=== PATIENT | female | born 1945 | race Caucasian/White ===

== ENCOUNTER 2017-07-17 05:29 | Inpatient (IN) | payer MEDICARE, OTHER ==
[2017-07-17] MEDS ORDERED: Ondansetron ODT 8 MG TAB ONE (05:35)
[2017-07-17] MEDS ORDERED: Fentanyl 100 MCG/2 ML VIAL ONE ×2 (05:35→06:59)
[2017-07-17] MEDS ORDERED: Clindamycin/D5W 900 mg/50 ml Premix Bag ONE (05:41)
[2017-07-17 07:41] LABS: Bilirubin Small (Negative); Blood, Urine Negative (Negative); Clarity CLOUDY (Clear); Glucose, Urine (Dipstick) Negative (Negative); Leukocyte Small (Negative); Nitrite Positive (Negative); Protein, Urine (Dipstick) Trace mg/dL (Neg-Trace); Urobilinogen 0.2 mg/dL (0.2-1.0)
[2017-07-17 07:44] LABS: Bacteria/HPF 2+ HPF (None Seen); RBC/HPF 0-3 HPF (0-3)
[2017-07-17 07:53] LABS: ALT (SGPT) 38 U/L (8-55); AST (SGOT) 48 U/L (5-34); Albumin 3.1 g/dL (3.4-4.8); Alkaline Phosphatase 34 U/L (40-150); Anion Gap 19 mmol/L (10-20); BUN (Urea Nitrogen) 28 mg/dL (9.8-20.1); Bilirubin, Total 0.7 mg/dL (0.2-1.2); CK (CPK) 299 U/L (29-168); Calc. Creatinine Clearance 0 mL/min (70-130); Carbon Dioxide 15 mmol/L (23-31); Chloride 113 mmol/L (98-107); Estimated GFR-MDRD 39; Globulin 1.8 g/dL (2.4-3.5); Glucose 122 mg/dL (83-110); Lipase 26 U/L (8-78); Protein, Total 4.9 g/dL (6.0-8.3); Sodium 144 mmol/L (136-145)
[2017-07-17 07:54] LABS: Pathc Cast-AUWi Flag 8.14 (0-2.49); Renal Epithelial 0-3 HPF (0-3); Transitional Epithelial 0-3 HPF (0-3)
[2017-07-17 07:55] LABS: Hyaline Casts/LPF 4-6 HYALINE CAST LPF (0-3 Hyaline)
[2017-07-17 07:56] LABS: Other Casts/LPF 0-3 FINELY GRAN LPF (0-3 Hyaline)
[2017-07-17 07:58] LABS: CKMB 3.2 ng/mL (0-6.6); Troponin I Less than 0.010 ng/mL (< 0.028)
--- NOTE | 2017-07-17 08:00 | RAD ---
PORTABLE CHEST 1 VIEW: DATE: 07/17/17. TIME: 5:59 a.m. HISTORY: Chest pain, septic shock. FINDINGS/IMPRESSION: The heart size is normal. There is a left subclavian central line with tip in the progression of the SVC. There is mild pulmonary vascular congestion. No lobar consolidation, pneumothoraces, or large effusions are seen. There are surgical clips in the right axilla. POS: [facility]
[2017-07-17 08:04] LABS: Band 52 % (5-11); Hemoglobin 12.7 g/dL (12.0-16.0); Lymphocytes 6 % (21-51); MDiff Complete? YES; Mean Corpuscular HGB CONC 33.5 g/dL (32.0-36.0); Mean Corpuscular Hemoglobin 33.5 pg (27.0-31.0); Mean Platelet Volume 8.1 fL (7.4-10.4); Metamyelocyte 8 % (0-0); Monocytes 1 % (0-10); Neutrophil 33 % (42-75); PLT Morphology Comment Appears Adequate; Platelet Count 166 thou/uL (130-400); RBC Distribution Width 12.6 % (11.5-14.5); Reflex for Review?? YES; Vacuoles SLIGHT; White Blood Cell (WBC) Count 4.3 thou/uL (4.8-10.8)
[2017-07-17] MEDS ORDERED: Acetaminophen 500 MG TAB ONE (08:22)
[2017-07-17] MEDS ORDERED: Piperacillin/Tazobactam 4.5 GM VIAL ONE (09:43)
--- NOTE | 2017-07-17 09:57 | CT ---
CT ANGIOGRAM LEFT UPPER EXTREMITY WITH CONTRAST: DATE: 07/17/17. TIME: 6:38 a.m. HISTORY: A 72-year-old female with left hand pain, swelling, and cyanosis. Sepsis. Evaluate for arterial occ lusion. TECHNIQUE: IV contrast injection of Isovue 370. Arterial bolus chasing technique scan attempted from upper ches t to tips of fingers. Because of initial poor contrast bolus timing and scan, this was repeated with a 2nd injection. FINDINGS: Contrast material is visualized in the left subclavian artery, axillary artery, brachial artery, and in the radial and ulnar arteries, to the mid forearm level. Distal to the mid forearm level, the con trast in the arterial lumen becomes too dilute to determine whether they are occluded or not. There is severe soft tissue edema of the hand and wrist, especially at the dorsum, extending into the mid forearm. There are patchy scattered areas of mild edema in the subcutaneous fat and elsewhere, including left axilla and left arm. No fracture or destructive osseous lesion is visualized in the radius, humerus, or left clavicle. Lung apices are clear of consolidations. There is a left subclavian central veno us catheter. Small amount of subcutaneous gas at the left anterior medial shoulder, probably related to recent placement of the catheter. IMPRESSION: 1. There is no occlusion of the left subclavian, axillary, or brachial arteries, or of the left radi al and ulnar arteries to the mid forearm level. 2. Distal to the mid forearm, the arteries cannot be evaluated with confidence because the contrast material becomes too dilute. 3. Severe soft tissue edema of the left hand, wrist, and distal forearm. POS: [facility]
[2017-07-17] MEDS ORDERED: Adacel (T-DAP) 0.5 ML VIAL ONE (11:20)
[2017-07-17] MEDS: Sodium Chloride 0.9% 1,000 ML IV SCH ×6 (11:45→23:34)
[2017-07-17] MEDS ORDERED: Norepinephrine 8 MG/0.9% NS 250 ML IVPB SCH (11:45)
[2017-07-17] MEDS ORDERED: Piperacillin/Tazobactam 3.375 GM in Sodium Chloride 0.9% 100 ML IVPB SCH (12:00)
--- NOTE | 2017-07-17 12:23 | CON ---
DATE OF CONSULTATION: 07/17/2017 REASON FOR CONSULTATION: Septic shock. HISTORY OF PRESENT ILLNESS: The patient is a 72-year-old female who presents with severe pain in her hand. She states that she was holding a rake yesterday shortly after raking. She started developin g swelling in the left thumb area. The thumb is now cyanotic the distal half and has some bolus look ing lesions on the dorsum. The swelling extends to the dorsum of her hand. She has been started on Levophed because of shock that has been refractory to fluids. The emergency room physician marleys peterson bernal that Dr. Whalen, the hand surgeon, has been called and is en route to see the patient. PAST MEDICAL HISTORY: She denies diabetes mellitus. She does have hypertension and hyperlipidemia. PAST SURGICAL HISTORY: She has had breast cancer surgery in the past. She has also had a lymph node dissection. SOCIAL HISTORY: Does not drink alcohol, does not smoke. ALLERGIES: CODEINE, OPIATES, and PENICILLINS. MEDICATIONS PRIOR TO ADMISSION: Toprol, hydrochlorothiazide, fenofibrate. REVIEW OF SYSTEMS: Remarkable for the swelling and pain in her left thumb. She has been nauseated. She has vomited some. She has had no hematemesis, melena, hematochezia, no hematuria or dysuria. PHYSICAL EXAMINATION: VITAL SIGNS: Temperature 99.1, pulse 104, O2 sat 97% on 2 liters, blood pressure 89/61, respiratory rate 29. GENERAL: She is currently on Levophed drip at 12 mcg per minute. HEENT: Pupils react. Sclerae anicteric. Oropharynx clear. NECK: No adenopathy, no JVD, no bruits. CARDIOVASCULAR: Heart is slightly tachycardic without murmur or gallop. LUNGS: Clear without wheezing or rhonchi. ABDOMEN: Soft, nontender, nondistended. EXTREMITIES: No clubbing, cyanosis or edema with the exception of the left hand. The left hand demo nstrates ecchymoses, cyanotic features in the distal half of the left thumb. She has ecchymoses on t he dorsum of the thumb. She has bullous type changes on the dorsum of the thumb and swelling extendi ng over her hand. She is able to move all of her digits, but has decreased range of motion of her th umb. She has no feeling at the distal phalanx of the thumb. Her radial pulse is brisk, her ulnar pu lses brisk. LABORATORY DATA: Sodium 144, potassium 3, chloride 113, CO2 of 15, BUN 28, creatinine 1.3, glucose 1 22. Lactate 7.1. CK-MB is 299. BNP 366, albumin 3.1. White blood cell count 4.3, hematocrit 38.0, platelet count 166 with 33% neutrophils, 52% bands. ASSESSMENT: 1. The patient has a life threatening infection of the hand with vascular compromise of her thumb, p robably from a compartment type syndrome. 2. Septic shock secondary to above. 3. History of hypertension and hyperlipidemia PLAN: The patient needs to continue aggressive fluid resuscitation. She needs urgent consultation w [facility]. Antibiotics have been started in the ER. If she has not received tetan us toxoid, it needs to be given, tetanus immunoglobulin needs to be given. I will try to find this o ut from the [place] documentation.
[2017-07-17] MEDS ORDERED: Midazolam HCl 2 mg/2 ml Vial ONE (12:38)
[2017-07-17] MEDS ORDERED: Fentanyl 250 MCG/5 ML VIAL ONE (12:38)
[2017-07-17] MEDS ORDERED: Ondansetron HCl/PF 4 MG/2 ML Vial ONE (12:38)
[2017-07-17] MEDS ORDERED: Ondansetron HCl/PF 4 MG/2 ML Vial IVP PRN (12:45)
[2017-07-17] MEDS ORDERED: Clindamycin/D5W 300 MG/50 ML BAG IVPB SCH (12:45)
[2017-07-17] MEDS ORDERED: Ondansetron ODT 4 MG TAB PO PRN (12:45)
[2017-07-17] MEDS ORDERED: Bupivacaine PF 0.5% 30 ML VIAL ONE (12:47)
[2017-07-17] MEDS ORDERED: Bacitracin Zinc Ointment 30 gm TUBE ONE (12:47)
[2017-07-17] MEDS ORDERED: Sodium Chloride 0.9% 50 ML ONE (12:47)
[2017-07-17 12:54] LABS: Platelet Count 179 thou/uL (130-400)
[2017-07-17 13:00] LABS: Fibrinogen 310 mg/dL (253-463)
[2017-07-17] MEDS ORDERED: HyperTET 250 UNITS/ML 1 ML SYRINGE IM ONE (13:00)
[2017-07-17] MEDS ORDERED: Clindamycin/D5W 900 MG in Premix Bag 1 BAG IVPB SCH (13:00)
[2017-07-17 13:01] LABS: INR-International Normal Ratio 1.6; PTT 33.4 SEC (22.9-36.1); Prothrombin Time 19.1 SEC (12.0-14.7)
[2017-07-17 13:02] LABS: D-Dimer Test 3.69 *mcg/mL (0.27-0.43)
[2017-07-17] MEDS ORDERED: Calcium Chloride 1 GM/10 ML Abboject SYRINGE ONE (13:13)
[2017-07-17] MEDS ORDERED: Thrombin 5000 UNITS/5 ML VIAL ONE ×2 (13:13→14:51)
[2017-07-17] MEDS ORDERED: Propofol 1,000 MG/100 ML VIAL IV ONE (13:13)
[2017-07-17] MEDS ORDERED: EPINEPHrine 1 MG/10 ML Abboject SYRINGE ONE (13:13)
[2017-07-17] MEDS ORDERED: PROPOFOL 200 MG/20 ML VIAL ONE (13:13)
[2017-07-17] MEDS ORDERED: Lidocaine 1% PF 5 ML VIAL ONE (13:13)
[2017-07-17] MEDS ORDERED: Dexamethasone 20 MG/5 ML VIAL ONE (13:13)
[2017-07-17] MEDS ORDERED: Sodium Bicarb 50 MEQ/50 ML VIAL ONE (13:13)
[2017-07-17] MEDS ORDERED: PHENYLEPHRINE-NS 100 MCG/ML 10 ML SYRINGE ONE ×3 (13:13→15:26)
[2017-07-17 13:31] LABS: FSP-Qualitative ABNORMAL (Normal); FSP-Semiquantitative >=5 & <20 mcg/mL (Less than 5)
[2017-07-17] MEDS ORDERED: Vancomycin HCl 1.25 GM in Sodium Chloride 0.9% 250 ML 250 ML IVPB SCH ×2 (14:00→18:30)
[2017-07-17] MEDS ORDERED: Clindamycin/D5W 600 MG in Premix Bag 1 BAG IVPB SCH (14:00)
[2017-07-17] MEDS ORDERED: Potassium Chloride 20 MEQ/100 ML PREMIX BAG ONE (14:29)
[2017-07-17] MEDS ORDERED: Sodium Bicarb 50 MEQ/50 ML Abboject 8.4% SYRINGE ONE (14:29)
[2017-07-17] MEDS ORDERED: Sodium Chloride 0.9% 10 ML ONE (14:33)
[2017-07-17] MEDS ORDERED: Vasopressin 40 UNIT, Admixture Fee 1 EACH in Sodium Chloride 0.9% 100 ML IV STA (14:42)
[2017-07-17] MEDS ORDERED: Norepinephrine 8 MG/0.9% NS 250 ML ONE (15:01)
[2017-07-17] MEDS ORDERED: Ventilator Sedation Protocol 1 EACH FS SCH (15:40)
[2017-07-17] MEDS ORDERED: CCU Electrolyte Replacement 1 EACH FS SCH (15:40)
[2017-07-17 15:41] LABS: PTT 32.5 SEC (22.9-36.1)
[2017-07-17] MEDS ORDERED: Potassium Chloride 40 MEQ in Sodium Chloride 0.9% 250 ML 250 ML IVPB PRN (15:47)
[2017-07-17] MEDS ORDERED: Potassium Chloride 20 MEQ TAB PO PRN (15:47)
[2017-07-17] MEDS ORDERED: Magnesium Oxide 400 MG TAB PO PRN ×2 (15:47)
[2017-07-17] MEDS ORDERED: Potassium Phosphate 12 MMOL in Sodium Chloride 0.9% 250 ML 250 ML IV PRN (15:47)
[2017-07-17] MEDS ORDERED: Potassium Phosphate 15 MMOL in Sodium Chloride 0.9% 250 ML 250 ML IV PRN (15:47)
[2017-07-17] MEDS ORDERED: CCU ELECTROLYTE REPLACEMENT PROTOCOL FS PRN (15:47)
[2017-07-17] MEDS ORDERED: Potassium Phosphate 9 MMOL in Sodium Chloride 0.9% 100 ML IVPB PRN (15:47)
[2017-07-17] MEDS ORDERED: Magnesium 2 GM/NS 0.9% 100 ML 2 GM in Premix Bag 1 BAG IVPB PRN (15:47)
[2017-07-17] MEDS ORDERED: Fentanyl BOLUS 250 ML IVPB PRN (15:48)
[2017-07-17] MEDS ORDERED: Propofol BOLUS 1,000 MG/100 ML VIAL IV PRN (15:48)
[2017-07-17] MEDS ORDERED: DISCONTINUE PREVIOUS NARCOTIC PAIN MEDICATIONS AND BENZODIAZEPINES FS SCH (15:48)
[2017-07-17 15:53] LABS: INR-International Normal Ratio 1.6; Prothrombin Time 19.4 SEC (12.0-14.7)
[2017-07-17 16:00] LABS: FSP-Qualitative ABNORMAL (Normal); FSP-Semiquantitative >=5 & <20 mcg/mL (Less than 5)
[2017-07-17] MEDS: fentaNYL Citrate/PF 2,000 MCG in Sodium Chloride 0.9% 60 ML IV SCH (16:20)
[2017-07-17] MEDS ORDERED: Rocuronium Bromide 50 MG/5 ML VIAL ONE (16:30)
[2017-07-17 17:04] LABS: Actual Bicarbonate (HCO3a) 13.7 mEq/L (22-26); Base Excess (BEa) -10.7 mEq/L (0 (+/-) 2.5); CO2 Tension 26.4 mmHg (35.0-45.0); Hematocrit-ABG 36.8 % (36.0-47.0); Hemoglobin (Hb) 12.1 g/dL (12.0-16.0); O2 Tension (PaO2) 91.5 mmHg (80.0-100.0); pH, Arterial 7.33 (7.35-7.45)
[2017-07-17 17:05] LABS: Puncture Site LINE
[2017-07-17] MEDS: Propofol 1,000 MG/100 ML VIAL IV PRN (17:55)
--- NOTE | 2017-07-17 18:09 | RAD ---
CHEST ONE VIEW: 07/17/17 COMPARISON: 07/17/17 HISTORY: Endotracheal tube placement and nasogastric tube placement. FINDINGS: Portable supine chest demonstrates a left sided central venous catheter, unchanged in position. Heart is enlarged. There is fullness of the left hilum/perihilar region. Costophrenic angles are clear. No pneumothorax on supine projection. There is an endotracheal tube with the distal tip at the level of the clavicle. Nasogastric tube exte nds beyond the diaphragm. Distal tip is not seen. IMPRESSION: 1. Lines and tubes as above. 2. Fullness in the left perihilar region. Findings may in part be due to patient rotation. Left perihilar infiltrate cannot be excluded. POS: [facility]
[2017-07-17] MEDS: Clindamycin/D5W 900 MG in Premix Bag 1 BAG IVPB SCH ×2 (18:38→23:36)
[2017-07-17] MEDS: Vasopressin 40 UNIT, Admixture Fee 1 EACH in Sodium Chloride 0.9% 100 ML IV SCH (19:39)
[2017-07-17] MEDS: Acetaminophen 1,000 MG in Premix Bag 1 BAG IVPB PRN (19:45)
[2017-07-17] MEDS ORDERED: Cefepime 1 GM SYRINGE 1 GM in Sodium Chloride 0.9% 100 ML IVPB SCH (20:00)
[2017-07-17] MEDS: Cefepime 1 GM, Admixture Fee 1 EACH in Sterile Water 10 ML SLOW IVP SCH (20:49)
[2017-07-17] MEDS: Pantoprazole 40 MG VIAL IVP SCH (20:50)
[2017-07-17] MEDS ORDERED: Famotidine/PF 20 mg/2ml Vial SLOW IVP SCH (21:00)
[2017-07-17] MEDS ORDERED: Vancomycin HCl 1 GM in Premix Bag 1 BAG IVPB SCH (21:00)
[2017-07-17] MEDS ORDERED: Cefepime 1 GM in Sodium Chloride 0.9% 100 ML IVPB SCH (22:00)
--- NOTE | 2017-07-17 22:20 | CON ---
DATE OF CONSULTATION: 07/17/2017 REASON FOR CONSULTATION: Necrotizing infection, left upper extremity. HISTORY OF PRESENT ILLNESS: A 72-year-old who has a history of hyperlipidemia, hypertension, history of breast cancer with lymphadenectomy in the left upper extremity, who developed a left hand inflammatory process. The time of onset is not clear. In the ER physician's note, it is stated that it started a few days before admission. In Dr. Kyle Carlos's note, it is stated that it developed the day before admission, and possibly associated with an injury to the area. She developed bullous lesions in the dorsal aspect of the hand, cyanosis of the distal left thumb, and extension of the inflammatory process towards the left arm. She was hypotensive on arrival and was given IV fluids and vasopressors, as well as broad-spectrum antimicrobial therapy. She has now undergone surgical debridement under Dr. Whalen's care. The surgical report is pending. There is a handwritten note that states that she had a tendon exploration and fasciotomy. We are awaiting on the final report. Cultures are pending at this time. I do not see any microbiology specimens yet submitted and the reports number of cultures have been submitted. The patient is intubated and sedated at this time. PAST MEDICAL HISTORY: Hypertension, hyperlipidemia. Past medical history also includes breast cancer in right side with lymphadenectomy, apparently in remission. SOCIAL HISTORY: Never a smoker. FAMILY HISTORY: Not available. ALLERGIES: CODEINE, mostly gastrointestinal symptoms; and PENICILLIN with unknown type of allergic reaction. CURRENT MEDICATIONS: We have clindamycin, fentanyl, lorazepam, magnesium, morphine, norepinephrine, pantoprazole, Zosyn, and vancomycin. PHYSICAL EXAMINATION: VITAL SIGNS: T-max 101.5, BP 129/78, bladder temperature 101.3, heart rate 121 , respiratory rate 24, O2 sats 95% with 60 and 10 of settings. Output data, we have 200 mL of Floyd output. SKIN: No wound photos are available. The left upper extremity was pretty much the whole extent of the left upper extremity was covered by dressing and there was 2 or 3 drainage catheters. I believe those catheters were in the tendon areas and the patient has a subclavian central line and Floyd catheter in place. She has a right groin A-line. The skin exam shows the area of cyanosis , which is visible at the tip of the exposed left thumb. HEENT: The patient has white sclerae. Pupils are miotic symmetric. There is no jugular vein distention. LUNGS: Symmetric air entry. HEART: S1, S2 regular rate. ABDOMEN: Slightly distended. Bowel sounds are not present. No ascites, no organomegaly. EXTREMITIES: She has edema in lower extremities. The feet are cold to touch. Pulses are faintly palpable in dorsalis pedis and there is no spontaneous motion in the limbs and the patient is sedated. LABORATORY DATA: White cell count 4.3 with a bandemia 52%, hemoglobin 12.7, platelets 166, and the INR 1.6. PH 7.33, pCO2 of 26, pO2 of 91. Lactic acid was 7.1 and 9.0. Troponin is less than 0.010. Urinalysis with positive nitrite , bilirubin small, wbc count 7-10. Reports include upper extremity CTA, which showed no occlusion of the artery supplying to the left upper extremity; severe soft tissue edema of left hand, wrist, and distal forearm. Pathology of these surgical specimen is pending. There is a hand x-ray, which showed no foreign body seen and no bony abnormalities. ASSESSMENT: Hypertension; prior breast cancer, in remission, with right-sided lymphadenectomy reported; and now with inflammatory process with aggressive nature, likely necrotizing fasciitis. 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 About 50% of streptococcal necrotizing fasciitis cases are associated with toxic shock syndrome as well. The nature of the organism is not yet clear. We do not have samples processed for Gram stain. We will switch the patient to cefepime from Zosyn and increase clindamycin dosage to q.6 hours. Maintain vancomycin. Immunoglobulin administration is controversial not all lots of Ig available have significant anti-strep antibody concentrations,and there is not a consensus in the utilization of immunoglobulin for this kind of syndrome. Hyperbaric can be considered, but the most important adjunctive intervention is surgical debridement, which has already been carried out with subsequent revision of the wound as needed, if pt survives the initial days following admission. MTDD
[2017-07-17] MEDS: Norepinephrine 8 MG in Sodium Chloride 0.9% 250 ML 250 ML IVPB SCH (22:27)
--- NOTE | 2017-07-18 01:04 | OP ---
DATE OF PROCEDURE: 07/17/2017 PREOPERATIVE DIAGNOSES: 1. Left thumb flexor tenosynovitis with possible spread along the flexor tendons into the palm, fore arm and dorsal hand. 2. Probable compartment syndrome clinically. FINDINGS: Marked amount of fluid, but not mucopurulence in the dorsal compartments of the hand, and the distal aspect of the palm, the volar, superficial and deep compartments of the forearm, but not s een in the dorsal compartment of the forearm, but not seen proximally. There was marked swelling and tension of the skin. So compartment syndrome confirmed clinically. Other findings; flexor tenosyno vitis of the flexor digitorum profundus, superficialis and flexor pollicis longus tendons to all digi ts in the palm to the level of the proximal third of carpal tunnel, but not going further this or not traveling down the ulnar bursa. COMPLICATIONS: None. PROCEDURES PERFORMED: 1. Drainage, flexor tendon sheath flexor pollicis longus. 2. Radical flexor tenosynovectomy flexor pollicis longus in the thumb. 3. Radical flexor tenosynovectomy flexor pollicis longus in the carpal canal and wrist. 4. Flexor digitorum profundus radical flexor tenosynovectomy to all four tendons. 5. Flexor digitorum superficialis radical flexor tenosynovectomy in the carpal canal at wrist level in all 4 tendons. 6. Dorsal hand fasciotomy. 7. Palmar hand and wrist fasciotomy. 8. Deep volar forearm fasciotomy, complete. 9. Superficial volar forearm fasciotomy complete. 10. Mobile wad 3 proximal forearm/elbow level lateral fasciotomy. 11. Dorsal forearm fasciotomy. 12. Doppler vascular examination intraoperative. 13. Application of thrombin-soaked Gelfoam to the bleeding areas. HISTORY: The patient reported to the hospital after being evaluated at the outside facility early in the morning for what she said by historical review was a laceration while cutting chery 5 days prior to this admission and then one day prior developed excruciating pain to the point she could not slee p the night before admission and reported to an emergency room in [place], [place]. She was evacu ated here and I was called because she had evidence of tension of her compartments, poor ability to e xtend, pain with passive stretch and had develop evidence of sepsis as seen by vascular inability to maintain this stable parameters. For this reason, she underwent emergent surgery to include the comp artment releases as listed above. ESTIMATED BLOOD LOSS: 200 mL TOURNIQUET TIME: 63 minutes. FINDINGS: Preoperatively and intraoperatively, the patient had early evidence of disseminated intrav ascular labs with elevated prothrombin to almost 19.8, although not on anticoagulant, fibrin split pr oducts are positive and D-dimer positive. Physical exam prior to that revealed that she had lost lalo e of the normal color to the distal 1 cm of her thumb palmarly and only the distal 5 mm dorsally with an intact eponychial fold, capillary refill and color being pink both before and after the procedure . On gross findings; 1. Jose pus flexor pollicis longus and the entire palmar and some mid lateral aspects of the thumb, left. 2. Jose pus escaping towards the distal one-half of flexor pollicis longus with mucopurulent tenosy novial lines of all the tendons and flexors within the canal. 3. Fluid within all compartments bursa, dorsal hand, palmar hand, wrist, and hypothenar. DESCRIPTION OF PROCEDURE: After successful general endotracheal anesthesia, the limb was prepped and draped. The patient had the limb exsanguinated and tourniquet inflated to 250 mmHg pressure. Befor e that the exam that was described above was performed and we clearly see she had marked edema and te nse compartments all the way up to the mobile wad dorsally and all the way to the flexion crease of t he elbow antecubital area of prominent. We first then after exsanguination of limb, lateral incision began in the mid lateral aspect of the distal phalanx on both sides because there was marked edema o n one side and there was an entrance wound of 5 mm in the opposite side. We then carried the zigzag incision all the way down to the level of the carpal canal including a modified extended carpal tunne l release incision for evaluation of this area. We then gently dissected the neurovascular bundle on the thumb, found mucopurulent surrounded in a salmon colored watery type exudate. We then went into the tendon sheath which was swollen and edematous. It was felt between the oblique evan and A2 pu lley. Here, we found marked flexor tenosynovitis. Mucopurulence was seen. We did a radical flexor tenosynovitis of flexor pollicis longus tendon here. We then had extended the proximal incision megan g the carpal tunnel that was a zigzag on the forearm, carried this through skin and subcutaneous tiss ue, found the same type fluid along the flexor pollicis longus tendon in the distal one-half of this canal and with the distal 1 cm of several other flexor digitorum profundus and superficialis tendons. For this reason, a radical flexor tenosynovectomy was accomplished of all of these tendons in the c arpal canal. We then performed both open and catheter tip irrigation within the flexor tendon sheath after the flexor tendon sheath radical tenosynovectomy and debridement until it was clean clinically . We also performed both open irrigation with a total of 9 liters of normal saline in all the wounds that will be described before this dictation is terminated today to obtain a post-debridement accura cy and bacterial control. We then extended the incision approximately 10 cm proximal to the volar flexion crease of the elbow, created a zigzag incision beginning at the antecubital fossa and coursing through the 5 cm of the mor e distal incision. From here, we visualized the median nerve protected to perform and then rel eased the superficial and deep fascia. Then, we performed the same technique on the antecubital deepa a using a zigzag lazy S incision as we did for all site, carried through skin and subcutaneous tissue , and released the superficial and deep fascia. The patient then had this area irrigated with 3 liters of normal saline alone. We then extended the incision into the proximal aspect of the forearm and performed the same fasciotomy as was done distal ly. Then, we turned our attention to the dorsal hand, where this was a second most edematous area ot her than the thumb. We then performed a thenar space fasciotomy, a fascia between the first and seco nd metacarpals and on the ulnar side of the long finger metacarpal, place a decision as utility and a llows us to perform a fasciotomy on both sides of the ring finger metacarpal, both sides of the small finger metacarpal to include a hypothenar release. Now all releases were done, all the mucopurulent material was excised include all manufacture potential problems. We then finished our 9 liters irri gation, total of 100 mL irrigation of tendon sheath, 10 mL at that time with normal saline, and the p atient had no evidence of anesthetic or operative complication. No wound was closed whatsoever and t he tourniquet was finally deflated after total of 63 minutes, we had to use thrombin soaked Gelfoam i n several proximal areas because of the bleeding. The patient did have an elevated fibrin split prod ucts, D-dimer, as well as a PT of 19.8 so we suspected early vascular compromise and she will remain in ICU after this. A bulky dressing wet-to-dry over the Tegaderms was applied, long arm splint in ne utral position. The patient left the operating room without evidence of anesthetic or operative comp lication.
[2017-07-18] MEDS: fentaNYL Citrate/PF 2,000 MCG in Sodium Chloride 0.9% 60 ML IV SCH (03:17)
[2017-07-18] MEDS: Cefepime 1 GM, Admixture Fee 1 EACH in Sterile Water 10 ML SLOW IVP SCH ×2 (04:00→11:35)
[2017-07-18] MEDS: Acetaminophen 1,000 MG in Premix Bag 1 BAG IVPB PRN ×2 (04:00→17:12)
[2017-07-18 04:36] LABS: ALT (SGPT) 42 U/L (8-55); AST (SGOT) 62 U/L (5-34); Albumin 2.7 g/dL (3.4-4.8); Alkaline Phosphatase 17 U/L (40-150); Anion Gap 23 mmol/L (10-20); BUN (Urea Nitrogen) 36 mg/dL (9.8-20.1); Bilirubin, Total 0.8 mg/dL (0.2-1.2); Calc. Creatinine Clearance 41 mL/min (70-130); Calcium 7.1 mg/dL (7.8-10.44); Carbon Dioxide 12 mmol/L (23-31); Chloride 110 mmol/L (98-107); Estimated GFR-MDRD 30; Globulin 2.2 g/dL (2.4-3.5); Glucose 125 mg/dL (83-110); Magnesium 1.2 mg/dL (1.6-2.6); Phosphorus 5.7 mg/dL (2.3-4.7); Potassium 4.2 mmol/L (3.5-5.1); Protein, Total 4.9 g/dL (6.0-8.3); Sodium 141 mmol/L (136-145)
[2017-07-18 04:47] LABS: Band 29 % (5-11); Hemoglobin 12.3 g/dL (12.0-16.0); Lymphocytes 2 % (21-51); MDiff Complete? YES; Mean Corpuscular HGB CONC 33.7 g/dL (32.0-36.0); Mean Corpuscular Hemoglobin 34.4 pg (27.0-31.0); Mean Platelet Volume 8.5 fL (7.4-10.4); Metamyelocyte 3 % (0-0); Monocytes 9 % (0-10); Neutrophil 57 % (42-75); PLT Morphology Comment Appears Adequate; Platelet Count 128 thou/uL (130-400); RBC Distribution Width 13.1 % (11.5-14.5); Red Blood Cell (RBC) Count 3.59 mill/uL (4.20-5.40); White Blood Cell (WBC) Count 9.1 thou/uL (4.8-10.8)
[2017-07-18] MEDS: Clindamycin/D5W 900 MG in Premix Bag 1 BAG IVPB SCH ×3 (05:45→18:05)
[2017-07-18] MEDS: Norepinephrine 8 MG in Sodium Chloride 0.9% 250 ML 250 ML IVPB SCH (06:01)
[2017-07-18 07:23] LABS: CO2 Tension 29.6 mmHg (35.0-45.0); pH, Arterial 7.19 (7.35-7.45)
[2017-07-18 07:24] LABS: Base Excess (BEa) -15.8 mEq/L (0 (+/-) 2.5); Hematocrit-ABG 36.1 % (36.0-47.0); Hemoglobin (Hb) 11.9 g/dL (12.0-16.0); O2 Tension (PaO2) 112.7 mmHg (80.0-100.0); Puncture Site ALINE
[2017-07-18] MEDS ORDERED: HETASTARCH 6% IVPB SCH (07:45)
[2017-07-18] MEDS ORDERED: Sodium Phosphate 40 MMOL in Sodium Chloride 0.9% 250 ML 250 ML IVPB SCH (08:00)
--- NOTE | 2017-07-18 08:06 | PRG ---
DATE OF SERVICE: 07/18/2017 A 35 minutes critical care time. SUBJECTIVE: The patient remains intubated on mechanical ventilation. She indicates that she is not in pain. She is receiving low dose of propofol and fentanyl. PHYSICAL EXAMINATION: VITAL SIGNS: Temperature is 98.8 with a T-max of 99.5, pulse between 95 and 130, CVP not accurate at this time, blood pressure 96/53. She is currently receiving a vasopressin drip at 0.04 units per mi nute and a Levophed drip at 6 mcg per kilogram per minute. A 24-hour intake has been 4087, output 17 75. NEUROLOGICAL: She is awake and can follow. HEENT: Pupils react. Sclerae anicteric. Oropharynx clear. NECK: No JVD. LUNGS: Fairly clear anteriorly bilaterally. CARDIOVASCULAR: S1, S2, tachycardic without murmur. ABDOMEN: Soft and nontender. EXTREMITIES: She has a bandage over her left arm, which is currently being assessed by Dr. Whalen. X-RAY FINDINGS: Her chest x-ray shows some mild pulmonary edema. ET tubes in good position. OG tub e in good position. LABORATORY DATA: Sodium 141, potassium 4.2, chloride 110, CO2 12, anion gap 23, BUN 36, creatinine 1 .7, glucose 127, phosphorus 5.7, magnesium 1.2. White blood cell count 9.1, hematocrit 36.7, platele t count 128. Sodium 141, potassium 4.2, chloride 110. ABG; pH 7.19, pCO2 of 29, pO2 of 112 on SIMV rate 20, tidal volume 500, PEEP 5, pressure support 10, FIO2 40%. ASSESSMENT: 1. Septic shock secondary to soft tissue infection in the hand. 2. Continued severe lactic acidosis. 3. Acute respiratory failure requiring mechanical ventilation. 4. Mild renal dysfunction. 5. Hypomagnesemia. PLAN: 1. Not weanable at this state secondary to acidosis. 2. Continue broad spectrum IV antibiotics under the direction of Dr. Whtiaker. 3. Wean vasopressor as tolerated. 4. Change IV fluids to D5W with bicarbonate. 5. Dr. Whalen is requested a low dose infusion of Hespan. 6. Add vitamin C and thiamine. 7. The patient is going down for debridement later today. We will consider starting tube feeds abby rrow.
[2017-07-18] MEDS ORDERED: Pantoprazole 40 MG VIAL IVP SCH (09:00)
--- NOTE | 2017-07-18 09:09 | RAD ---
CHEST 1 VIEW: Date: 07/18/17 HISTORY: Dyspnea. Intubated. Follow-up. COMPARISON: 07/17/17. FINDINGS: Cardiac silhouette is magnified and enlarged. Pulmonary vasculature remains engorged. Bilateral perih ilar and bibasilar infiltrates have worsened slightly since the previous exam. Mediastinum is midline with aortic calcification. Lines and tubes appear unchanged in position. No evidence of pneumothorax . IMPRESSION: Increasing pulmonary vascular congestion/developing edema. POS: [facility]
[2017-07-18] MEDS: SODIUM BICARBONATE IV SCH (09:24)
[2017-07-18] MEDS: DEXTROSE 5% IV SCH (09:24)
[2017-07-18] MEDS: WATER IV SCH (09:24)
[2017-07-18 09:29] LABS: Lactic Acid Greater than 13.4 mmol/L (0.5-2.2)
[2017-07-18] MEDS: Lorazepam 2 MG/ML VIAL SLOW IVP PRN ×2 (10:59→19:07)
[2017-07-18] MEDS ORDERED: PROPOFOL 200 MG/20 ML VIAL ONE (12:47)
[2017-07-18] MEDS ORDERED: PHENYLEPHRINE-NS 100 MCG/ML 10 ML SYRINGE ONE (12:47)
--- NOTE | 2017-07-18 16:56 | PDOC.PN ---
- Subjective Encounter Start Date: 07/18/17 Encounter Start Time: 14:20 Pt remains critically. seeing for presumed stresp abscess of left hand and left forearm cellultiis with septic shock. weaned off of levophed but still requiring vasopressin. thumb tip dusky, planning to go back to OR this afternoon for debridement Cx back now from thumb drainage, all growing Grp A strep (pyogenes). Afbrile, remains intbated. daughter at bedside, updated. discussed case with Dr Whitaker and with Dr leavitt as well ROs not obtainable remains on Vanc, Zosyn, and clinda. can streamline to ancef plus clinda for now. plan to continue clinda for 72 hours for toxin inhibition - Objective Resuscitation Status: Resuscitation Status FULL:Full Resuscitation MAR Reviewed: Yes Vital Signs & Weight: Vital Signs (12 hours) Temp Pulse Resp BP Pulse Ox 07/18/17 16:00 100.0 F H 25 H 07/18/17 14:41 127 H 125/79 07/18/17 14:38 116 H 25 H 98 07/18/17 14:00 25 H 07/18/17 12:00 25 H 07/18/17 10:40 115 H 105/60 07/18/17 10:36 111 H 25 H 92 L 07/18/17 10:00 25 H 07/18/17 08:00 98.6 F 110 H 25 H 95 07/18/17 06:47 109 H 104/62 07/18/17 06:44 115 H 23 H 99 07/18/17 06:00 22 H Weight Admit Weight 190 lb Weight 190 lb 4.143 oz Most Recent Monitor Data Heart Rate from ECG 135 NIBP 112/67 NIBP BP-Mean 79 Respiration from ECG 25 SpO2 98 I&O: 07/17/17 07/18/17 07/19/17 06:59 06:59 06:59 Intake Total 4087.4 Output Total 1775 555 Balance 2312.4 -555 Result Diagrams: 07/18/17 04:10 07/18/17 04:10 Radiology Reviewed by me: Yes Phys Exam - Physical Examination HEENT: PERRLA, sclera anicteric, oral pharynx no lesions orally intubated Neck: no nodes, no JVD, supple, full ROM Respiratory: no wheezing, no rales, no rhonchi, clear to auscultation bilateral tachy, regular Gastrointestinal: soft, no distention, positive bowel sounds Musculoskeletal: pulses present, edema present LUE dressed, left thumb cool and dusky Lymphatic: no nodes Deviation from normal: delayed cap refill Dx/Plan (1) Septic shock Code(s): A41.9 - SEPSIS, UNSPECIFIED ORGANISM; R65.21 - SEVERE SEPSIS WITH SEPTIC SHOCK Status: Acute Comment: remains on pressors, IV fluids. Pulm following, appreciate their assistance (2) Abscess of left hand Code(s): L02.512 - CUTANEOUS ABSCESS OF LEFT HAND Status: Acute Comment: s/ p I&D #1 07/17, to OR for #2 this afternoon. (3) Cellulitis of left forearm Code(s): L03.114 - CELLULITIS OF LEFT UPPER LIMB Status: Acute (4) Infection due to Streptococcus pyogenes Code(s): B95.4 - OTH STREPTOCOCCUS THE CAUSE OF DISEASES CLASSD ELSWHR Status: Acute Comment: Grp A strep (pyogenes) on hand culture as expected. - Plan cont current plan of care, plan discussed w/ family, continue antibiotics, respiratory therapy * .
[2017-07-18] MEDS ORDERED: Bupivacaine 0.25% HCL 30 ML VIAL ONE (17:10)
[2017-07-18] MEDS ORDERED: Bacitracin Zinc Ointment 30 gm TUBE ONE (17:10)
[2017-07-18] MEDS ORDERED: Sodium Chloride 0.9% 10 ML ONE ×2 (17:11→21:29)
[2017-07-18] MEDS ORDERED: Thrombin 5000 UNITS/5 ML VIAL ONE (17:39)
[2017-07-18] MEDS ORDERED: Lidocaine 1% (PF) 30 ML VIAL ONE (17:39)
[2017-07-18] MEDS ORDERED: Bupivacaine PF 0.5% 30 ML VIAL ONE (17:39)
[2017-07-18] MEDS ORDERED: Vancomycin HCl 1.25 GM in Sodium Chloride 0.9% 250 ML 250 ML IVPB SCH (18:00)
[2017-07-18] MEDS: CEFAZOLIN/Water 2 GM/20 ML SYRINGE SLOW IVP SCH (18:05)
[2017-07-18] MEDS ORDERED: Ketamine 50 MG/ML VIAL ONE (18:19)
[2017-07-18] MEDS ORDERED: Phenylephrine HCL 10 MG/ML VIAL ONE (18:20)
[2017-07-18] MEDS ORDERED: Propofol 1,000 MG/100 ML VIAL IV ONE (18:20)
[2017-07-18] MEDS ORDERED: Propofol 500 MG/50 ML VIAL ONE (18:20)
[2017-07-18] MEDS: Vasopressin 40 UNIT, Admixture Fee 1 EACH in Sodium Chloride 0.9% 100 ML IV SCH (20:09)
[2017-07-18] MEDS: Pantoprazole 40 MG VIAL IVP SCH (20:09)
[2017-07-18] MEDS ORDERED: Fentanyl 250 MCG/5 ML VIAL ONE (21:53)
[2017-07-18] MEDS ORDERED: Heparin 25,000 units/D5W 500 ML IV SCH (22:00)
[2017-07-18 23:08] LABS: Hemoglobin 11.2 g/dL (12.0-16.0); Mean Corpuscular Hemoglobin 33.4 pg (27.0-31.0); Mean Platelet Volume 9.3 fL (7.4-10.4); Platelet Count 90 thou/uL (130-400); RBC Distribution Width 13.2 % (11.5-14.5); Red Blood Cell (RBC) Count 3.36 mill/uL (4.20-5.40); White Blood Cell (WBC) Count 8.8 thou/uL (4.8-10.8)
[2017-07-18 23:24] LABS: Band 16 % (5-11); Eosinophils 5 % (0-10); Lymphocytes 7 % (21-51); MDiff Complete? YES; Macrocytosis MODERATE=16-30 cells (100X) (0-5/hpf); Metamyelocyte 7 % (0-0); Monocytes 4 % (0-10); Myelocyte 1 % (0-0); Neutrophil 60 % (42-75); PLT Morphology Comment Appears Decreased
[2017-07-19] MEDS: Clindamycin/D5W 900 MG in Premix Bag 1 BAG IVPB SCH ×4 (00:51→18:12)
[2017-07-19] MEDS ORDERED: Heparin 25,000 units/D5W 500 ML IV SCH (01:30)
[2017-07-19] MEDS ORDERED: Heparin 10,000 UNITS/ 10 ML VIAL SLOW IVP SCH ×2 (01:30→01:45)
--- NOTE | 2017-07-19 01:44 | PRG ---
DATE OF SERVICE: 07/18/2017 SUBJECTIVE: Ms. Grande is in the ICU. She is going for further surgical revision of her left upper e xtremity, areas of inflammatory change and wound. The vasopressors are starting to be weaned off. S he is off the Levophed suggested on vasopressin right now. She is awake and able to understand spoke n word. She follows commands and does not seem to be in distress. OBJECTIVE: VITAL SIGNS: T-max 101.5 yesterday, she is now 100, BP 107/52. Her O2 sats are at 100 and her FIO2 is dropped to 40, PEEP is down to 5. HEENT: Little bit of conjunctival hyperemia. Pupils are equal. LUNGS: Symmetric air entry. HEART: S1, S2, regular rate. ABDOMEN: Soft. EXTREMITIES: Left extremity with a bulky dressing. I can see the ischemic or cyanotic sump in the l eft side. LABORATORY DATA: The white cell count is 9.1, hemoglobin 12, platelets 128,000. Bands are at 29%, w hich is down from yesterday. The creatinine is 1.67, which is a bit higher than yesterday. Magnesiu m 1.2, albumin 2.7. Lactic acid greater than 13.4. Microbiology: Four samples submitted from the s urgical procedure and all four with Streptococcus pyogenes, pathology of surgical specimen consistent with necrotizing fasciitis. ASSESSMENT AND DISCUSSION: Necrotizing fasciitis secondary to group A Streptococcus associated with toxic shock syndrome/sepsis. Patient is going for further surgical revision of the wound and further debridement as needed. Currently on cefepime, clindamycin, and vancomycin. Patient will be transit ioned to cefazolin. Continue clindamycin. Discontinue vancomycin and further surgical debridement. Again, immunoglobulin has been used in this situation, but there is not a consensus that it is benef icial and hyperbaric can be considered. She seems to be improving her hemodynamics and ventilatory s tatus.
[2017-07-19 02:28] LABS: D-Dimer Test 4.88 *mcg/mL (0.27-0.43)
[2017-07-19 02:33] LABS: ALT (SGPT) 46 U/L (8-55); AST (SGOT) 108 U/L (5-34); Albumin 2.2 g/dL (3.4-4.8); Alkaline Phosphatase 25 U/L (40-150); Anion Gap 20 mmol/L (10-20); BUN (Urea Nitrogen) 52 mg/dL (9.8-20.1); Bilirubin, Total 1.1 mg/dL (0.2-1.2); Calc. Creatinine Clearance 40 mL/min (70-130); Calcium 6.6 mg/dL (7.8-10.44); Carbon Dioxide 16 mmol/L (23-31); Chloride 110 mmol/L (98-107); Estimated GFR-MDRD 29; Globulin 1.8 g/dL (2.4-3.5); Glucose 126 mg/dL (83-110); Magnesium 1.7 mg/dL (1.6-2.6); Phosphorus 4.5 mg/dL (2.3-4.7); Potassium 3.5 mmol/L (3.5-5.1); Sodium 142 mmol/L (136-145)
[2017-07-19 02:39] LABS: Hemoglobin 10.4 g/dL (12.0-16.0); Mean Corpuscular HGB CONC 33.4 g/dL (32.0-36.0); Mean Corpuscular Hemoglobin 33.5 pg (27.0-31.0); Mean Platelet Volume 8.2 fL (7.4-10.4); Platelet Count 78 thou/uL (130-400); RBC Distribution Width 13.3 % (11.5-14.5); White Blood Cell (WBC) Count 8.2 thou/uL (4.8-10.8)
[2017-07-19 02:40] LABS: FSP-Qualitative ABNORMAL (Normal); FSP-Semiquantitative >=5 & <20 mcg/mL (Less than 5)
[2017-07-19 02:43] LABS: Band 24 % (5-11); Eosinophils 1 % (0-10); Lymphocytes 1 % (21-51); MDiff Complete? YES; Macrocytosis MODERATE=16-30 cells (100X) (0-5/hpf); Metamyelocyte 5 % (0-0); Monocytes 2 % (0-10); Myelocyte 1 % (0-0); Neutrophil 66 % (42-75); PLT Morphology Comment Appears Decreased
[2017-07-19] MEDS: DEXTROSE 5% IV SCH ×3 (03:54→20:26)
[2017-07-19] MEDS: WATER IV SCH ×3 (03:54→20:26)
[2017-07-19] MEDS: SODIUM BICARBONATE IV SCH ×3 (03:54→20:26)
[2017-07-19] MEDS: CEFAZOLIN/Water 2 GM/20 ML SYRINGE SLOW IVP SCH ×2 (05:49→18:37)
[2017-07-19] MEDS: Potassium Chloride 40 MEQ in Premix Bag 1 BAG IVPB PRN (06:38)
[2017-07-19 07:20] LABS: Puncture Site RRA
[2017-07-19 07:21] LABS: Actual Bicarbonate (HCO3a) 14.7 mEq/L (22-26); Base Excess (BEa) -8.3 mEq/L (0 (+/-) 2.5); Hematocrit-ABG 27.3 % (36.0-47.0); Hemoglobin (Hb) 9.9 g/dL (12.0-16.0); O2 Tension (PaO2) 103.8 mmHg (80.0-100.0); pH, Arterial 7.42 (7.35-7.45)
--- NOTE | 2017-07-19 07:40 | OP ---
DATE OF PROCEDURE: 07/18/2017 PREOPERATIVE DIAGNOSES: 1. Possible necrotizing fasciitis with a definite strep abscess extending from her thumb distal phal anx, moved all the way into the proximal third of carpal tunnel with tenosynovitis here. 2. Systemic vascular instability, possibly secondary to this infection leading to possible septic sh ock or septic vascular collapse. FINDINGS: 1. Patient had a moderate amount of necrosis around the thumb, especially skin and fascia. 2. Poor circulation at the beginning of the procedure where she actually had pale digits on both navarro ds and then pallor going from white to purpuric to fito pallor at the right non-operative site as we ll as on the left. This necessitated heparinization during the procedure. TOURNIQUET TIME: None. ESTIMATED BLOOD LOSS: 200 mL. PROCEDURE: 1. Wide debridement of skin, muscle, fascia. 2. Radical tenosynovectomy flexor digitorum profundus and superficialis as well as some of the flexo rs pollicis longus more proximal to the wrist than with previous procedures. 3. Irrigation the wound. Debridement is as follows: We used instruments; A) [place] blade, tenotomy scissor, 11 blade knife, 9 liters of Pulsavac all warm normal saline and Adson's. Technique; excisional. Findings; minimal amount of necrosis, but definite necrosis to include dorsal thumb near the metacarpal, dorsal thumb at this interphalangeal joint and then palmar aspect of the carpal canal and finally there was necrosis seen. Specimens; four different sites thumb fascia, fore arm dorsal fascia; forearm carpal tunnel volar fascia and all sent for fascia samples to rule out nec rotizing fasciitis. 4. After debridement listed above would be application of a VAC dressing safely and effectively. 5. Application of VAC dressing, a total of approximate 70 square cm. DESCRIPTION OF PROCEDURE: After successful anesthesia listed above, prepped and draped. Again, as s oon as we had performed timeout and had finished the prep and drape, we noticed that she had pallor, she had a white left hand and ecchymosis at the tips of all the digits on the right side. This neces sitated us to provide full heparinization with 5000 unit bolus and then 750 units per hour. We then without a tourniquet began to widely debride the incision where around the thenar muscles the re appeared to be some necrosis, including fascia, muscle requiring debridement of this until there w as bleeding and healthy and then we turned our attention on the deep wound where we had performed lalo e flexor pollicis longus fascia connective tissue sampling via debridement using technique listed abo ve and then finished this just slightly proximal to the wrist. It was at this point that we had done all the debridements including the compartment areas using separate instruments from the wrist, fore arm and thumb. The thumb skin did not appear to initially response, so we then had a drip establishe d at 750 units per hour. We finished the debridement by debriding all the compartments including muscle, some tendon and there were no complications. We had excellent hemostasis control. By the time of our debridement on the entire mid lateral radial and ulnar aspect of the thumb had been completely debrided and the fascia w as debrided as was that over the index finger to the point where we could see intraoperative. Then, we placed a VAC dressing on the distal wound which was palmar beginning just proximal to the A1 pulle y, dorsal and palmar at the thumb, and then dorsal out. This then led to excellent fit for the VAC d ressing where we used the bridge between the dorsal radial thumb and the volar radial thumb. The sea l was excellent, and then we covered the proximal wounds with normal saline soaked gauze and a more standard dressing with Kerlix. A 4-0 4 inch wide long arm plaster was discovered and it was used and the patient left the operating room in this dressing with no evidence of anesthetic or operative com plications.
[2017-07-19] MEDS ORDERED: Dextrose 50% Abboject 50 ML SYRINGE SLOW IVP PRN (07:46)
[2017-07-19] MEDS ORDERED: Dextrose 5% in Water 1,000 ML IV PRN (07:46)
[2017-07-19 08:23] LABS: Lactic Acid 6.6 mmol/L (0.5-2.2)
--- NOTE | 2017-07-19 08:27 | PRG ---
DATE OF SERVICE: 07/19/2017 Thirty-five minutes critical care time. The patient was taken back to the operating room for debridement last night. Fortunately, she did no t require amputation. She remains on Levophed and vasopressin for refractory hypotension. She is ac tually arousable. PHYSICAL EXAMINATION: VITAL SIGNS: Temperature is 100.2, pulse 116, blood pressure 93/51 via A line in the right groin, O2 sat 97%. Total intake for the last 24 hours 1985, output 1605. HEENT: Pupils react. Sclerae anicteric. Oropharynx, endotracheal tube in place. NECK: No JVD. CHEST: Clear without wheezing. CARDIAC: S1, S2, tachycardic. ABDOMEN: Soft, nontender. EXTREMITIES: She has got better color in her fingers on the left hand than yesterday. LABORATORY DATA: Sodium 142, potassium 3.5, chloride 110, CO2 16, BUN 52, creatinine 1.7, glucose 12 6, AST 108, ALT 46. ABG; pH 7.42, pCO2 23, pO2 103 on SIMV rate 25, tidal volume 500, PEEP 5, pressu re support 10, FIO2 40%. PTT is 102.1, white blood cell count 8.2, hematocrit 31, platelet count 78. ASSESSMENT: 1. Necrotizing fasciitis of the left hand with development of compartment syndrome. 2. Status post fasciotomy. 3. Continued severe lactic acidosis with requirement of IV fluids with bicarbonate. 4. Acute respiratory failure requiring mechanical ventilation. 5. Mild renal dysfunction. 6. Low potassium and low magnesium. 7. Obesity. 8. Mild thrombocytopenia. PLAN: 1. Dr. Whalen has requested the patient be heparinized - we will have to watch her platelet count closely. If it drops too much then the heparin will need to be discontinued. 2. Continue antibiotics with cefazolin and clindamycin per Dr. Whitaker. 3. Continue vasopressin and Levophed. I will go ahead and add low dose hydrocortisone given refract ory sepsis. 4. She is continuing vitamin C and thiamine IV. 5. Start enteral tube feeds. 6. Adjust mechanical ventilation rate.
--- NOTE | 2017-07-19 08:32 | RAD ---
PORTABLE SUPINE CHEST: HISTORY: Dyspnea. CCU followup. COMPARISON: 07/18/17. FINDINGS/IMPRESSION: ET tube and NG tube remain in place. Central line is unchanged. There is mild cardiomegaly. Mild v ascular engorgement. Atelectasis and/or infiltrative changes seen in both lower lungs. Small bilate ral effusions. POS: [facility]
[2017-07-19] MEDS: Norepinephrine 8 MG in Sodium Chloride 0.9% 250 ML 250 ML IVPB SCH (09:28)
[2017-07-19] MEDS ORDERED: Amiodarone In Dextrose 200 ML IVPB SCH ×2 (11:30→12:00)
[2017-07-19] MEDS ORDERED: Amiodarone HCl 150 MG in Dextrose 5% in Water 100 ML IVPB SCH (12:00)
[2017-07-19] MEDS ORDERED: Amiodarone HCl 150 MG, Admixture Fee 1 EACH in Dextrose 5% in Water 100 ML IVPB SCH (12:00)
[2017-07-19] MEDS: fentaNYL Citrate/PF 2,000 MCG in Sodium Chloride 0.9% 60 ML IV SCH (12:39)
[2017-07-19] MEDS: Hydrocortisone Sod Succ/PF 100 mg/2 ml Vial IVP SCH ×2 (13:33→18:12)
[2017-07-19] MEDS: Insulin Regular 300 UNITS/3 ML VIAL SC PRN ×3 (13:47→20:58)
[2017-07-19] MEDS: Vasopressin 40 UNIT, Admixture Fee 1 EACH in Sodium Chloride 0.9% 100 ML IV SCH (13:55)
--- NOTE | 2017-07-19 15:19 | CON ---
DATE OF CONSULTATION: 07/19/2017 CARDIOLOGY CONSULTATION REASON FOR CONSULTATION: Atrial fibrillation with rapid ventricular response. HISTORY OF PRESENT ILLNESS: Ms. Grande is a 72-year-old white female who comes to the hospital for hughes nd infection. She was found to have what appears to be necrotizing fasciitis of the left hand. Ther e was compartment syndrome. She was taken emergently to the OR by Dr. Whalen, her hand surgeon, an d she was then admitted to the ICU with septic shock. She is currently sedated and intubated on 2 pr essors, vasopressin and Levophed. Overnight, she had small runs of atrial fibrillation, very brief a nd self-limiting. This morning, she went into atrial fibrillation and has sustained, currently remai ns in atrial fibrillation. Ms. Grande is sedated and intubated and is unable to provide any further h istory. Unclear whether she has had this before; however, her is in the room and she tells peterson bernal that he has heard of this before, but he is not aware of her having this. PAST MEDICAL HISTORY: 1. Hypertension. 2. Hyperlipidemia. 3. Breast cancer on the right breast with lymphadenectomy in the past, in remission apparently. OUTPATIENT MEDICATIONS: 1. CoQ10. 2. Potassium chloride. 3. Vitamin D3. 4. B complex. 5. Vitamin A. 6. Hydrochlorothiazide 25 mg a day. 7. Fenofibrate 160 mg b.i.d. 8. Hydralazine 10 mg p.o. b.i.d. 9. Toprol-XL 200 mg a day. ALLERGIES: CODEINE and PENICILLIN. SOCIAL HISTORY: No alcohol, tobacco or drugs. FAMILY HISTORY: Noncontributory. REVIEW OF SYSTEMS: Unobtainable as the patient is sedated and intubated. PHYSICAL EXAMINATION: VITAL SIGNS: Temperature 100.9, pulse currently 140, respiratory rate 23, satting 100% on 50% FIO2, blood pressure 94/59. GENERAL: Sedated and intubated. LUNGS: Clear to auscultation. CARDIOVASCULAR: Irregularly irregular, heart rate in the 140s. No murmurs. ABDOMEN: Soft, positive bowel sounds. EXTREMITIES: No edema. SKIN: Warm and dry. LABORATORY DATA: Laboratory work was reviewed. CBC was reviewed. Her platelets have dropped from 1 66 down to 78. Coags were reviewed. ABG was reviewed. Chemistries were reviewed. Her potassium hughes s been normal. Creatinine has gone up, currently at 1.73, GFR of 29. Lactic acid was greater than a ssay limit yesterday, but now at 6.6, calcium 6.6 as well. Magnesium was 1.2, but replaced at 1.7 th is morning, phosphorus of 4.5. Potassium was 3.5, it is also replaced, try to keep it above 4. BNP on admission was 266. UA showed positive nitrites on admission, 2+ bacteria. Strep pyogenes on blood cultures and bacterial culture of the thumb. ASSESSMENT AND PLAN: 1. Atrial fibrillation with rapid ventricular response: This may be related to several different th ings she may have. Most likely it is related to her acute illness and the use of Levophed for mainta ining her blood pressure. Agree with doing an amiodarone drip for now to try to rate control her and hopefully even just get her back into sinus. I would recommend against cardioversion at this time a s she is going in and out of atrial fibrillation, so we cardiovert her. Most likely she will be marianna g right back into it. Continue to treat underlying condition. 2. Thrombocytopenia, chronic of acute illness. I would not completely rule out heparin-induced thro mbocytopenia. If it continues to come down, we will get a platelet factor 4 although at this time no w it will take a few days to come back and we are going to look for any thrombotic events. 3. Septic shock per primary team. If there is no other contraindications for full anticoagulation except thrombocytopenia, would recomm end starting this and we will discuss with critical care. Thank you for letting us to participate in the care of your patient. We will follow.
--- NOTE | 2017-07-19 16:47 | EKG ---
Test Reason : Blood Pressure : / mmHG Vent. Rate : 143 BPM Atrial Rate : 182 BPM P-R Int : 000 ms QRS Dur : 080 ms QT Int : 292 ms P-R-T Axes : 000 -14 048 degrees QTc Int : 450 ms Atrial fibrillation with rapid ventricular response Low voltage QRS Nonspecific ST and T wave abnormality Abnormal ECG When compared with ECG of 17-JUL-2017 05:38, (Unconfirmed) Atrial fibrillation has replaced Sinus rhythm Nonspecific T wave abnormality, worse in Lateral leads Confirmed by DR. Adan SLADE (3) on 07/19/2017 4:47:48 PM Referred By: Marlene HARRIS Confirmed By:DR. Adan SLAED
--- NOTE | 2017-07-19 16:51 | EKG ---
Test Reason : Blood Pressure : / mmHG Vent. Rate : 135 BPM Atrial Rate : 135 BPM P-R Int : 124 ms QRS Dur : 086 ms QT Int : 334 ms P-R-T Axes : 092 -16 043 degrees QTc Int : 501 ms Sinus tachycardia Low voltage QRS Nonspecific ST and T wave abnormality Abnormal ECG When compared with ECG of 19-JUL-2017 11:17:34, (Unconfirmed) Manual comparison required Confirmed by DR. Adan SLADE (3) on 07/19/2017 4:50:49 PM Referred By: MOLLY Confirmed By:DR. Adan SLADE
[2017-07-19 17:38] LABS: Vancomycin, Trough 5.5 ug/mL
[2017-07-19] MEDS: Propofol 1,000 MG/100 ML VIAL IV PRN (18:24)
[2017-07-19] MEDS: Amiodarone HCl 450 MG, Admixture Fee 1 EACH in Dextrose 5% in Water 250 ML IVPB SCH (18:37)
[2017-07-19] MEDS: Pantoprazole 40 MG VIAL IVP SCH (20:26)
--- NOTE | 2017-07-19 20:36 | PRG ---
DATE OF SERVICE: 07/19/2017 SUBJECTIVE: Ms. Grande had a surgical procedure. Dr. Whalen did some debridement. The characteris tics of the tissue are having improved with less necrosis, most of the necrosis limited to the thumb as a matter of fact, she is wide awake and follows commands. PHYSICAL EXAMINATION: VITAL SIGNS: T-max was 100 today, the day before yesterday was 101. BP 135/58. She is still having wide swings in her blood pressure still requiring the maintenance of the A-line in the right groin. She has a left subclavian triple lumen catheter and in the left upper extremities, has a bulky dress ing which was not removed. HEENT: Ocular movements conjugate. She follows commands. Pupils are reactive. Oral cavity moist, orotracheal intubation. LUNGS: Symmetric air entry. HEART: S1, S2, regular rate. ABDOMEN: Soft, not distended, able to move extremities on command. LABORATORY DATA: White cell count 8.2, hemoglobin 10.4, MCV 100, platelets 78,000. Bands are down t o 24%. The creatinine is at 1.73, which is above the baseline, hopefully plateauing soon. Lactic ac id is 6.6, AST 108, ALT 46, alkaline phosphatase 25, albumin 2.2. Microbiology with the Strep pyogen es identified. Reports we have a chest x-ray with mild cardiomegaly, mild vascular engorgement and s ome infiltrative changes in both lower lungs. Small bilateral pleural effusions. ASSESSMENT AND PLAN: Necrotizing fasciitis secondary group A Streptococcus associated with toxic nat ck syndrome/sepsis. Wounds are improving. She probably will eventually lose the thumb at least a se gment of it. Currently on cefazolin and clindamycin and vasopressors. Overall, there has been impro vement and I foresee continuing improvement going forward.
--- NOTE | 2017-07-19 20:43 | PDOC.PN ---
- Subjective Encounter Start Date: 07/19/17 Encounter Start Time: 19:20 -: non-verbal Subjective: f/u for septic shock secondary to necrotizing fasciitis of L thumb region -: s/p I&D with wide debridement. Remains on IVF, Levophed and Vasopressin -: Receiving Clindamycin/Ancef with wound VAC. Remains on mech vent - Objective Resuscitation Status: Resuscitation Status FULL:Full Resuscitation MAR Reviewed: Yes Vital Signs & Weight: Vital Signs (12 hours) Pulse Resp BP Pulse Ox 07/19/17 18:18 93 22 H 100 07/19/17 18:00 22 H 07/19/17 16:00 22 H 07/19/17 14:48 150 H 61/58 L 07/19/17 14:46 155 H 25 H 99 07/19/17 14:00 22 H 07/19/17 12:00 22 H 07/19/17 10:45 100 22 H 99 07/19/17 10:41 123 H 99/53 L 07/19/17 10:00 22 H Weight Admit Weight 190 lb Weight 190 lb 4.143 oz Most Recent Monitor Data Heart Rate from ECG 93 NIBP 155/76 NIBP BP-Mean 94 Respiration from ECG 22 SpO2 100 I&O: 07/18/17 07/19/17 07/20/17 06:59 06:59 06:59 Intake Total 4087.4 1985.0 1842.6 Output Total 1775 1605 910 Balance 2312.4 380.0 932.6 Result Diagrams: 07/19/17 01:48 07/19/17 01:48 Additional Labs: Microbiology 07/17/17 15:10 Thumb - Wound Bacterial Culture - Preliminary 07/17/17 15:10 Thumb - Wound Streptococcus pyogenes 07/17/17 14:45 Thumb - Swab Bacterial Culture - Preliminary 07/17/17 14:45 Thumb - Swab Streptococcus pyogenes 07/17/17 14:33 Hand Bacterial Culture - Preliminary 07/17/17 14:33 Hand Streptococcus pyogenes 07/17/17 14:21 Thumb - Abscess Bacterial Culture - Preliminary 07/17/17 14:21 Thumb - Abscess Streptococcus pyogenes Laboratory Tests 07/17/17 07/17/17 07/17/17 05:55 05:55 05:55 Band Neuts % (Manual) Carbon Dioxide 15 L Creatinine 1.33 H Lactic Acid 7.1 H* Phosphorus Magnesium B-Natriuretic Peptide 366.8 H Vancomycin Trough 07/17/17 07/17/17 07/18/17 05:55 11:20 04:10 Band Neuts % (Manual) 52 H Carbon Dioxide 12 L Creatinine 1.67 H Lactic Acid 9.0 H* Phosphorus 5.7 H Magnesium 1.2 L B-Natriuretic Peptide Vancomycin Trough 07/18/17 07/18/17 07/18/17 04:10 08:27 22:54 Band Neuts % (Manual) 29 H 16 H Carbon Dioxide Creatinine Lactic Acid Greater than 13.4 H* Phosphorus Magnesium B-Natriuretic Peptide Vancomycin Trough 07/19/17 07/19/17 07/19/17 01:48 07:54 17:15 Band Neuts % (Manual) 24 H Carbon Dioxide Creatinine Lactic Acid 6.6 H* Phosphorus Magnesium B-Natriuretic Peptide Vancomycin Trough 5.5 Radiology Reviewed by me: Yes (PCXR - lines/tubes in place, bibasilar atelectasis) EKG Reviewed by me: Yes (Tele - A-fib RVR in low 100's) Phys Exam - Physical Examination opens eyes to name, nods, follows simple commands ETT in place HEENT: PERRLA, moist MMs, sclera anicteric, oral pharynx no lesions Neck: no nodes, no JVD, supple diminished in bases Respiratory: no wheezing, no rales, no rhonchi tachycardic S1, S2 Cardiovascular: no significant murmur, no rub, gallop, irregular Gastrointestinal: soft, non-tender, no distention, positive bowel sounds LUE with LON wrap, wound vac on L thumb region Musculoskeletal: pulses present, edema present Neurological: moves all 4 limbs eyes open, nods to questions Skin: no rash, normal turgor, cap refill <2 seconds Deviation from normal: Floyd with jesusita urine Dx/Plan (1) Necrotizing fasciitis due to Streptococcus pyogenes Code(s): M72.6 - NECROTIZING FASCIITIS; B95.0 - STREPTOCOCCUS, GROUP A, CAUSING DISEASES CLASSD ELSWHR Status: Acute Comment: Continue IV Ancef and Clindamycin, wound vac in place post-debridement (2) Septic shock Code(s): A41.9 - SEPSIS, UNSPECIFIED ORGANISM; R65.21 - SEVERE SEPSIS WITH SEPTIC SHOCK Status: Acute Comment: Continue Levophed and Vasopressin, IVF's , avoid antihypertensives, Hydrocortisone 50mg IV q6h (3) Atrial fibrillation with RVR Code(s): I48.91 - UNSPECIFIED ATRIAL FIBRILLATION Status: Acute Comment: Continue rate control measures with IV Amiodarone (4) HENRIETTA (acute kidney injury) Code(s): N17.9 - ACUTE KIDNEY FAILURE, UNSPECIFIED Status: Acute Comment: Avoid nephrotoxic meds and limit contrast exposure, serial creatinine, follow I/ O's and daily weight (5) Acute respiratory failure with hypoxia Code(s): J96.01 - ACUTE RESPIRATORY FAILURE WITH HYPOXIA Status: Acute Comment: Continue SIMV at 40%, Rate 22, am ABG, PCXR, continue aggressive pulm support - Plan continue antibiotics, outreach and education social worker, respiratory therapy, DVT proph w/SCDs Continue aggressive support -: Wean Vasopressin and Levophed as clinically indicated -: Continue Ancef and Clindamycin IV -: Pain control with Morphine Sulfate IV -: WCT with wound Vac * AM lab: CMP, CBC, Mg++, PO3 * 2D Echo pending
[2017-07-20] MEDS: Acetaminophen 1,000 MG in Premix Bag 1 BAG IVPB SCH ×6 (00:44→23:59)
[2017-07-20] MEDS: Clindamycin/D5W 900 MG in Premix Bag 1 BAG IVPB SCH ×5 (00:45→23:59)
[2017-07-20] MEDS: Hydrocortisone Sod Succ/PF 100 mg/2 ml Vial IVP SCH ×4 (00:46→19:45)
[2017-07-20] MEDS: fentaNYL Citrate/PF 2,000 MCG in Sodium Chloride 0.9% 60 ML IV SCH ×3 (01:20→23:56)
[2017-07-20] MEDS: Vasopressin 40 UNIT, Admixture Fee 1 EACH in Sodium Chloride 0.9% 100 ML IV SCH (05:17)
[2017-07-20] MEDS: CEFAZOLIN/Water 2 GM/20 ML SYRINGE SLOW IVP SCH ×2 (05:21→19:00)
[2017-07-20] MEDS: Insulin Regular 300 UNITS/3 ML VIAL SC PRN ×3 (05:31→19:38)
[2017-07-20 05:42] LABS: ALT (SGPT) 43 U/L (8-55); AST (SGOT) 105 U/L (5-34); Albumin 2.1 g/dL (3.4-4.8); Alkaline Phosphatase 48 U/L (40-150); Anion Gap 12 mmol/L (10-20); BUN (Urea Nitrogen) 47 mg/dL (9.8-20.1); Bilirubin, Total 1.7 mg/dL (0.2-1.2); Calc. Creatinine Clearance 77 mL/min (70-130); Calcium 6.9 mg/dL (7.8-10.44); Carbon Dioxide 25 mmol/L (23-31); Chloride 107 mmol/L (98-107); Estimated GFR-MDRD 62; Globulin 2.1 g/dL (2.4-3.5); Glucose 205 mg/dL (83-110); Magnesium 2.4 mg/dL (1.6-2.6); Phosphorus 1.9 mg/dL (2.3-4.7); Potassium 2.7 mmol/L (3.5-5.1); Protein, Total 4.2 g/dL (6.0-8.3); Sodium 141 mmol/L (136-145)
[2017-07-20 05:55] LABS: Band 26 % (5-11); Hemoglobin 9.9 g/dL (12.0-16.0); Hypochromia SLIGHT = 6-15 cells (100X) (0-5/hpf); Lymphocytes 10 % (21-51); MDiff Complete? YES; Mean Corpuscular HGB CONC 34.5 g/dL (32.0-36.0); Mean Corpuscular Hemoglobin 33.4 pg (27.0-31.0); Mean Platelet Volume 9.6 fL (7.4-10.4); Monocytes 2 % (0-10); Neutrophil 62 % (42-75); PLT Morphology Comment Appears Decreased; Platelet Count 69 thou/uL (130-400); RBC Distribution Width 13.1 % (11.5-14.5); Red Blood Cell (RBC) Count 2.96 mill/uL (4.20-5.40)
[2017-07-20] MEDS: Propofol 1,000 MG/100 ML VIAL IV PRN (05:56)
[2017-07-20] MEDS: WATER IV SCH ×2 (05:57→19:35)
[2017-07-20] MEDS: SODIUM BICARBONATE IV SCH ×2 (05:57→19:35)
[2017-07-20] MEDS: DEXTROSE 5% IV SCH ×2 (05:57→19:35)
[2017-07-20] MEDS: Potassium Chloride 40 MEQ in Premix Bag 1 BAG IVPB PRN (06:02)
[2017-07-20 07:11] LABS: pH, Arterial 7.56 (7.35-7.45)
[2017-07-20 07:12] LABS: Actual Bicarbonate (HCO3a) 20.8 mEq/L (22-26); Base Excess (BEa) -0.5 mEq/L (0 (+/-) 2.5); CO2 Tension 23.8 mmHg (35.0-45.0); Hematocrit-ABG 26.9 % (36.0-47.0); Hemoglobin (Hb) 9.7 g/dL (12.0-16.0)
[2017-07-20 07:13] LABS: Puncture Site ALINE
[2017-07-20] MEDS ORDERED: Fentanyl 100 MCG/2 ML VIAL ONE ×2 (07:17→09:36)
[2017-07-20] MEDS ORDERED: Midazolam HCl 2 mg/2 ml Vial ONE ×2 (07:17→09:36)
[2017-07-20] MEDS ORDERED: Bacitracin Zinc Ointment 30 gm TUBE ONE (07:28)
[2017-07-20] MEDS ORDERED: Neomycin-Polymyxin 1 ML AMP ONE (07:28)
[2017-07-20] MEDS ORDERED: Albumin 25% 25 GM/100 ML BOT IVPB SCH (08:06)
--- NOTE | 2017-07-20 08:10 | PDOC.PN ---
- Subjective Encounter Start Date: 07/20/17 Encounter Start Time: 08:08 -: non-verbal Ms. Grande is intubated and sedated. She is being prepared to go to surgery. - Objective Resuscitation Status: Resuscitation Status FULL:Full Resuscitation MAR Reviewed: Yes Vital Signs & Weight: Vital Signs (12 hours) Pulse Resp BP Pulse Ox 07/20/17 06:42 73 111/66 07/20/17 06:37 73 22 H 98 07/20/17 06:00 22 H 07/20/17 04:00 22 H 07/20/17 02:39 127 H 22 H 100 07/20/17 02:00 22 H 07/20/17 00:00 22 H 07/19/17 22:00 22 H 07/19/17 21:47 82 22 H 100 Weight Admit Weight 190 lb Weight 190 lb 4.143 oz Most Recent Monitor Data Heart Rate from ECG 74 NIBP 123/72 NIBP BP-Mean 87 Respiration from ECG 22 SpO2 100 I&O: 07/19/17 07/20/17 07/21/17 06:59 06:59 06:59 Intake Total 1985.0 4257.5 Output Total 1605 2185 Balance 380.0 2072.5 Result Diagrams: 07/20/17 05:05 07/20/17 05:05 Additional Labs: Accuchecks 07/20/17 07/19/17 05:06 20:58 POC Glucose 220 H 187 H Phys Exam - Physical Examination HEENT: PERRLA, sclera anicteric Respiratory: no wheezing, no rales, no rhonchi, clear to auscultation bilateral Cardiovascular: RRR, no significant murmur Gastrointestinal: soft, no distention, positive bowel sounds Musculoskeletal: edema present 2+ pitting edema L -thumb and index finger are cyanotic- wound vac in place Dx/Plan (1) Acute respiratory failure with hypoxia Code(s): J96.01 - ACUTE RESPIRATORY FAILURE WITH HYPOXIA Status: Acute Comment: Continue SIMV at 40%, Rate 22, am ABG, PCXR, continue aggressive pulm support (2) Atrial fibrillation with RVR Code(s): I48.91 - UNSPECIFIED ATRIAL FIBRILLATION Status: Acute Comment: Continue rate control measures with IV Amiodarone (3) Necrotizing fasciitis due to Streptococcus pyogenes Code(s): M72.6 - NECROTIZING FASCIITIS; B95.0 - STREPTOCOCCUS, GROUP A, CAUSING DISEASES CLASSD ELSWHR Status: Acute Comment: Continue IV Ancef and Clindamycin, wound vac in place post-debridement (4) Septic shock Code(s): A41.9 - SEPSIS, UNSPECIFIED ORGANISM; R65.21 - SEVERE SEPSIS WITH SEPTIC SHOCK Status: Acute Comment: Continue Levophed and Vasopressin, IVF's , avoid antihypertensives, Hydrocortisone 50mg IV q6h (5) Thrombocytopenia Code(s): D69.6 - THROMBOCYTOPENIA, UNSPECIFIED Status: Acute - Plan * Necrotizing fasciitis of the Left thumb with severe sepsis- She has had debridement of the thumb, and current antibiotics are Cefazolin and Vancomycin * She is go to surgery today for further debridement of the finger * AFIB with RVR- she is now on an Amiodarone drip * Thrombocytopenia- will monitor, this may be due to sepsis, must also consider HIT .
--- NOTE | 2017-07-20 09:01 | RAD ---
PORTABLE SUPINE CHEST: Date: 07/20/17 HISTORY: Dyspnea. CCU follow-up on ventilation. COMPARISON: 07/19/17. FINDINGS/IMPRESSION: ET tube and NG tube are unchanged. Central line unchanged. Bilateral effusions and bibasilar atelecta sis and/or infiltrates. Linear atelectasis in both lower lungs. Mild vascular engorgement. No significant change from yesterday. POS: [facility]
[2017-07-20] MEDS ORDERED: Propofol 1,000 MG/100 ML VIAL IV ONE (09:36)
[2017-07-20] MEDS ORDERED: Rocuronium Bromide 50 MG/5 ML VIAL ONE (10:08)
--- NOTE | 2017-07-20 11:23 | PDOC.CTH ---
Cardiology Progress Note - Subjective She had debridement of her hand again this morning. She was in sinus rhythm before surgery, currently she is back from OR and is now in afib RVR and goes in and out of sinus. She remians intubated. - Objective Vital Signs Temp Pulse Resp BP Pulse Ox 07/20/17 10:38 12 07/20/17 10:26 110 H 144/74 H 07/20/17 10:25 109 H 12 99 07/20/17 08:00 98.2 F 07/20/17 06:42 73 111/66 07/20/17 06:37 73 22 H 98 07/20/17 06:00 22 H 07/20/17 04:00 22 H 07/20/17 02:39 127 H 22 H 100 07/20/17 02:00 22 H 07/20/17 00:00 22 H Admit Weight 190 lb Weight 205 lb 14.588 oz 07/19/17 07/20/17 07/21/17 06:59 06:59 06:59 Intake Total 1985.0 4257.5 100 Output Total 1605 2185 75 Balance 380.0 2072.5 25 - Physical Examination General/Neuro: other: (Intubated. ) Neck: no JVD present Lungs: unlabored respirations Heart: other: (Irregular) Abdomen: NT/ND Extremities: + edema B (1+) - Telemetry Telemetry Rhythm: NSR - Labs Result Diagrams: 07/20/17 05:05 07/20/17 05:05 Troponin/CKMB CK-MB (CK-2) 3.2 ng/mL (0-6.6) 07/17/17 05:55 Troponin I Less than 0.010 ng/mL (< 0.028) 07/17/17 05:55 - Assessment/Plan 1. Afib RVR 2. Septic shoick 3. Strep bacteremia 4. Hand infection 5. Hypokalemia PLAN: - Continue Amiodarone drip. - Will give one dose of digoxin IV. - Replace K aggressively to above 4.0 - Echo pending.
[2017-07-20 11:30] LABS: Potassium 2.8 mmol/L (3.5-5.1)
[2017-07-20] MEDS ORDERED: Digoxin 0.5 MG/2 ML AMP SLOW IVP SCH ×2 (11:30→15:15)
[2017-07-20] MEDS: Morphine 4 MG/ML VIAL SLOW IVP PRN (11:52)
[2017-07-20 12:27] LABS: Actual Bicarbonate (HCO3a) 24.1 mEq/L (22-26); CO2 Tension 38.7 mmHg (35.0-45.0); pH, Arterial 7.41 (7.35-7.45)
[2017-07-20 12:28] LABS: ALV-art Gradient 77.265 (0-20); Analyzer IN Cardio ER; Base Excess (BEa) -0.3 mEq/L (0 (+/-) 2.5); Calcium, Ionized 1.1 mmol/L (1.12-1.30); Hematocrit-ABG 42.6 % (36.0-47.0); Hemoglobin (Hb) 10.9 g/dL (12.0-16.0); Puncture Site L.R.
[2017-07-20] MEDS: Potassium Chloride 20 MEQ in Premix Bag 1 BAG IVPB SCH ×4 (13:27→19:36)
--- NOTE | 2017-07-20 15:29 | PRG ---
DATE OF SERVICE: 07/20/2017 SUBJECTIVE: She is to go down to surgery for debridement of her left hand wound with IVAC in place. OBJECTIVE: VITAL SIGNS: Pulse is 80, blood pressure is 121/87, sats are 100%, respiration is 20. She is sedate d. I's and O's are 4257 in and 2185 out. Maximum temperature is 100.8. CHEST: Revealed decreased breath sounds without any wheezing. CARDIAC: Normal S1, S2. No gallops. ABDOMEN: Soft. NEUROLOGICAL: She is sedated. EXTREMITIES: No edema. LABORATORY DATA: White count 10,000, hemoglobin and hematocrit 10.9 and 28, platelet count is decrea sed to 69, still got big bandemia 62 segs and 26 bands. PO2 is 134, pCO2 40%, 500. Creatinine is normal. BUN is 47, potassium 2.7. Phosphorous 1.9, calcium 6.9, albumin is low. Streptococcus pyogenes on all blood cultures. IMPRESSION: 1. Streptococcus pyogenes sepsis. 2. Supraventricular tachycardia. 3. Left hand gangrenous changes. 4. Status post fasciotomy, now going for additional wound debridement. 5. Renal failure, improved. 7. Thrombocytopenia. PLAN: Continue vent support, at this stage, not weanable. Continue amiodarone for supraventricular tachycardia. Continue nutrition, PT. She is on clindamycin, Ancef, and hydrocortisone which I would continue. PT. One-half hour critical care time.
[2017-07-20] MEDS ORDERED: PROPOFOL 200 MG/20 ML VIAL ONE (20:05)
[2017-07-20] MEDS: Norepinephrine 8 MG in Sodium Chloride 0.9% 250 ML 250 ML IVPB SCH (20:21)
[2017-07-20] MEDS: Lorazepam 2 MG/ML VIAL SLOW IVP PRN (20:34)
[2017-07-20] MEDS: Pantoprazole 40 MG VIAL IVP SCH (22:54)
[2017-07-21] MEDS: SODIUM BICARBONATE IV SCH ×3 (04:30→19:41)
[2017-07-21] MEDS: WATER IV SCH ×3 (04:30→19:41)
[2017-07-21] MEDS: DEXTROSE 5% IV SCH ×3 (04:30→19:41)
[2017-07-21] MEDS: Lorazepam 2 MG/ML VIAL SLOW IVP PRN (04:35)
[2017-07-21 05:25] LABS: ALT (SGPT) 54 U/L (8-55); AST (SGOT) 135 U/L (5-34); Albumin 2.3 g/dL (3.4-4.8); Alkaline Phosphatase 71 U/L (40-150); Anion Gap 6 mmol/L (10-20); BUN (Urea Nitrogen) 46 mg/dL (9.8-20.1); Bilirubin, Total 1.8 mg/dL (0.2-1.2); Calc. Creatinine Clearance 86 mL/min (70-130); Calcium 7.1 mg/dL (7.8-10.44); Carbon Dioxide 34 mmol/L (23-31); Chloride 102 mmol/L (98-107); Estimated GFR-MDRD 64; Globulin 2.2 g/dL (2.4-3.5); Glucose 167 mg/dL (83-110); Phosphorus 1.3 mg/dL (2.3-4.7); Potassium 3.7 mmol/L (3.5-5.1); Protein, Total 4.5 g/dL (6.0-8.3); Sodium 138 mmol/L (136-145)
[2017-07-21 05:42] LABS: Band 10 % (5-11); Hemoglobin 10.5 g/dL (12.0-16.0); Lymphocytes 10 % (21-51); MDiff Complete? YES; Mean Corpuscular HGB CONC 33.9 g/dL (32.0-36.0); Mean Corpuscular Hemoglobin 33.1 pg (27.0-31.0); Mean Corpuscular Volume 97.6 fl (81.0-99.0); Mean Platelet Volume 9.7 fL (7.4-10.4); Metamyelocyte 1 % (0-0); Monocytes 7 % (0-10); Neutrophil 69 % (42-75); Nucleated RBC 1 % (0); PLT Morphology Comment Appears Decreased; Platelet Count 68 thou/uL (130-400); RBC Distribution Width 13.3 % (11.5-14.5); Reactive Lymphocytes 3 % (0-10); Red Blood Cell (RBC) Count 3.18 mill/uL (4.20-5.40); White Blood Cell (WBC) Count 17.9 thou/uL (4.8-10.8)
[2017-07-21] MEDS: Hydrocortisone Sod Succ/PF 100 mg/2 ml Vial IVP SCH ×4 (06:10→19:42)
[2017-07-21] MEDS: Clindamycin/D5W 900 MG in Premix Bag 1 BAG IVPB SCH ×3 (06:10→19:37)
[2017-07-21] MEDS: CEFAZOLIN/Water 2 GM/20 ML SYRINGE SLOW IVP SCH ×2 (06:12→19:53)
[2017-07-21] MEDS: Insulin Regular 300 UNITS/3 ML VIAL SC PRN (06:19)
[2017-07-21 07:08] LABS: Actual Bicarbonate (HCO3a) 31.5 mEq/L (22-26); Base Excess (BEa) 7.1 mEq/L (0 (+/-) 2.5); CO2 Tension 44.1 mmHg (35.0-45.0); Hematocrit-ABG 29.1 % (36.0-47.0); Hemoglobin (Hb) 9.9 g/dL (12.0-16.0); O2 Tension (PaO2) 124.7 mmHg (80.0-100.0); pH, Arterial 7.47 (7.35-7.45)
[2017-07-21 07:09] LABS: ALV-art Gradient 105.375 (0-20); Puncture Site ALINE
[2017-07-21] MEDS ORDERED: Furosemide 20 MG/2 ML VIAL SLOW IVP SCH (09:00)
--- NOTE | 2017-07-21 09:27 | PRG ---
DATE OF SERVICE: 07/21/2017 SUBJECTIVE: This morning, awake and responsive. Generalized swelling. OBJECTIVE: VITAL SIGNS: Pulse 159, atrial fibrillation, on amiodarone; blood pressure 157/ 83 on the cuff and 122/76 on the A-line, A-line had been for several days and is going to be discontinued this morning. Echo shows a decreased EF. I's and O 's are 4257 in and 2185 out. CHEST: Decreased breath sounds without any wheezing. CARDIAC: Atrial fibrillation. ABDOMEN: Soft. NEUROLOGIC: She is awake, responsive, 2+ edema. LABORATORY DATA: White count 17,000; H and H 10 and 31; platelet count is 68, low. PO2 is 124, [id number] ph 7.43_. Vent being adjusted. Her electrolytes are normal. BUN is 46. Albumin is low at 2.3. ASSESSMENT: 1. Streptococcus ___ sepsis, left thumb gangrene. 2. Thrombocytopenia. 3. Poor nutrition status. 4. Supraventricular tachycardia. 5. Congestive heart failure. PLAN: Continue steroids. Started on low-dose diuretics. Continue antibiotics. PT was initiated. We will start nutrition. Start weaning the vent. Discontinue A-line. [id number] critical care time. MTDD
--- NOTE | 2017-07-21 10:22 | RAD ---
CHEST 1 VIEW: Date: 07/21/17 HISTORY: Dyspnea. Follow-up. COMPARISON: 07/20/17. FINDINGS: Cardiac silhouette magnified and enlarged. Pulmonary vasculature engorged. Patchy areas of infiltrate throughout each lung and linear atelectasis right lower lobe stable. Mediastinum midline. Lines and tubes appear unchanged in position. monitoring coordinator leads overlie the chest. IMPRESSION: Patchy infiltrates and other findings are stable. POS: [facility]
--- NOTE | 2017-07-21 11:01 | PDOC.PN ---
- Subjective Encounter Start Date: 07/21/17 Encounter Start Time: 10:59 -: non-verbal Ms. Grande was seen today in follow-up of severe Strep sepsis. She is intubated, and sedated. - Objective Resuscitation Status: Resuscitation Status FULL:Full Resuscitation Vital Signs & Weight: Vital Signs (12 hours) Temp Pulse Resp BP Pulse Ox 07/21/17 10:28 133 H 103/65 07/21/17 10:22 134 H 12 96 07/21/17 06:30 100 105/60 07/21/17 06:29 101 H 12 96 07/21/17 06:00 12 07/21/17 04:00 98.8 F 12 07/21/17 03:33 102 H 16 94 L 07/21/17 02:00 12 07/21/17 00:00 97.9 F 12 Weight Admit Weight 190 lb Weight 207 lb 10.807 oz Most Recent Monitor Data Heart Rate from ECG 99 NIBP 114/73 NIBP BP-Mean 98 Respiration from ECG 12 SpO2 96 I&O: 07/20/17 07/21/17 07/22/17 06:59 06:59 06:59 Intake Total 4257.5 2527.3 Output Total 2185 1957 35 Balance 2072.5 570.3 -35 Result Diagrams: 07/21/17 04:45 07/21/17 04:45 Additional Labs: Accuchecks 07/20/17 07/20/17 19:37 13:20 POC Glucose 212 H 255 H Phys Exam - Physical Examination HEENT: PERRLA, sclera anicteric Respiratory: no wheezing, no rales, no rhonchi, clear to auscultation bilateral Cardiovascular: RRR, no significant murmur, no rub Gastrointestinal: soft, positive bowel sounds Musculoskeletal: edema present trace pedal edema Dx/Plan (1) Acute respiratory failure with hypoxia Code(s): J96.01 - ACUTE RESPIRATORY FAILURE WITH HYPOXIA Status: Acute Comment: Continue SIMV at 40%, Rate 22, am ABG, PCXR, continue aggressive pulm support (2) Atrial fibrillation with RVR Code(s): I48.91 - UNSPECIFIED ATRIAL FIBRILLATION Status: Acute Comment: Continue rate control measures with IV Amiodarone (3) Necrotizing fasciitis due to Streptococcus pyogenes Code(s): M72.6 - NECROTIZING FASCIITIS; B95.0 - STREPTOCOCCUS, GROUP A, CAUSING DISEASES CLASSD ELSWHR Status: Acute Comment: Continue IV Ancef and Clindamycin, wound vac in place post-debridement (4) Septic shock Code(s): A41.9 - SEPSIS, UNSPECIFIED ORGANISM; R65.21 - SEVERE SEPSIS WITH SEPTIC SHOCK Status: Acute Comment: Continue Levophed and Vasopressin, IVF's , avoid antihypertensives, Hydrocortisone 50mg IV q6h (5) Thrombocytopenia Code(s): D69.6 - THROMBOCYTOPENIA, UNSPECIFIED Status: Acute - Plan * Necrotizing Fasciitis of the left thumb with severe sepsis- Continue IV Cefazolin, and Clindamycin * Continue local woundcare and debridement as needed. * AFIB- she has been in and out of AFIB with RVR- continue Amiodarone drip, and Digoxin * Echo results noted * Nutritional support with tube feeing * Acute respiratory failure- she continues to require ventilator support- continue as per Contracting Support Specialist * Thrombocytopenia- persists hopefully she has reached her nash. .
[2017-07-21 11:06] LABS: Band 14 % (5-11); Lymphocytes 10 % (21-51); MDiff Complete? YES; Mean Corpuscular Hemoglobin 33.3 pg (27.0-31.0); Mean Corpuscular Volume 97.9 fl (81.0-99.0); Mean Platelet Volume 9.5 fL (7.4-10.4); Monocytes 3 % (0-10); Neutrophil 70 % (42-75); PLT Morphology Comment Appears Decreased; Platelet Count 64 thou/uL (130-400); RBC Distribution Width 13.4 % (11.5-14.5); RBC Morphology Normal; Reactive Lymphocytes 3 % (0-10); Red Blood Cell (RBC) Count 2.99 mill/uL (4.20-5.40); Toxic Granulation SLIGHT; White Blood Cell (WBC) Count 16.9 thou/uL (4.8-10.8)
--- NOTE | 2017-07-21 12:03 | PDOC.CTH ---
Cardiology Progress Note - Subjective She remains sedated intubated. - Objective Vital Signs Temp Pulse Resp BP Pulse Ox 07/21/17 10:28 133 H 103/65 07/21/17 10:22 134 H 12 96 07/21/17 06:30 100 105/60 07/21/17 06:29 101 H 12 96 07/21/17 06:00 12 07/21/17 04:00 98.8 F 12 07/21/17 03:33 102 H 16 94 L 07/21/17 02:00 12 Admit Weight 190 lb Weight 207 lb 10.807 oz 07/20/17 07/21/17 07/22/17 06:59 06:59 06:59 Intake Total 4257.5 2527.3 Output Total 2185 1957 35 Balance 2072.5 570.3 -35 - Physical Examination General/Neuro: other: (sedtaed, intubated. ) Neck: no JVD present Lungs: CTA, unlabored respirations Heart: other: (Irregular HR 140's. ) Abdomen: NT/ND Extremities: + edema B (1+) - Telemetry Telemetry Rhythm: Afib HR 140's. - Labs Result Diagrams: 07/21/17 10:17 07/21/17 04:45 Troponin/CKMB CK-MB (CK-2) 3.2 ng/mL (0-6.6) 07/17/17 05:55 Troponin I Less than 0.010 ng/mL (< 0.028) 07/17/17 05:55 - Assessment/Plan 1. Afib RVR 2. Septic shock 3. Strep pyogenes bacteremia 4. Hand infection, primary source 5. Hypokalemia, improved. 6. Mild LV dysfunction likely due to rapid afib. EF 40-45% PLAN: - Continue Amiodarone drip. - One dose digoxin IV. - Replace K aggressively to above 4.0 - Will start low dose metoprolol. - Will discuss with surgery about starting full anticoagulation for stroke prophylaxis. - She has been in and out of afib in the last 24 to 48 hours so a DCCV would not be effective unless hemodynamically unstable.
[2017-07-21] MEDS ORDERED: Digoxin 0.5 MG/2 ML AMP SLOW IVP SCH (12:15)
[2017-07-21] MEDS: Metoprolol Tartrate 5 MG/5 ML VIAL IVP SCH ×2 (12:36→19:46)
[2017-07-21] MEDS ORDERED: Furosemide 40 MG/4 ML VIAL ONE (12:38)
[2017-07-21 12:57] LABS: Anion Gap 9 mmol/L (10-20); BUN (Urea Nitrogen) 47 mg/dL (9.8-20.1); Calc. Creatinine Clearance 80 mL/min (70-130); Calcium 7.1 mg/dL (7.8-10.44); Carbon Dioxide 35 mmol/L (23-31); Chloride 100 mmol/L (98-107); Estimated GFR-MDRD 59; Glucose 148 mg/dL (83-110); Potassium 3.6 mmol/L (3.5-5.1); Sodium 140 mmol/L (136-145)
[2017-07-21] MEDS ORDERED: Fentanyl 100 MCG/2 ML VIAL ONE (13:26)
[2017-07-21] MEDS ORDERED: Propofol 1,000 MG/100 ML VIAL IV ONE (13:29)
[2017-07-21] MEDS ORDERED: Bacitracin Zinc Ointment 30 gm TUBE ONE (13:57)
[2017-07-21] MEDS ORDERED: Sodium Chloride 0.9% 30 ML ONE (13:57)
[2017-07-21] MEDS ORDERED: Bupivacaine/Epinephrine 0.25% 30 ML VIAL ONE (13:57)
[2017-07-21] MEDS ORDERED: Bupivacaine PF 0.5% 30 ML VIAL ONE (13:59)
[2017-07-21] MEDS ORDERED: Tobramycin 80 MG/2 ML VIAL ONE (14:36)
[2017-07-21] MEDS ORDERED: Tobramycin Sulfate 1.2 GM VIAL ONE (14:36)
[2017-07-21] MEDS: Amiodarone HCl 450 MG, Admixture Fee 1 EACH in Dextrose 5% in Water 250 ML IVPB SCH (18:25)
[2017-07-21] MEDS ORDERED: Esmolol 100 MG/10 ML VIAL ONE (20:13)
[2017-07-21] MEDS: Pantoprazole 40 MG VIAL IVP SCH (21:11)
[2017-07-22] MEDS: Clindamycin/D5W 900 MG in Premix Bag 1 BAG IVPB SCH ×5 (00:24→23:09)
[2017-07-22] MEDS: Hydrocortisone Sod Succ/PF 100 mg/2 ml Vial IVP SCH ×5 (00:24→23:09)
[2017-07-22] MEDS: Lorazepam 2 MG/ML VIAL SLOW IVP PRN ×2 (00:24→23:10)
[2017-07-22] MEDS: Metoprolol Tartrate 5 MG/5 ML VIAL IVP SCH ×5 (00:27→23:11)
[2017-07-22] MEDS: Insulin Regular 300 UNITS/3 ML VIAL SC PRN ×5 (00:33→20:36)
[2017-07-22] MEDS: SODIUM BICARBONATE IV SCH (03:23)
[2017-07-22] MEDS: WATER IV SCH (03:23)
[2017-07-22] MEDS: DEXTROSE 5% IV SCH (03:23)
[2017-07-22 04:57] LABS: ALT (SGPT) 50 U/L (8-55); AST (SGOT) 110 U/L (5-34); Albumin 2.3 g/dL (3.4-4.8); Alkaline Phosphatase 87 U/L (40-150); BUN (Urea Nitrogen) 38 mg/dL (9.8-20.1); Bilirubin, Total 1.3 mg/dL (0.2-1.2); Calc. Creatinine Clearance 95 mL/min (70-130); Calcium 7.2 mg/dL (7.8-10.44); Chloride 97 mmol/L (98-107); Estimated GFR-MDRD 71; Globulin 2.2 g/dL (2.4-3.5); Glucose 210 mg/dL (83-110); Phosphorus 1.8 mg/dL (2.3-4.7); Potassium 3.8 mmol/L (3.5-5.1); Protein, Total 4.5 g/dL (6.0-8.3); Sodium 141 mmol/L (136-145)
[2017-07-22 05:00] LABS: Anion Gap 14 mmol/L (10-20); Carbon Dioxide 34 mmol/L (23-31)
[2017-07-22 05:10] LABS: Band 8 % (5-11); Hemoglobin 9.9 g/dL (12.0-16.0); Lymphocytes 16 % (21-51); MDiff Complete? YES; Mean Corpuscular HGB CONC 34.4 g/dL (32.0-36.0); Mean Corpuscular Hemoglobin 33.7 pg (27.0-31.0); Mean Platelet Volume 10.2 fL (7.4-10.4); Metamyelocyte 1 % (0-0); Monocytes 4 % (0-10); Myelocyte 2 % (0-0); Neutrophil 69 % (42-75); PLT Morphology Comment Appears Decreased; Platelet Count 70 thou/uL (130-400); RBC Distribution Width 13.2 % (11.5-14.5); Red Blood Cell (RBC) Count 2.94 mill/uL (4.20-5.40); White Blood Cell (WBC) Count 17.2 thou/uL (4.8-10.8)
[2017-07-22] MEDS: fentaNYL Citrate/PF 2,000 MCG in Sodium Chloride 0.9% 60 ML IV SCH (05:26)
[2017-07-22] MEDS: CEFAZOLIN/Water 2 GM/20 ML SYRINGE SLOW IVP SCH ×2 (06:21→19:12)
[2017-07-22] MEDS ORDERED: Furosemide 20 MG/2 ML VIAL SLOW IVP SCH (07:43)
--- NOTE | 2017-07-22 08:10 | PRG ---
DATE OF SERVICE: 07/22/2017 Thirty-five minutes critical care time. The patient remains intubated on mechanical ventilation. She will wake up and look around. PHYSICAL EXAMINATION: VITAL SIGNS: Temperature is 98.5, pulse 86, blood pressure 147/80. She is having runs of atrial fi brillation with a heart rate of 140. Currently on amiodarone drip. Total intake for the last 24 elaina rs 3573, output 1825. Weight 214 pounds. HEENT: She has periorbital edema. NECK: No JVD. LUNGS: Diminished breath sounds in the bases. CARDIOVASCULAR: S1, S2, irregular, irregular. ABDOMEN: Soft, nontender. EXTREMITIES: She has a bandage over her left arm and has partially amputated left thumb. LABORATORY DATA: Sodium 141, potassium 3.8, chloride 97, CO2 34, BUN 30, creatinine 0.8, glucose 210 . ABG pending. White blood cell count 17.2, hematocrit 28.9, platelet count 70. ASSESSMENT: 1. Necrotizing fasciitis from group A strep. 2. Acute respiratory failure requiring mechanical ventilation. 3. Metabolic alkalosis from exogenous bicarbonate. 4. Mild thrombocytopenia likely from sepsis. PLAN: 1. Start weaning ventilator more aggressively. 2. Stop bicarbonate drip. 3. Diurese. 4. Consider starting Lovenox once platelet count gets to about 100.
[2017-07-22] MEDS: Furosemide 40 MG/4 ML VIAL SLOW IVP SCH (08:49)
--- NOTE | 2017-07-22 08:51 | RAD ---
PORTABLE AP CHEST: Date: 07/22/17 HISTORY: On ventilator. Follow-up evaluation. COMPARISON: 07/21/17. FINDINGS: Endotracheal tube, nasogastric tube, and left subclavian central venous catheter remain in place and unchanged in position. Vascular calcifications are seen in an ectatic thoracic aorta. Again noted are patchy interstitial and alveolar opacities within the lungs bilaterally, greater in the perihilar re gion, as well as at the left lung base. There is slight blunting of the right lateral costophrenic an gle which may represent a tiny right pleural effusion. Cardiac silhouette is magnified by projection. Surgical clips again overlie the right hilar region. No other interval change. IMPRESSION: 1. Patchy interstitial and alveolar opacities predominantly within the perihilar regions bilaterally . Findings could be related to either pulmonary edema or infectious process. Follow-up to resolution is recommended. 2. Tiny right pleural effusion. 3. Lines and tubes stable in position. POS: [facility]
--- NOTE | 2017-07-22 09:07 | HP ---
DATE OF ADMISSION: 07/17/2017. TIME OF SERVICE: 1300. PRIMARY CARE PHYSICIAN: Out of town, Dr. Hanna. I believe there in [place]. CHIEF COMPLAINT: Transfer for sepsis. HISTORY OF PRESENT ILLNESS: Ms. Grande is a 72-year-old white female with history of hypertension, hy perlipidemia, and breast cancer in the past, who presents from an outside Emergency Department for ev aluation of increased arm swelling and discoloration. Patient was in normal state of health. About 7 days prior to admission, she developed a laceration t o her left thumb. She does initially did well. She was able to continue cooking (this occurred whil e she was cutting chery) and worked out in the yard a couple of days later. About 24 hours prior to admission, she started developing increased swelling to her hand and forearm that progressed and had increased pain. She developed some blister formation and purplish discolorat ion today, so presented to the [facility] for evaluation. There, she was found to have fairly normal blood pressure and laboratory evaluation was fairly normal except for a marked bandemia. Due to increased swelling and erythema, there was concern of compartm ent syndrome. CT angiogram was obtained that showed no hemodynamically significant compromise and th e patient was transferred here for further workup. Blood pressure en route to the initial emergency department was 110/66, but while there in the emerge ncy department, she continued to have some vomiting and diarrhea. She received vancomycin and had to be placed on Levophed after 2 liters of IV fluids and still left with a systolic blood pressure in t he 80s. Initial white blood cell count was 2.2 with 8% bands. She was transferred here and repeat CBC showed a white count of 4.3 with 52% bands and 33% granulocytes. Her creatinine initially elevated at 1.45 and was down to 1.33. She remained hypokalemic and hypocapnic. We were subsequently called for adm ission. I have notified Pulmonary and Critical Care and requested a Hand Surgery urgent evaluation. On arrival to the floor after acceptance, the patient is remaining on Levophed and had to be increase d from 12-15 mcg, she has got marked discoloration and cyanosis of her left palmar thumb and is awake and alert, but obviously not feeling well. PAST MEDICAL HISTORY: 1. Hypertension 2. Hyperlipidemia. 3. Right-sided breast cancer. PAST SURGICAL HISTORY: Includes, 1. Right arm tumor removal. 2. Lymphadenectomy for breast cancer. 3. Left subclavian central venous catheter placement today in the outside ER. HOME MEDICATIONS: 1. Metoprolol 200 mg daily, unsure whether it is tartrate or succinate. 2. Hydralazine 10 mg p.o. b.i.d. 3. Hydrochlorothiazide 25 mg p.o. b.i.d. 4. Fenofibrate 50 mg daily. ALLERGIES: PENICILLIN, CODEINE, reaction is currently unknown. Supposedly, she had a reaction to Augmentin many years ago, but does not have been retried. FAMILY HISTORY: Negative for clotting or bleeding disorder, no immune dysfunction. SOCIAL HISTORY: Negative for habits x3. She is . Her accompanies her, is at the bed side and was updated. She does wish to be full code. Her is her surrogate decision maker. REVIEW OF SYSTEMS: A 10-point review of systems was performed and negative for all other systems exc ept stated as per HPI. PHYSICAL EXAMINATION: VITAL SIGNS: Temperature 98.2, pulse 111, blood pressure 133/92, respiratory rate 24, satting 91% on room air. GENERAL: She is awake. She is alert. She is oriented x3. She is an obese white female who is in m oderate distress. HEENT: Normocephalic, atraumatic. Pupils are equal, round, and reactive to light bilaterally. Muco us membranes are moist. There is no visible lesion or thrush. NECK: Supple. There is no lymphadenopathy, JVD or thyromegaly. Normal carotid upstrokes. There ar e no bruits. LUNGS: Clear to auscultation bilaterally. No wheezes, no rales, no rhonchi. CARDIOVASCULAR: She is tachycardic, but regular. I cannot appreciate murmurs. ABDOMEN: Obese, it is nontender, nondistended with good bowel sounds. She has no rebound, rigidity or guarding. There is good bowel sounds present in all 4 quadrants. EXTREMITIES: Right upper and bilateral lower extremities showed no cyanosis. She has trace pedal ed meli. Left upper extremity has marked edema of the palmar hand with possible fluctuance over the then ar eminence and edema of the dorsal hand. She has got bullous changes to the skin and some ecchymosi s present. One of the bullae does appear to have some hemorrhage in it. She has got what looks like cyanosis and lack of sensation to the palmar left thumb and is cool to touch. She has erysipelas ex tending from the wrist up to the elbow region. It is nontender. There is no crepitus and no fluctua nce. SKIN: Otherwise warm, moist, well perfused. She has no other rashes or lesions. NEUROLOGIC: Shows cranial nerves II through XII to be grossly intact. She has no other focal neurol ogic deficits. MUSCULOSKELETAL: Otherwise negative for large joints. There is no obvious inflammation. No palpabl e effusions. She has good range of motion and 5/5 strength. LABORATORY DATA: Labs here showed sodium of 144, potassium 3.0, down from 3.1, chloride 113, bicarbo javier 15, down from 16, BUN of 28, creatinine 1.33, improved from 1.45 and glucose of 122 with normal calcium. Her liver functions are fairly normal except for an AST of 48. CBC showed a white count of 4.3, which is double from a presentation to the outside Emergency Department, hemoglobin is 12.7, he matocrit of 38.0, platelet count is 166,000, 33% granulocytes, 52% bands, and 6% lymphocytes. Lactic acid initially was 7.1 with a repeat of 9, CK was elevated at 299, CK-MB normal at 3.2. Tropo davina I is undetectable less than 0.010. BNP is 366.1. RADIOGRAPHIC STUDIES: CT angiogram of the left upper extremity showed no arterial occlusion, but did show some severe edema. ASSESSMENT AND PLAN: 1. Septic shock: The patient is requiring Levophed. She has an increased lactic acid, tachycardia, hypotension, and acute kidney injury. The obvious sources are hand. I feel like she does have an a bscess and has developed compartment syndrome. I have asked ER to call Hand Surgery. They did conta ct Dr. Whalen and I have spoken with him on the phone personally on patient's arrival to the ICU. He will be coming to evaluate the patient urgently and likely taken to the operating room. 2. Cellulitis of the left forearm and abscess of the left hand, present on admission, likely seconda ry to Strep. Given her profound hypotension, bullous ecchymotic changes and erysipelas, it certainly looks to be group A streptococcus. We will place her on clindamycin 900 mg IV q.8 hours, and vancom ycin and Zosyn, pending cultures. I will follow up on results. Blood cultures have been obtained. 3. Hypertension. Currently hold medicines. She is currently hypotensive requiring pressors. 4. Hyperlipidemia. We will hold her fenofibrate for now. 5. History of breast cancer. 6. Acute kidney injury. Creatinine on presentation 1.45, unsure of her baseline, but no known histo ry of kidney disease. Greater than 30 minutes of critical care were rendered.
--- NOTE | 2017-07-22 09:36 | PDOC.PN ---
- Subjective Encounter Start Date: 07/22/17 Encounter Start Time: 09:33 Ms. Grande was seen today in follow-up of strep pyogenes sepsis. She is intubated , but will awaken and follow commands. - Objective Resuscitation Status: Resuscitation Status FULL:Full Resuscitation MAR Reviewed: Yes Vital Signs & Weight: Vital Signs (12 hours) Temp Pulse Resp BP Pulse Ox 07/22/17 08:00 98.6 F 07/22/17 06:50 133 H 147/80 H 07/22/17 06:00 14 07/22/17 04:00 98.5 F 14 07/22/17 02:50 90 12 97 07/22/17 02:00 13 07/22/17 00:00 98.4 F 11 L 07/21/17 22:03 132 H 12 96 07/21/17 22:00 15 Weight Admit Weight 190 lb Weight 214 lb 4.629 oz Most Recent Monitor Data Heart Rate from ECG 105 NIBP 151/83 NIBP BP-Mean 104 Respiration from ECG 33 SpO2 93 I&O: 07/21/17 07/22/17 07/23/17 06:59 06:59 06:59 Intake Total 2527.3 3573 236 Output Total 1957 1825 184 Balance 570.3 1748 52 Result Diagrams: 07/22/17 04:30 07/22/17 04:30 Additional Labs: Accuchecks 07/22/17 07/21/17 07/21/17 00:21 18:37 14:11 POC Glucose 243 H 156 H 169 H Phys Exam - Physical Examination HEENT: PERRLA, sclera anicteric Respiratory: no wheezing, no rales, no rhonchi, clear to auscultation bilateral Cardiovascular: RRR, no significant murmur, no rub Gastrointestinal: soft, non-tender, no distention, positive bowel sounds Musculoskeletal: edema present trace edema, and chronic venous stasis changes Dx/Plan (1) Acute respiratory failure with hypoxia Code(s): J96.01 - ACUTE RESPIRATORY FAILURE WITH HYPOXIA Status: Acute Comment: Continue SIMV at 40%, Rate 22, am ABG, PCXR, continue aggressive pulm support (2) Atrial fibrillation with RVR Code(s): I48.91 - UNSPECIFIED ATRIAL FIBRILLATION Status: Acute Comment: Continue rate control measures with IV Amiodarone (3) Necrotizing fasciitis due to Streptococcus pyogenes Code(s): M72.6 - NECROTIZING FASCIITIS; B95.0 - STREPTOCOCCUS, GROUP A, CAUSING DISEASES CLASSD ELSWHR Status: Acute Comment: Continue IV Ancef and Clindamycin, wound vac in place post-debridement (4) Septic shock Code(s): A41.9 - SEPSIS, UNSPECIFIED ORGANISM; R65.21 - SEVERE SEPSIS WITH SEPTIC SHOCK Status: Acute Comment: Continue Levophed and Vasopressin, IVF's , avoid antihypertensives, Hydrocortisone 50mg IV q6h (5) Thrombocytopenia Code(s): D69.6 - THROMBOCYTOPENIA, UNSPECIFIED Status: Acute - Plan * Acute respiratory failure due to sepsis- she is being weaned from the ventilator. * Strep Pyogenes sepsis from necrotyzing fasciitis of the left thumb- continue debridement as needed, and Cefazolin, and Clindamycin * AFIB/AFlutter- heart rate has been variable- continue Amiodarone * Elevated blood glucose- ? diabetic- continue SSI * Nutritional support with tube feeds
--- NOTE | 2017-07-22 09:46 | OP ---
DATE OF SURGERY: 07/20/2017 PREOPERATIVE DIAGNOSES: Left thumb, hand/wrist, and forearm wounds with previous history of thumb an d carpal tunnel/wrist infections with necrotizing fasciitis. INTRAOPERATIVE FINDINGS: 1. No gross purulence found, but did find that the thumb, distal phalanx bone and skin had become ne crotic and she had a new purpuric region without infection, but with possible early superficial necro sis over two-thirds of the palmar aspect of the index finger without dorsal changes whatsoever. 2, The patient had sampling of her thumb, flexor tendon, skin of the dorsal hand, skin of the wrist , and skin in the fascia/muscle of the forearm sent as a stat pathology procedure, but pathology came from home and performed the preliminary and the pending findings with no evidence of necrotizing fas ciitis at this point, today 07/20/2017. Despite the fact the patient's white count has been low for the first 3 days here, then began to elevate to 11,000, which is borderline elevation. SURGEON: Darwin Whalen M.D. ANESTHESIA: General LMA technique, Jose J Govea Anesthesia. PROCEDURES: 1. Debridement, wound multiple layers using the following technique: A. Excisional. B. Instrumentation with [place] blade, 11 blade knife, tenotomy scissors, Adson's, and Pulsavac. C. Findings and necrosis only seen at the thumb, distal phalanx. D. Depth was down to and including bone. 2. Tenosynovectomy and fasciectomy, fascia of the dorsal forearm over the dorsal wrist, metacarpal, palmar skin and the flexor tendons. 3. No VAC dressing was applied. 4. Debridement with sampling of the index finger using the same instruments and technique as listed above, distal phalanx region. ESTIMATED BLOOD LOSS: 50 mL TOURNIQUET TIME: None. No change in the color position. DESCRIPTION OF PROCEDURE: After successful general LMA technique, limb was prepped and draped. The patient had been brought down from the ICU directly and was still ventilated and also on some pressor s. After prepping and draping of arm, then began with inspection of the fascia and skin on the dorsal hughes nd which would have been a bridge between the second webspace and a fourth webspace fasciotomy incisi on. The skin, looking necrotic was excised completely, expanded the dorsal wound. We then inspected the flexor pollicus longus tendon in its entire course into the palm and from the palm into the wris t level and in the forearm and did not find any gross infection and performed a partial radical flexo r tenosynovectomy of this and the flexor digitorium profundus. No connection seemed to the ulnar bur sa. There was no other fluid seen. The patient had good pulse via color criteria. We then inspected the distal phalanx from the thumb, which had a skin bridge of 5 mm over it, and at the joint, there was no gross circulation seen. For this reason, because of history of possible shayan y necrosis, we removed via a partial amputation distal phalanx. At this point, the sampling as liste d above were then taken to the lab, underwent an immediate pathological specimen evaluated by nikki mishra. Pathologist of the day declared they did not show any evidence of necrotizing fasciitis.
--- NOTE | 2017-07-22 14:24 | PDOC.CTH ---
Cardiology Progress Note - Subjective No new issues. She remains intubated, sedated. - Objective Vital Signs Temp Pulse Resp BP Pulse Ox 07/22/17 10:38 100 122/66 07/22/17 08:00 98.6 F 16 07/22/17 07:40 98.6 F 133 H 12 94 L 07/22/17 06:50 133 H 147/80 H 07/22/17 06:00 14 07/22/17 04:00 98.5 F 14 07/22/17 02:50 90 12 97 Admit Weight 190 lb Weight 214 lb 4.629 oz 07/21/17 07/22/17 07/23/17 06:59 06:59 06:59 Intake Total 2527.3 3573 236 Output Total 1331 2075 1059 Balance 570.3 1748 -823 - Physical Examination General/Neuro: other: (sedated, intubated) Neck: no JVD present Lungs: unlabored respirations Heart: RRR Abdomen: NT/ND Extremities: + edema B (1+) - Telemetry Telemetry Rhythm: S tach. - Labs Result Diagrams: 07/22/17 04:30 07/22/17 04:30 Troponin/CKMB CK-MB (CK-2) 3.2 ng/mL (0-6.6) 07/17/17 05:55 Troponin I Less than 0.010 ng/mL (< 0.028) 07/17/17 05:55 - Assessment/Plan 1. Afib RVR, currently in sinus. 2. Septic shock 3. Strep pyogenes bacteremia 4. Hand infection, primary source 5. Hypokalemia, improved. 6. Mild LV dysfunction likely due to rapid afib. EF 40-45% PLAN: - Continue Amiodarone drip. - Replace K aggressively to above 4.0 - Continue low dose metoprolol. - If afib recurs will start full dose lovenox. - Lasix IV as she has been about 6L positive and starting to get pulm edema.
[2017-07-22 15:49] LABS: Potassium 3.4 mmol/L (3.5-5.1)
[2017-07-22] MEDS ORDERED: Sodium Chloride 0.9% 0 ML ONE (19:44)
[2017-07-22] MEDS: Pantoprazole 40 MG VIAL IVP SCH (20:35)
--- NOTE | 2017-07-23 00:22 | PRG ---
DATE OF SERVICE: 07/22/2017 The patient is in ICU, intubated, still. Temperature max 99.2, blood pressure 130/70, , respirations 17. She has a left subclavian central line still the same. Left upper extremity with the negative pressure dressing. Yesterday, she had debridement of multiple wounds layers. She had debridement with sampling of the index finger as well, multiple specimens for pathology are pending at this time. Microbiology with Streptococcus pyogenes retrieved all the way to 07/20/2017, susceptibility is broaden. ASSESSMENT AND DISCUSSION: Streptococcus pyogenes necrotizing fasciitis, status post surgical debridement with improving inflammatory process, although there has been an increase in total white cell count but the differential shows decrease in bands which reflects improvement in the overall inflammatory process. Off vasopressors now. Hopefully will be able to be extubated soon. ROMEL
--- NOTE | 2017-07-23 01:01 | OP ---
DATE OF PROCEDURE: 07/21/2017 PREOPERATIVE DIAGNOSIS: Wounds, with a history of necrotizing fasciitis of the palm, wrist and thumb volar and dorsal skin greater than 100 square cm. POSTOPERATIVE DIAGNOSIS: Wounds with no evidence of necrotizing fasciitis grossly, no evidence of in fection seen, only skin necrosis seen over the dorsal thumb skin which was resected. PROCEDURES PERFORMED: 1. Debridement of wound, fascia and skin of the wrist dorsal palmar wound, thumb dorsal palmar wound and the deep hand underneath the arch. 2. Application of VAC dressing, wrist, hand and forearm greater than 100 square cm. 3. Antibiotic (tobramycin) infiltrated beads to the thumb and palm. 4. Multiple skin and fascial samples from the following sites; a. Dorsal thumb. b. Deep palmar thumb and hand. c. Metacarpal head level skin and subcutaneous fascia. d. Wrist dorsal skin and subcutaneous fascia. e. Volar wrist skin and subcutaneous fascia. FINDINGS: Again minimal wound necrosis primarily 5-6 mm wide, 2.5 cm long dorsal skin bridge over th e thumb with no underlying gross infection. INDICATIONS: The patient was in apparent septic shock, had a low white blood cell count for over 72- 80 hours and then had elevation of white blood cell count in the last 24 hours prior to evaluation of 17,000. Repeat was still around 17,000, so felt we need to ensure she had no further abscess format ion and change her from wet to dry dressing to VAC dressing. SURGEON: Darwin Whalen MD. ANESTHESIA: Turkish anesthesia, general, she already was intubated. DESCRIPTION OF PROCEDURE: After successful general endotracheal anesthesia, the limb was prepped and draped and removed all the dressings. No tourniquet was applied. We began inspection and it was he re that we tested all the wounds. We also extended the incision 1 cm on her index finger and inspect ed this area, found no gross infection indeed. There was bleeding once we debrided a small amount of subcutaneous fat in this area and the necrosis had diminished where the palmar skin had bleeding and circumferential pinkness to the level of the distal phalangeal joint. At the thumb, she had a 2.5 mm long by 5 mm wide skin bridge, when debrided on this area, did not ble ed, so we removed this and the fascia as well and was supplied as sample. The underlying muscle and fat did bleed. We then removed approximately 3 mm wide by 4 mm long area of skin over the dorsum edge in a horseshoe shape around the previous incision. All the compartment areas had their fat debrided from the open wounds from compartment releases including the small fingers and hypothenar area, the area of the vol ar fascia released proximal to the wrist, the volar and dorsal forearm and the mobile wad compartment areas. Then, we irrigated the total area of 6 liters of normal saline with 3 and 4 areas, for earm wounds and 3 in the hand, thumb, dorsal and volar wrist area. All areas had appropriate bleeding and we had adequate hemostasis. We then placed a complex VAC surr ounding the thumb where we covered the thumb tendon, flexor pollicis longus and the extensors, the muna ne edge with white sponge, the dorsal extensor tendons and the 1 and 2 exposed flexor tendons in the distal forearm wound with white sponge and then placed a black sponge in each site. We used two sepa rate VAC machine with one VAC machine involving the entire hand and wrist/forearm volar incision and then the other VAC involving with a bridge in the shape of a "pack" for the proximal three wounds, al l with excellent suction and no leak potential. She then left the operating room in a soft dressing with no evidence of anesthetic or operative complication with the VAC had good suction.
[2017-07-23 04:52] LABS: ALT (SGPT) 54 U/L (8-55); AST (SGOT) 134 U/L (5-34); Albumin 2.5 g/dL (3.4-4.8); Alkaline Phosphatase 144 U/L (40-150); BUN (Urea Nitrogen) 32 mg/dL (9.8-20.1); Bilirubin, Total 1.3 mg/dL (0.2-1.2); Calc. Creatinine Clearance 108 mL/min (70-130); Calcium 7.7 mg/dL (7.8-10.44); Estimated GFR-MDRD 80; Globulin 2.3 g/dL (2.4-3.5); Glucose 165 mg/dL (83-110); Phosphorus 2.1 mg/dL (2.3-4.7); Protein, Total 4.8 g/dL (6.0-8.3)
[2017-07-23 04:55] LABS: Hemoglobin 9.9 g/dL (12.0-16.0); Mean Corpuscular HGB CONC 34.1 g/dL (32.0-36.0); Mean Corpuscular Hemoglobin 33.2 pg (27.0-31.0); Mean Corpuscular Volume 97.4 fl (81.0-99.0); Mean Platelet Volume 10.1 fL (7.4-10.4); Platelet Count 109 thou/uL (130-400); RBC Distribution Width 13.1 % (11.5-14.5); Red Blood Cell (RBC) Count 2.98 mill/uL (4.20-5.40); White Blood Cell (WBC) Count 19.6 thou/uL (4.8-10.8)
[2017-07-23 05:01] LABS: Anion Gap 12 mmol/L (10-20); Carbon Dioxide 37 mmol/L (23-31); Chloride 98 mmol/L (98-107); Potassium 3.1 mmol/L (3.5-5.1); Sodium 144 mmol/L (136-145)
[2017-07-23] MEDS: Clindamycin/D5W 900 MG in Premix Bag 1 BAG IVPB SCH ×3 (05:24→18:27)
[2017-07-23] MEDS: Metoprolol Tartrate 5 MG/5 ML VIAL IVP SCH ×3 (05:26→18:38)
[2017-07-23 05:31] LABS: Band 10 % (5-11); Eosinophils 1 % (0-10); Lymphocytes 7 % (21-51); MDiff Complete? YES; Metamyelocyte 2 % (0-0); Monocytes 9 % (0-10); Myelocyte 1 % (0-0); Neutrophil 70 % (42-75); PLT Morphology Comment Appears Decreased; RBC Morphology Normal
[2017-07-23] MEDS: Hydrocortisone Sod Succ/PF 100 mg/2 ml Vial IVP SCH ×3 (05:32→18:27)
[2017-07-23] MEDS: CEFAZOLIN/Water 2 GM/20 ML SYRINGE SLOW IVP SCH ×3 (05:32→21:45)
[2017-07-23 07:19] LABS: Actual Bicarbonate (HCO3a) 38.5 mEq/L (22-26); Base Excess (BEa) 13.8 mEq/L (0 (+/-) 2.5); CO2 Tension 50.3 mmHg (35.0-45.0); Hematocrit-ABG 28.9 % (36.0-47.0); Hemoglobin (Hb) 9.3 g/dL (12.0-16.0); O2 Tension (PaO2) 63.5 mmHg (80.0-100.0)
[2017-07-23 07:20] LABS: ALV-art Gradient 123.175 (0-20); Puncture Site RRA
[2017-07-23] MEDS ORDERED: acetaZOLAMIDE Sodium 500 mg Vial IVP SCH (07:50)
[2017-07-23] MEDS ORDERED: Morphine 4 MG/ML Carpuject SLOW IVP PRN (07:51)
--- NOTE | 2017-07-23 08:12 | PRG ---
DATE OF SERVICE: 07/23/2017 Thirty minutes critical care time. The patient remains intubated on mechanical ventilation. She is undergoing a spontaneous breathing t rial since yesterday and has done well on that. PHYSICAL EXAMINATION: VITAL SIGNS: Temperature is 98.7, pulse 83, blood pressure 162/87. 24 hour intake 2776, output 2519 . Weight 216 pounds. HEENT: Unremarkable. NECK: No JVD. CHEST: Fairly clear. CARDIAC: S1 and S2 regular. She is on amiodarone. ABDOMEN: Soft, nontender. EXTREMITIES: She has a dressing over her left hand. LABORATORY DATA: Sodium 144, potassium 3.1, chloride 98, CO2 37, BUN 32, creatinine 0.7, glucose 165 . Albumin is 2.5. White blood cell count 19.6, hematocrit 29.1, platelet count 109. ABG; pH 7.50, pCO2 50, PO2 63. Chest x-ray shows some pulmonary vascular congestion. ASSESSMENT: 1. Necrotizing fasciitis from Strep pyogenes in the left arm. 2. Septic shock. 3. Acute respiratory failure. PLAN: She can be extubated. I will give her a dose of Diamox because of her metabolic alkalosis. I will start her on Lovenox for DVT prophylaxis since her platelet count has improved.
[2017-07-23] MEDS ORDERED: Metoclopramide HCl 10 MG/2 ML VIAL IVP PRN (08:25)
--- NOTE | 2017-07-23 08:35 | PDOC.PN ---
- Subjective Encounter Start Date: 07/23/17 Encounter Start Time: 08:33 Ms. Grande was seen today in follow-up of Strep Pyogenes sepsis. She was extubated this morning. She is a bit groggy, when asked how she is feeling she shrugs her shoulders. She indicates she is not in pain. - Objective Resuscitation Status: Resuscitation Status FULL:Full Resuscitation MAR Reviewed: Yes Vital Signs & Weight: Vital Signs (12 hours) Temp Pulse Resp Pulse Ox 07/23/17 07:57 99 28 H 89 L 07/23/17 07:06 83 07/23/17 06:00 23 H 07/23/17 04:00 41 H 07/23/17 02:26 96 40 H 98 07/23/17 02:00 20 07/23/17 00:00 98.7 F 29 H 07/22/17 22:04 107 H 29 H 96 07/22/17 22:00 23 H Weight Admit Weight 190 lb Weight 216 lb 14.958 oz Most Recent Monitor Data Heart Rate from ECG 83 NIBP 162/87 NIBP BP-Mean 105 Respiration from ECG 19 SpO2 98 I&O: 07/22/17 07/23/17 07/24/17 06:59 06:59 06:59 Intake Total 3573 2776.2 Output Total 1825 2519 Balance 1748 257.2 Result Diagrams: 07/23/17 04:18 07/23/17 04:18 Additional Labs: Accuchecks 07/23/17 07/22/17 07/22/17 04:19 20:36 18:22 POC Glucose 176 H 169 H 161 H 07/22/17 11:28 POC Glucose 169 H Phys Exam - Physical Examination HEENT: PERRLA, sclera anicteric Respiratory: wheezing present + expiratory wheeze Cardiovascular: RRR, no significant murmur, no rub Gastrointestinal: soft, positive bowel sounds Musculoskeletal: edema present Dx/Plan (1) Acute respiratory failure with hypoxia Code(s): J96.01 - ACUTE RESPIRATORY FAILURE WITH HYPOXIA Status: Acute Comment: Continue SIMV at 40%, Rate 22, am ABG, PCXR, continue aggressive pulm support (2) Atrial fibrillation with RVR Code(s): I48.91 - UNSPECIFIED ATRIAL FIBRILLATION Status: Acute Comment: Continue rate control measures with IV Amiodarone (3) Necrotizing fasciitis due to Streptococcus pyogenes Code(s): M72.6 - NECROTIZING FASCIITIS; B95.0 - STREPTOCOCCUS, GROUP A, CAUSING DISEASES CLASSD ELSWHR Status: Acute Comment: Continue IV Ancef and Clindamycin, wound vac in place post-debridement (4) Septic shock Code(s): A41.9 - SEPSIS, UNSPECIFIED ORGANISM; R65.21 - SEVERE SEPSIS WITH SEPTIC SHOCK Status: Acute Comment: Continue Levophed and Vasopressin, IVF's , avoid antihypertensives, Hydrocortisone 50mg IV q6h (5) Thrombocytopenia Code(s): D69.6 - THROMBOCYTOPENIA, UNSPECIFIED Status: Acute - Plan * Strep Pyogenes Sepsis as a result of Necrotyzing Fasciitis of the left thumb- she is s/p debridement- continue Cefazolin and Clindamycin * DM- blood glucose is stable * AFIB- her heart rate is stable on Amiodarone * Hypokalemia- continue to replace potassium as per the electrolyte protocol * She has been extubated- continue aggressive Pulmonary toilet, and duonebs * Leukocytosis- ? will observe
[2017-07-23] MEDS: Furosemide 40 MG/4 ML VIAL SLOW IVP SCH (08:37)
[2017-07-23] MEDS: Potassium Chloride 40 MEQ in Premix Bag 1 BAG IVPB PRN (08:48)
--- NOTE | 2017-07-23 08:51 | RAD ---
AP CHEST: Indication: History of intubation. Comparison: 07-22-17 FINDINGS: The ET tube, gastric catheter, and left subclavian central venous catheter are unchanged. Pulmonary v ascular congestion and perihilar edema is similar. Cardiomegaly is unchanged. Small bilateral pleural effusions persist. No pneumothorax is evident. IMPRESSION: Stable exam. POS: [facility]
[2017-07-23] MEDS ORDERED: Enoxaparin Sodium 40 MG/0.4 ML SYRINGE SC SCH (09:00)
[2017-07-23 10:22] LABS: Fungus Stain Final report (.)
[2017-07-23 10:22] LABS: Fungus Stain Final report (.)
[2017-07-23 10:22] LABS: Fungus Stain Final report (.)
[2017-07-23] MEDS: Morphine 4 MG/ML VIAL SLOW IVP PRN ×2 (14:30→18:35)
--- NOTE | 2017-07-23 18:19 | PDOC.CTH ---
Cardiology Progress Note - Subjective She was extubated earlier today. She remains in sinus. - Objective Vital Signs Temp Pulse Resp Pulse Ox 07/23/17 16:00 98.2 F 07/23/17 14:07 81 27 H 96 07/23/17 12:00 98.3 F 07/23/17 10:00 120 H 30 H 100 07/23/17 08:00 98.4 F 75 28 H 92 L 07/23/17 07:57 99 28 H 89 L 07/23/17 07:06 83 Admit Weight 190 lb Weight 216 lb 14.958 oz 07/22/17 07/23/17 07/24/17 06:59 06:59 06:59 Intake Total 3573 2776.2 Output Total 1825 0269 2877 Balance 1748 257.2 -2877 - Physical Examination General/Neuro: alert & oriented x3, NAD Neck: no JVD present Lungs: CTA, unlabored respirations Heart: RRR Abdomen: NT/ND Extremities: + edema B (1+) - Telemetry Telemetry Rhythm: NSR - Labs Result Diagrams: 07/23/17 04:18 07/23/17 04:18 Troponin/CKMB CK-MB (CK-2) 3.2 ng/mL (0-6.6) 07/17/17 05:55 Troponin I Less than 0.010 ng/mL (< 0.028) 07/17/17 05:55 - Assessment/Plan 1. Afib RVR, currently in sinus. 2. Septic shock 3. Strep pyogenes bacteremia 4. Hand infection, primary source 5. Hypokalemia. 6. Mild LV dysfunction likely due to rapid afib. EF 40-45% PLAN: - Continue Amiodarone drip today, will plan on switching to PO tomorrow. - Replace K aggressively to above 4.0 - Continue low dose metoprolol. - Will switch Lovenox to full dose for stroke prophylaxis.
[2017-07-23] MEDS: Amiodarone HCl 450 MG, Admixture Fee 1 EACH in Dextrose 5% in Water 250 ML IVPB SCH (18:26)
[2017-07-23] MEDS: Enoxaparin Sodium 100 MG/ML SYRINGE SC SCH (21:44)
[2017-07-23] MEDS: Pantoprazole 40 MG VIAL IVP SCH (21:44)
[2017-07-24] MEDS: Clindamycin/D5W 900 MG in Premix Bag 1 BAG IVPB SCH ×5 (00:27→23:45)
[2017-07-24] MEDS: Hydrocortisone Sod Succ/PF 100 mg/2 ml Vial IVP SCH ×5 (00:27→23:45)
[2017-07-24] MEDS: Metoprolol Tartrate 5 MG/5 ML VIAL IVP SCH ×5 (00:27→23:49)
[2017-07-24] MEDS: CEFAZOLIN/Water 2 GM/20 ML SYRINGE SLOW IVP SCH ×3 (05:17→21:14)
[2017-07-24 05:50] LABS: Band 10 % (5-11); Hemoglobin 9.1 g/dL (12.0-16.0); Lymphocytes 11 % (21-51); MDiff Complete? YES; Mean Corpuscular HGB CONC 33.1 g/dL (32.0-36.0); Mean Corpuscular Hemoglobin 32.4 pg (27.0-31.0); Mean Corpuscular Volume 97.8 fl (81.0-99.0); Mean Platelet Volume 9.4 fL (7.4-10.4); Metamyelocyte 3 % (0-0); Monocytes 1 % (0-10); Neutrophil 75 % (42-75); PLT Morphology Comment Appears Adequate; Platelet Count 130 thou/uL (130-400); RBC Distribution Width 13.4 % (11.5-14.5); White Blood Cell (WBC) Count 17.1 thou/uL (4.8-10.8)
[2017-07-24 05:54] LABS: ALT (SGPT) 41 U/L (8-55); AST (SGOT) 72 U/L (5-34); Albumin 2.5 g/dL (3.4-4.8); Alkaline Phosphatase 123 U/L (40-150); Anion Gap 10 mmol/L (10-20); BUN (Urea Nitrogen) 32 mg/dL (9.8-20.1); Bilirubin, Total 0.9 mg/dL (0.2-1.2); Calc. Creatinine Clearance 105 mL/min (70-130); Calcium 7.4 mg/dL (7.8-10.44); Carbon Dioxide 37 mmol/L (23-31); Chloride 99 mmol/L (98-107); Estimated GFR-MDRD 76; Globulin 2.3 g/dL (2.4-3.5); Glucose 159 mg/dL (83-110); Magnesium 1.8 mg/dL (1.6-2.6); Phosphorus 3.2 mg/dL (2.3-4.7); Potassium 2.8 mmol/L (3.5-5.1); Protein, Total 4.8 g/dL (6.0-8.3); Sodium 143 mmol/L (136-145)
[2017-07-24] MEDS: Potassium Chloride 40 MEQ in Premix Bag 1 BAG IVPB PRN (07:59)
--- NOTE | 2017-07-24 08:08 | PRG ---
DATE OF SERVICE: 07/24/2017 SUBJECTIVE: The patient is up in a chair. She was extubated yesterday. She is doing relatively goo d. PHYSICAL EXAMINATION: VITAL SIGNS: Temperature is 98.4, pulse 81, blood pressure 170/82. 24 hour intake 992, output 3677. HEENT: Unremarkable. NECK: No JVD. LUNGS: Coarse breath sounds bilaterally. CARDIOVASCULAR: S1, S2 regular. ABDOMEN: Soft, nontender. EXTREMITIES: Edematous hands, bandage over her left hand. LABORATORY DATA: Sodium 142, potassium 2.8, chloride 99, CO2 37, BUN 32, creatinine 0.7, glucose 159 , albumin 2.5. White blood count 17, hematocrit 27.4, platelet count 130. Chest x-ray shows congestion. ASSESSMENT: 1. Status post sepsis syndrome related necrotizing fasciitis. 2. Status post acute respiratory failure. 2. Atrial fibrillation. 3. Fluid overloaded. 4. Contraction metabolic alkalosis. PLAN: 1. Switch diuretic to Diamox. 2. Start clear liquid diet if she passes speech parameters. 3. Continue antibiotics. 4. Start EzPAP. 5. Replace potassium.
[2017-07-24] MEDS ORDERED: Amiodarone 200 MG TAB PO SCH (09:00)
[2017-07-24] MEDS ORDERED: Metoprolol Tartrate 25 MG TAB PO SCH (09:00)
[2017-07-24] MEDS: acetaZOLAMIDE Sodium 500 mg Vial IVP SCH ×2 (09:08→21:11)
[2017-07-24] MEDS: Enoxaparin Sodium 100 MG/ML SYRINGE SC SCH ×2 (09:10→21:14)
--- NOTE | 2017-07-24 09:30 | PDOC.PN ---
- Subjective Encounter Start Date: 07/24/17 Encounter Start Time: 09:29 Subjective: alert, weak, pain in L hand ,arm - Objective Resuscitation Status: Resuscitation Status FULL:Full Resuscitation Vital Signs & Weight: Vital Signs (12 hours) Temp Pulse Resp Pulse Ox 07/24/17 07:00 98.2 F 07/24/17 06:56 75 21 H 100 07/24/17 04:00 98.4 F 07/24/17 02:10 88 24 H 94 L 07/24/17 00:00 98.9 F 07/23/17 22:03 87 32 H 98 Weight Admit Weight 190 lb Weight 216 lb 14.958 oz Most Recent Monitor Data Heart Rate from ECG 91 NIBP 150/79 NIBP BP-Mean 106 Respiration from ECG 28 SpO2 94 I&O: 07/23/17 07/24/17 07/25/17 06:59 06:59 06:59 Intake Total 2776.2 992 Output Total 2519 3677 140 Balance 257.2 -2685 -140 Result Diagrams: 07/24/17 05:15 07/24/17 05:15 Additional Labs: Accuchecks 07/24/17 07/23/17 07/23/17 05:17 21:51 18:43 POC Glucose 161 H 147 H 142 H 07/23/17 12:33 POC Glucose 148 H Radiology Reviewed by me: Yes (cxr, bilat infiltrates, L>R) EKG Reviewed by me: Yes (rsr) Phys Exam - Physical Examination Neck: no JVD coarse, bilat scattered rhonchi Cardiovascular: RRR, no significant murmur Gastrointestinal: soft, non-tender Musculoskeletal: edema present dressing on L hand, wrist Dx/Plan (1) HENRIETTA (acute kidney injury) Code(s): N17.9 - ACUTE KIDNEY FAILURE, UNSPECIFIED Status: Resolved Comment : Avoid nephrotoxic meds and limit contrast exposure, serial creatinine, follow I/O's and daily weight (2) Acute respiratory failure with hypoxia Code(s): J96.01 - ACUTE RESPIRATORY FAILURE WITH HYPOXIA Status: Resolved Comment: Continue SIMV at 40%, Rate 22, am ABG, PCXR, continue aggressive pulm support (3) Atrial fibrillation with RVR Code(s): I48.91 - UNSPECIFIED ATRIAL FIBRILLATION Status: Acute Comment: Continue rate control measures with IV Amiodarone (4) Necrotizing fasciitis due to Streptococcus pyogenes Code(s): M72.6 - NECROTIZING FASCIITIS; B95.0 - STREPTOCOCCUS, GROUP A, CAUSING DISEASES CLASSD ELSWHR Status: Acute Comment: Continue IV Ancef and Clindamycin, wound vac in place post-debridement (5) Septic shock Code(s): A41.9 - SEPSIS, UNSPECIFIED ORGANISM; R65.21 - SEVERE SEPSIS WITH SEPTIC SHOCK Status: Acute Comment: Continue Levophed and Vasopressin, IVF's , avoid antihypertensives, Hydrocortisone 50mg IV q6h (6) Hypertension Code(s): I10 - ESSENTIAL (PRIMARY) HYPERTENSION Status: Chronic Qualifiers: Hypertension type: essential hypertension Qualified Code(s): I10 - Essential (primary) hypertension (7) Dyslipidemia Code(s): E78.5 - HYPERLIPIDEMIA, UNSPECIFIED Status: Chronic - Plan stable off vent, swallowing study pending -: cont iv antibx, wound care -: morphine iv for pain -: discuss with game producer -: on iv amiodarone, now in RSR * .
--- NOTE | 2017-07-24 09:36 | RAD ---
CHEST 1 VIEW: Date: 07/24/17 HISTORY: Dyspnea. Follow-up. COMPARISON: 07/23/17. FINDINGS: Cardiac silhouette is magnified and upper limits of normal in size. Pulmonary vasculature remains eng orged with patchy areas of infiltrate throughout each lung, similar in appearance to the previous rahat dy. The patient is rotated rightward. Left subclavian central venous catheter remains in place. Endot boby catheter and nasogastric tube are no longer visible. court recording monitor leads overlie the chest. IMPRESSION: 1. Interval removal of endotracheal catheter and nasogastric tube. 2. Pulmonary edema, patchy infiltrates, and other findings are otherwise stable. POS: [facility]
[2017-07-24] MEDS: Morphine 4 MG/ML VIAL SLOW IVP PRN (11:23)
[2017-07-24] MEDS: Amiodarone HCl 450 MG, Admixture Fee 1 EACH in Dextrose 5% in Water 250 ML IVPB SCH (12:09)
[2017-07-24 15:16] LABS: Potassium 5.7 mmol/L (3.5-5.1)
[2017-07-24] MEDS: Pantoprazole 40 MG VIAL IVP SCH (21:11)
[2017-07-25] MEDS ORDERED: DC Sedation Protocol FS ONE (00:08)
[2017-07-25] MEDS ORDERED: DC Electrolyte Protocol FS ONE (00:09)
[2017-07-25] MEDS ORDERED: diphenhydrAMINE 50 MG/ML VIAL IVP SCH (00:15)
[2017-07-25] MEDS: Amiodarone HCl 450 MG, Admixture Fee 1 EACH in Dextrose 5% in Water 250 ML IVPB SCH ×2 (02:31→16:17)
[2017-07-25] MEDS: CEFAZOLIN/Water 2 GM/20 ML SYRINGE SLOW IVP SCH ×3 (05:30→22:24)
[2017-07-25] MEDS: Metoprolol Tartrate 5 MG/5 ML VIAL IVP SCH ×4 (05:30→22:25)
[2017-07-25] MEDS: Clindamycin/D5W 900 MG in Premix Bag 1 BAG IVPB SCH ×2 (05:30→13:37)
[2017-07-25] MEDS: Hydrocortisone Sod Succ/PF 100 mg/2 ml Vial IVP SCH ×3 (05:31→21:22)
[2017-07-25 06:14] LABS: ALT (SGPT) 40 U/L (8-55); AST (SGOT) 75 U/L (5-34); Albumin 2.7 g/dL (3.4-4.8); Alkaline Phosphatase 140 U/L (40-150); Anion Gap 8 mmol/L (10-20); BUN (Urea Nitrogen) 29 mg/dL (9.8-20.1); Bilirubin, Total 0.9 mg/dL (0.2-1.2); Calc. Creatinine Clearance 114 mL/min (70-130); Calcium 7.7 mg/dL (7.8-10.44); Carbon Dioxide 34 mmol/L (23-31); Chloride 103 mmol/L (98-107); Estimated GFR-MDRD 82; Globulin 2.4 g/dL (2.4-3.5); Glucose 146 mg/dL (83-110); Phosphorus 2.8 mg/dL (2.3-4.7); Potassium 2.3 mmol/L (3.5-5.1); Protein, Total 5.1 g/dL (6.0-8.3); Sodium 143 mmol/L (136-145)
[2017-07-25 06:26] LABS: Band 8 % (5-11); Hemoglobin 9.3 g/dL (12.0-16.0); Lymphocytes 12 % (21-51); MDiff Complete? YES; Mean Corpuscular HGB CONC 33.4 g/dL (32.0-36.0); Mean Corpuscular Hemoglobin 33.2 pg (27.0-31.0); Mean Corpuscular Volume 99.3 fl (81.0-99.0); Mean Platelet Volume 9.9 fL (7.4-10.4); Metamyelocyte 1 % (0-0); Monocytes 4 % (0-10); Myelocyte 3 % (0-0); Neutrophil 72 % (42-75); Platelet Count 155 thou/uL (130-400); RBC Distribution Width 13.9 % (11.5-14.5); Red Blood Cell (RBC) Count 2.81 mill/uL (4.20-5.40); White Blood Cell (WBC) Count 15.7 thou/uL (4.8-10.8)
[2017-07-25] MEDS ORDERED: PROPOFOL 200 MG/20 ML VIAL ONE (07:05)
[2017-07-25] MEDS: Potassium Chloride 20 MEQ in Premix Bag 1 BAG IVPB SCH ×2 (08:00→09:54)
[2017-07-25] MEDS ORDERED: Furosemide 40 MG/4 ML VIAL SLOW IVP SCH (08:00)
--- NOTE | 2017-07-25 08:03 | PDOC.PN ---
- Subjective Encounter Start Date: 07/25/17 Encounter Start Time: 08:01 Subjective: sob, diarrhea x4 this AM - Objective Resuscitation Status: Resuscitation Status FULL:Full Resuscitation MAR Reviewed: Yes Vital Signs & Weight: Vital Signs (12 hours) Temp Pulse Resp Pulse Ox 07/25/17 07:23 83 22 H 95 07/25/17 02:14 80 20 95 07/24/17 23:45 98.5 F 83 20 92 L 07/24/17 23:04 83 16 97 Weight Admit Weight 190 lb Weight 219 lb 11.2 oz Most Recent Monitor Data Heart Rate from ECG 83 NIBP 188/78 NIBP BP-Mean 98 Respiration from ECG 29 SpO2 95 I&O: 07/24/17 07/25/17 07/26/17 06:59 06:59 06:59 Intake Total 992 1189 Output Total 3677 2102 Balance -2685 -913 Result Diagrams: 07/25/17 05:27 07/25/17 05:27 Additional Labs: Accuchecks 07/25/17 07/25/17 07/24/17 06:01 00:52 21:11 POC Glucose 147 H 162 H 169 H 07/24/17 07/24/17 18:16 11:16 POC Glucose 169 H 168 H Radiology Reviewed by me: Yes (persistent bilat infiltrates) Phys Exam - Physical Examination Neck: no JVD wheezes bilat, decreased BS LLL Cardiovascular: irregular Gastrointestinal: soft, non-tender, positive bowel sounds Musculoskeletal: edema present Dx/Plan (1) HENRIETTA (acute kidney injury) Code(s): N17.9 - ACUTE KIDNEY FAILURE, UNSPECIFIED Status: Resolved Comment : Avoid nephrotoxic meds and limit contrast exposure, serial creatinine, follow I/O's and daily weight (2) Acute respiratory failure with hypoxia Code(s): J96.01 - ACUTE RESPIRATORY FAILURE WITH HYPOXIA Status: Resolved Comment: Continue SIMV at 40%, Rate 22, am ABG, PCXR, continue aggressive pulm support (3) Atrial fibrillation with RVR Code(s): I48.91 - UNSPECIFIED ATRIAL FIBRILLATION Status: Acute Comment: Continue rate control measures with IV Amiodarone (4) Necrotizing fasciitis due to Streptococcus pyogenes Code(s): M72.6 - NECROTIZING FASCIITIS; B95.0 - STREPTOCOCCUS, GROUP A, CAUSING DISEASES CLASSD ELSWHR Status: Acute Comment: Continue IV Ancef and Clindamycin, wound vac in place post-debridement (5) Septic shock Code(s): A41.9 - SEPSIS, UNSPECIFIED ORGANISM; R65.21 - SEVERE SEPSIS WITH SEPTIC SHOCK Status: Acute Comment: Continue Levophed and Vasopressin, IVF's , avoid antihypertensives, Hydrocortisone 50mg IV q6h (6) Hypertension Code(s): I10 - ESSENTIAL (PRIMARY) HYPERTENSION Status: Chronic Qualifiers: Hypertension type: essential hypertension Qualified Code(s): I10 - Essential (primary) hypertension (7) Dyslipidemia Code(s): E78.5 - HYPERLIPIDEMIA, UNSPECIFIED Status: Chronic (8) Cardiomyopathy Code(s): I42.9 - CARDIOMYOPATHY, UNSPECIFIED Status: Acute Qualifiers: Cardiomyopathy type: unspecified Qualified Code(s): I42.9 - Cardiomyopathy , unspecified (9) Atrial fibrillation with controlled ventricular response Code(s): I48.91 - UNSPECIFIED ATRIAL FIBRILLATION Status: Resolved (10) Diarrhea Code(s): R19.7 - DIARRHEA, UNSPECIFIED Status: Acute Qualifiers: Diarrhea type: unspecified type Qualified Code(s): R19.7 - Diarrhea, unspecified Plan: stool for C diff pending (11) Colitis due to Clostridium difficile Status: Acute (12) Respiratory alkalosis Code(s): E87.3 - ALKALOSIS Status: Acute - Plan stat CXR. wt up 14 #, lasix 40 iv now -: await c diff results. pos -: cont iv antibx for nec. fascitis -: dobhof for po vancomycin -: discuss with Pulmonology * .
[2017-07-25] MEDS: Morphine 4 MG/ML VIAL SLOW IVP PRN ×2 (08:15→21:14)
--- NOTE | 2017-07-25 09:05 | PRG ---
DATE OF SERVICE: 07/25/2017 The patient is complaining of shortness of breath. PHYSICAL EXAMINATION: VITAL SIGNS: Temperature is 98.5, pulse 82, respirations 26, O2 sat 95% on 4 liters, blood pressure 183/88. HEENT: Unremarkable. NECK: No JVD. CHEST: With crackles at the bases. CARDIAC: S1, S2 regular. ABDOMEN: Soft. EXTREMITIES: Edematous. She also has a bandage on her left hand. LABORATORY DATA: Sodium 143, potassium 2.3, chloride 103, CO2 34, BUN 29, creatinine 0.7, glucose 14 6. White blood cell count 15.7, hematocrit 27.9, platelet count 155, a C. diff screen is pending. ASSESSMENT: 1. Status post necrotizing fasciitis. 1. Status post acute respiratory failure requiring mechanical ventilation. 2. Fluid overload. 3. Paroxysmal atrial fibrillation. RECOMMENDATION: 1. I would go ahead and try to advance her diet as it appears to me that she can probably swallow. 2. Decrease the Solu-Cortef. 3. Antibiotic management per Dr. Whitaker. 4. Anticoagulation per Cardiology. 5. Initiate physical therapy and increase activity as tolerated.
--- NOTE | 2017-07-25 09:25 | RAD ---
CHEST 1 VIEW: HISTORY: Dyspnea. COMPARISON: 07/24/17. FINDINGS: Cardiac silhouette magnified and upper limits of normal in size. Pulmonary vasculature engorged. Pa tchy areas of parenchymal infiltrate throughout each lung are similar in appearance to the prior stud y. Mediastinum midline with aortic calcification and left subclavian central venous catheter. IMPRESSION: Pulmonary edema, patchy infiltrates, and other findings are stable. POS: [facility]
[2017-07-25] MEDS: Enoxaparin Sodium 100 MG/ML SYRINGE SC SCH ×2 (09:54→21:33)
[2017-07-25] MEDS: hydrALAZINE 20 MG/ML VIAL SLOW IVP PRN (11:37)
[2017-07-25 12:25] LABS: Actual Bicarbonate (HCO3a) 30.9 mEq/L (22-26); CO2 Tension 32.7 mmHg (35.0-45.0); Hematocrit-ABG 33.6 % (36.0-47.0); O2 Tension (PaO2) 59.5 mmHg (80.0-100.0); pH, Arterial 7.59 (7.35-7.45)
[2017-07-25 12:26] LABS: ALV-art Gradient 154.505 (0-20); Hemoglobin (Hb) 11.3 g/dL (12.0-16.0); Puncture Site RFA
[2017-07-25] MEDS ORDERED: CCU Electrolyte Replacement 1 EACH FS SCH (12:42)
[2017-07-25] MEDS ORDERED: Potassium Phosphate 15 MMOL in Sodium Chloride 0.9% 250 ML 250 ML IV PRN (12:48)
[2017-07-25] MEDS ORDERED: CCU ELECTROLYTE REPLACEMENT PROTOCOL FS PRN (12:48)
[2017-07-25] MEDS ORDERED: Potassium Chloride 20 MEQ TAB PO PRN (12:48)
[2017-07-25] MEDS ORDERED: Magnesium Oxide 400 MG TAB PO PRN ×2 (12:48)
[2017-07-25] MEDS ORDERED: Magnesium 2 GM/NS 0.9% 100 ML 2 GM in Premix Bag 1 BAG IVPB PRN (12:48)
[2017-07-25] MEDS ORDERED: Potassium Phosphate 12 MMOL in Sodium Chloride 0.9% 250 ML 250 ML IV PRN (12:48)
[2017-07-25] MEDS ORDERED: Potassium Phosphate 9 MMOL in Sodium Chloride 0.9% 100 ML IVPB PRN (12:48)
[2017-07-25] MEDS ORDERED: Potassium Chloride 40 MEQ in Sodium Chloride 0.9% 250 ML 250 ML IVPB PRN (12:48)
[2017-07-25] MEDS: Vancomycin HCl 25 MG/ML Oral PO SCH ×2 (14:49→22:24)
--- NOTE | 2017-07-25 15:04 | RAD ---
1 VIEW ABDOMEN: Date: 07/25/17 HISTORY: Dobbhoff feeding tube placement. FINDINGS: Dobbhoff feeding tube appears to be in the right lower lobe, likely due to endobronchial insertion. T he Dobbhoff feeding tube should be pulled back and reinserted in the appropriate position. Results of study discussed with Cherry, the patient's nurse, on 07/25/17 at 1442 hours. CODE CR. POS: [facility]
--- NOTE | 2017-07-25 15:13 | RAD ---
ABDOMEN 1 VIEW: HISTORY: A 72-year-old female with a history of Dobbhoff tube placement. COMPARISON: Earlier exam 07/25/17. FINDINGS: The Dobbhoff tube is now within the region of the distal stomach. There is evidence for vascular con gestion and probable bilateral pleural effusions. IMPRESSION: Dobbhoff tube in place with the tip in the distal stomach. Evidence for bilateral vascular congestio n and pleural effusions. POS: [facility]
[2017-07-25] MEDS: Fluticasone Propionate Nasal Spray 16 gm Bottle NASAL PRN (16:18)
[2017-07-25] MEDS ORDERED: Midazolam HCl 2 mg/2 ml Vial ONE (17:08)
[2017-07-25] MEDS ORDERED: Fentanyl 250 MCG/5 ML VIAL ONE (17:08)
[2017-07-25] MEDS ORDERED: Lidocaine 1% (PF) 30 ML VIAL ONE (17:41)
[2017-07-25] MEDS ORDERED: Bacitracin Zinc Ointment 30 gm TUBE ONE (17:41)
[2017-07-25] MEDS ORDERED: Bupivacaine PF 0.5% 30 ML VIAL ONE (17:41)
[2017-07-25] MEDS ORDERED: Sodium Chloride 0.9% 0 ML ONE (17:42)
[2017-07-25] MEDS ORDERED: Thrombin 5000 UNITS/5 ML VIAL ONE (17:42)
--- NOTE | 2017-07-25 18:03 | PRG ---
DATE OF SERVICE: 07/25/2017 SUBJECTIVE: Harjinder has developed diarrhea, C. diff test was positive. She is in the ICU and undergoi ng BiPAP therapy. PHYSICAL EXAMINATION: VITAL SIGNS: Temperature max 99.5, blood pressure 140/82, pulse 91-115, O2 saturations 100%. SKIN: Shows the areas of debridement of the right hand. There is a fresh healthy tissue at the base . There is an area of exposed tendon along the radial aspect of the forearm. No erythema is noted. LUNGS: With symmetric air entry, no wheezing. HEART: S1, S2, regular rate. ABDOMEN: Soft, no tenderness on palpation. Bowel sounds are not increased. LABORATORY DATA: White cell count is down to 15.7, hemoglobin 9.3, platelets 155, creatinine 0.70. C. diff positive in stool, both antigen and toxin. ASSESSMENT AND DISCUSSION: Streptococcus pyogenes necrotizing fasciitis, status post-surgical debrid ement with healthy-appearing tissue. Now, patient has developed C. diff pseudomembranous colitis. W e will continue on oral vancomycin, dose can be decreased to 250 mg 4 times a day or even less than t hat and clindamycin has already been discontinued.
[2017-07-25] MEDS ORDERED: Fentanyl 100 MCG/2 ML VIAL ONE ×2 (18:22→19:46)
[2017-07-25 18:34] LABS: Potassium 2.3 mmol/L (3.5-5.1)
--- NOTE | 2017-07-25 18:39 | PDOC.CTH ---
Cardiology Progress Note - Subjective No new issues. - Objective Vital Signs Temp Pulse Resp BP Pulse Ox 07/25/17 16:00 99.5 F 07/25/17 14:54 115 H 07/25/17 14:52 91 30 H 99 07/25/17 13:12 99.1 F 115 H 120 H 93 L 07/25/17 13:08 123 H 07/25/17 12:37 91 L 07/25/17 12:22 90 38 H 91 L 07/25/17 11:39 98.6 F 78 25 H 189/99 H 94 L 07/25/17 11:37 78 07/25/17 10:36 71 18 96 07/25/17 08:15 98.5 F 71 18 95 07/25/17 08:12 98.5 F 82 26 H 183/88 H 95 07/25/17 07:23 83 22 H 95 Admit Weight 190 lb Weight 219 lb 11.2 oz 07/24/17 07/25/17 07/26/17 06:59 06:59 06:59 Intake Total 992 1189 424 Output Total 3677 2102 1560 Balance -1495 -913 -2076 - Physical Examination General/Neuro: NAD Neck: no JVD present Lungs: unlabored respirations Heart: RRR Abdomen: NT/ND Extremities: + edema B (2+) - Telemetry Telemetry Rhythm: NSR - Labs Result Diagrams: 07/25/17 05:27 07/25/17 18:04 Troponin/CKMB CK-MB (CK-2) 3.2 ng/mL (0-6.6) 07/17/17 05:55 Troponin I Less than 0.010 ng/mL (< 0.028) 07/17/17 05:55 - Assessment/Plan 1. Afib RVR, currently in sinus. 2. Septic shock 3. Strep pyogenes bacteremia 4. Hand infection, primary source 5. Hypokalemia. 6. Mild LV dysfunction likely due to rapid afib. EF 40-45% 7. C-Diff colitis. - Acute systolic heart failure PLAN: - Continue IV amio and BB. Will switch to PO once Dobhoff tube in place and confirmed. - Replace K aggressively to above 4.0 - Full dose Lovenox for stroke prophylaxis. - She is developing pulmonary edema. She received a dose of IV lasix earlier today. Will evaluate in the morning see if she needs IV lasix tomorrow. - Abx per Dr. Whitaker.
[2017-07-25] MEDS ORDERED: Potassium Chloride 40 MEQ in Premix Bag 1 BAG IVPB SCH (19:00)
[2017-07-25] MEDS ORDERED: PROPOFOL 20 ML ONE (20:12)
[2017-07-25] MEDS: Pantoprazole 40 MG VIAL IVP SCH (21:25)
[2017-07-25] MEDS ORDERED: Acetaminophen 650 MG/20.3 ML UDCUP PO PRN (23:42)
[2017-07-26] MEDS: Vancomycin HCl 25 MG/ML Oral PO SCH ×4 (00:51→18:35)
[2017-07-26] MEDS: Metoprolol Tartrate 5 MG/5 ML VIAL IVP SCH ×2 (05:49→10:58)
[2017-07-26] MEDS: CEFAZOLIN/Water 2 GM/20 ML SYRINGE SLOW IVP SCH ×3 (05:49→21:23)
--- NOTE | 2017-07-26 06:04 | OP ---
DATE OF SURGERY: 07/25/2017 PREOPERATIVE DIAGNOSES: Open wound with resolving necrotizing fasciitis deep wound infection, previo us partial thumb amputation, and presently nonhealing wound. POSTOPERATIVE FINDINGS: 1. No gross infection. 2. No wound edge necrosis and minimal laceration at the palmar distal edge of the hand wound and to index finger where it is still soft, but the distal two-thirds of the pulse base of the distal phalan x on the palmar aspect and appears not to have restore circulation while the proximal and middle phal anx have at this point. PROCEDURES PERFORMED: Dressing change under TIVA anesthesia, on the sterile conditions without prep with 2 separate VACs total of greater than approximately 150 sq cm of VAC dressing change where white sponge used, tendons were found. INDICATIONS: The patient returns for to get on a , Saturday schedule for VAC dressing change w here she has had no fevers, but returned to the ICU because of possible blood pressure elevation at t his time as opposed to blood pressure hypotension. Did not have fever. White blood cell count decre ased from a high of 19,000 to 15,000, and she was slow to wean off steroids. DESCRIPTION OF PROCEDURE: After successful TIVA anesthesia, she was comfortable, we placed sterile d rapes, dried her wound area and removed a pleasant VAC. Then, we dried the wound area and began a se kassandra of VAC dressing change in the distal half, use a white sponge where there was tendon, small edge of bone, and covered this with black sponges in one continuous dressing because there was one contin uous skin loss. Then, we had excellent suction and leak potential that was less than 20% of the enti re green zone on the machine. The patient then had the three forearm compartments of these wounds connected with a palmar wound to the 2 dorsal wounds using a bridging technique where a one small white sponge was used, the rest were just black form. This also had excellent suction and less than 10% of green indicator on the VAC ma harshal for leak potential. She left the operating room without evidence of anesthetic or operative co mplication with both VACs and excellent suction.
[2017-07-26 06:17] LABS: #Basophils 0.1 thou/uL (0.0-0.2); #Lymphocytes 1.8 thou/uL (1.20-3.40); #Monocytes 0.5 thou/uL (0.11-0.59); #Neutrophils 9.3 thou/uL (1.40-6.50); %Basophils 0.6 % (0.0-1.0); %Eosinophils 0.4 % (0.0-10.0); %Lymphocytes 15.3 % (21.0-51.0); %Monocytes 3.9 % (0.0-10.0); %Neutrophils 79.8 % (42.0-75.0); Hemoglobin 9.5 g/dL (12.0-16.0); Mean Corpuscular HGB CONC 34.3 g/dL (32.0-36.0); Mean Corpuscular Hemoglobin 33.4 pg (27.0-31.0); Mean Corpuscular Volume 97.6 fl (81.0-99.0); Mean Platelet Volume 9.5 fL (7.4-10.4); Platelet Count 184 thou/uL (130-400); RBC Distribution Width 13.9 % (11.5-14.5); Red Blood Cell (RBC) Count 2.83 mill/uL (4.20-5.40); White Blood Cell (WBC) Count 11.6 thou/uL (4.8-10.8)
[2017-07-26 06:45] LABS: ALT (SGPT) 27 U/L (8-55); AST (SGOT) 46 U/L (5-34); Albumin 2.5 g/dL (3.4-4.8); Alkaline Phosphatase 113 U/L (40-150); Anion Gap 8 mmol/L (10-20); BUN (Urea Nitrogen) 24 mg/dL (9.8-20.1); Bilirubin, Total 0.9 mg/dL (0.2-1.2); Calc. Creatinine Clearance 121 mL/min (70-130); Calcium 7.8 mg/dL (7.8-10.44); Carbon Dioxide 34 mmol/L (23-31); Chloride 105 mmol/L (98-107); Estimated GFR-MDRD 88; Globulin 2.3 g/dL (2.4-3.5); Glucose 121 mg/dL (83-110); Magnesium 1.7 mg/dL (1.6-2.6); Phosphorus 2.5 mg/dL (2.3-4.7); Protein, Total 4.8 g/dL (6.0-8.3); Sodium 144 mmol/L (136-145)
[2017-07-26 06:53] LABS: Potassium 2.9 mmol/L (3.5-5.1)
--- NOTE | 2017-07-26 09:08 | PRG ---
DATE OF SERVICE: 07/26/2017 The patient is doing better today. She is off the BiPAP this morning. She is conversant. PHYSICAL EXAMINATION: VITAL SIGNS: Temperature 98.4, pulse 85, blood pressure 163/78. O2 saturation 100% on nasal cannula . 24 intake 1051, output 2385. HEENT: Unremarkable except for Dobbhoff tube. NECK: No JVD. LUNGS: Coarse breath sounds. CARDIAC: S1 and S2 regular. ABDOMEN: Soft, nontender. EXTREMITIES: She has a bandage over her left arm. LABORATORY DATA: Sodium 144, potassium 2.9, chloride 105, CO2 34, BUN 24, creatinine 0.6, glucose 12 1, AST 46, ALT 27, albumin 2.5, white blood cell count 11.6, hematocrit 27.7, platelet count 184. ASSESSMENT: 1. Clostridium difficile colitis. 2. Necrotizing fasciitis. 3. Status post amputation distal forearm and fasciotomy. 4. Status post acute respiratory failure requiring mechanical ventilation. PLAN: 1. Leave off BiPAP as tolerated. Continue oral vancomycin, but decrease the dose to 250 mg q.6 hour s. 2. Leave in ICU until she is more mobile.
--- NOTE | 2017-07-26 09:23 | PDOC.PN ---
- Subjective Encounter Start Date: 07/26/17 Encounter Start Time: 09:21 Subjective: less sob, diarrhea decreased - Objective Resuscitation Status: Resuscitation Status FULL:Full Resuscitation MAR Reviewed: Yes Vital Signs & Weight: Vital Signs (12 hours) Temp Pulse Resp Pulse Ox 07/26/17 06:40 72 07/26/17 06:38 75 24 H 100 07/26/17 04:00 98.4 F 07/26/17 03:04 79 07/26/17 01:45 76 20 10 L 07/26/17 00:00 98.0 F 07/25/17 22:26 76 07/25/17 22:24 78 24 H 100 Weight Admit Weight 190 lb Weight 219 lb 11.2 oz Most Recent Monitor Data Heart Rate from ECG 75 NIBP 163/78 NIBP BP-Mean 92 Respiration from ECG 23 SpO2 100 I&O: 07/25/17 07/26/17 07/27/17 06:59 06:59 06:59 Intake Total 1189 1051 Output Total 2106 7155 Balance -913 -3474 Result Diagrams: 07/26/17 05:50 07/26/17 05:50 Additional Labs: Accuchecks 07/25/17 11:44 POC Glucose 165 H Phys Exam - Physical Examination Neck: no JVD Respiratory: clear to auscultation bilateral Cardiovascular: RRR, no significant murmur Gastrointestinal: soft, non-tender, positive bowel sounds Musculoskeletal: edema present Dx/Plan (1) HENRIETTA (acute kidney injury) Code(s): N17.9 - ACUTE KIDNEY FAILURE, UNSPECIFIED Status: Resolved Comment : Avoid nephrotoxic meds and limit contrast exposure, serial creatinine, follow I/O's and daily weight (2) Acute respiratory failure with hypoxia Code(s): J96.01 - ACUTE RESPIRATORY FAILURE WITH HYPOXIA Status: Resolved Comment: Continue SIMV at 40%, Rate 22, am ABG, PCXR, continue aggressive pulm support (3) Atrial fibrillation with RVR Code(s): I48.91 - UNSPECIFIED ATRIAL FIBRILLATION Status: Acute Comment: Continue rate control measures with IV Amiodarone (4) Necrotizing fasciitis due to Streptococcus pyogenes Code(s): M72.6 - NECROTIZING FASCIITIS; B95.0 - STREPTOCOCCUS, GROUP A, CAUSING DISEASES CLASSD ELSWHR Status: Acute Comment: Continue IV Ancef and Clindamycin, wound vac in place post-debridement (5) Septic shock Code(s): A41.9 - SEPSIS, UNSPECIFIED ORGANISM; R65.21 - SEVERE SEPSIS WITH SEPTIC SHOCK Status: Acute Comment: Continue Levophed and Vasopressin, IVF's , avoid antihypertensives, Hydrocortisone 50mg IV q6h (6) Hypertension Code(s): I10 - ESSENTIAL (PRIMARY) HYPERTENSION Status: Chronic Qualifiers: Hypertension type: essential hypertension Qualified Code(s): I10 - Essential (primary) hypertension (7) Dyslipidemia Code(s): E78.5 - HYPERLIPIDEMIA, UNSPECIFIED Status: Chronic (8) Cardiomyopathy Code(s): I42.9 - CARDIOMYOPATHY, UNSPECIFIED Status: Acute Qualifiers: Cardiomyopathy type: unspecified Qualified Code(s): I42.9 - Cardiomyopathy , unspecified (9) Atrial fibrillation with controlled ventricular response Code(s): I48.91 - UNSPECIFIED ATRIAL FIBRILLATION Status: Resolved (10) Diarrhea Code(s): R19.7 - DIARRHEA, UNSPECIFIED Status: Acute Qualifiers: Diarrhea type: unspecified type Qualified Code(s): R19.7 - Diarrhea, unspecified (11) Colitis due to Clostridium difficile Status: Acute (12) Respiratory alkalosis Code(s): E87.3 - ALKALOSIS Status: Acute (13) Hypokalemia Code(s): E87.6 - HYPOKALEMIA Status: Acute - Plan cont po vancomcin for C dff -: transition amiodarone, metoprolol to tube -: check with speech tx about need for tube -: agresive K+ replacement * .
[2017-07-26] MEDS: Morphine 4 MG/ML VIAL SLOW IVP PRN ×2 (10:17→22:04)
[2017-07-26] MEDS: Hydrocortisone Sod Succ/PF 100 mg/2 ml Vial IVP SCH ×2 (10:18→21:22)
[2017-07-26] MEDS: Enoxaparin Sodium 100 MG/ML SYRINGE SC SCH ×2 (10:19→21:22)
[2017-07-26] MEDS: Amiodarone HCl 450 MG, Admixture Fee 1 EACH in Dextrose 5% in Water 250 ML IVPB SCH (10:29)
--- NOTE | 2017-07-26 13:24 | PDOC.CTH ---
Cardiology Progress Note - Subjective She is doing better. She is talking now. - Objective Vital Signs Temp Pulse Resp Pulse Ox 07/26/17 10:33 82 29 H 94 L 07/26/17 06:40 72 07/26/17 06:38 75 24 H 100 07/26/17 04:00 98.4 F 07/26/17 03:04 79 07/26/17 01:45 76 20 10 L Admit Weight 190 lb Weight 219 lb 11.2 oz 07/25/17 07/26/17 07/27/17 06:59 06:59 06:59 Intake Total 1189 1051 Output Total 2102 2285 Balance -913 -1234 - Physical Examination General/Neuro: alert & oriented x3, NAD Neck: no JVD present Lungs: unlabored respirations, other: (Coarse bilat. ) Heart: RRR Abdomen: NT/ND Extremities: + edema B (1+) - Telemetry Telemetry Rhythm: NSR - Labs Result Diagrams: 07/26/17 05:50 07/26/17 05:50 Troponin/CKMB CK-MB (CK-2) 3.2 ng/mL (0-6.6) 07/17/17 05:55 Troponin I Less than 0.010 ng/mL (< 0.028) 07/17/17 05:55 - Assessment/Plan 1. Afib RVR, currently in sinus. 2. Septic shock, resolved. 3. Strep pyogenes bacteremia. 4. Hand infection, primary source 5. Hypokalemia. 6. Mild LV dysfunction likely due to rapid afib. EF 40-45% 7. C-Diff colitis. 8. Acute systolic heart failure, improved. PLAN: - Will switch to PO amio and BB. - Replace K aggressively to above 4.0 - Full dose Lovenox for stroke prophylaxis. - One more dose IV lasix. - Abx per Dr. Whitaker.
[2017-07-26] MEDS ORDERED: Potassium Chloride 20 MEQ TAB PO SCH ×2 (13:30→17:30)
[2017-07-26 13:37] LABS: Potassium 2.9 mmol/L (3.5-5.1)
[2017-07-26] MEDS: Potassium Chloride 40 MEQ in Premix Bag 1 BAG IVPB PRN ×2 (13:52→21:22)
[2017-07-26] MEDS: Pantoprazole 40 MG VIAL IVP SCH (21:22)
[2017-07-26] MEDS: Amiodarone 200 MG TAB PO SCH (21:23)
[2017-07-27] MEDS: Vancomycin HCl 25 MG/ML Oral PO SCH ×4 (00:45→17:17)
[2017-07-27 05:04] LABS: #Lymphocytes 1.3 thou/uL (1.20-3.40); #Monocytes 0.4 thou/uL (0.11-0.59); #Neutrophils 7.6 thou/uL (1.40-6.50); %Basophils 0.1 % (0.0-1.0); %Eosinophils 0.5 % (0.0-10.0); %Lymphocytes 13.6 % (21.0-51.0); %Monocytes 3.9 % (0.0-10.0); Hemoglobin 9.8 g/dL (12.0-16.0); Mean Corpuscular HGB CONC 34.1 g/dL (32.0-36.0); Mean Corpuscular Hemoglobin 33.7 pg (27.0-31.0); Mean Corpuscular Volume 98.9 fl (81.0-99.0); Mean Platelet Volume 9.2 fL (7.4-10.4); Platelet Count 200 thou/uL (130-400); Red Blood Cell (RBC) Count 2.91 mill/uL (4.20-5.40); White Blood Cell (WBC) Count 9.3 thou/uL (4.8-10.8)
[2017-07-27 05:23] LABS: ALT (SGPT) 22 U/L (8-55); AST (SGOT) 48 U/L (5-34); Albumin 2.6 g/dL (3.4-4.8); Alkaline Phosphatase 108 U/L (40-150); Anion Gap 9 mmol/L (10-20); BUN (Urea Nitrogen) 19 mg/dL (9.8-20.1); Bilirubin, Total 0.9 mg/dL (0.2-1.2); Calc. Creatinine Clearance 136 mL/min (70-130); Calcium 7.6 mg/dL (7.8-10.44); Carbon Dioxide 31 mmol/L (23-31); Chloride 103 mmol/L (98-107); Estimated GFR-MDRD Greater than 90; Globulin 2.4 g/dL (2.4-3.5); Glucose 103 mg/dL (83-110); Magnesium 1.7 mg/dL (1.6-2.6); Phosphorus 2.4 mg/dL (2.3-4.7); Potassium 3.3 mmol/L (3.5-5.1); Sodium 140 mmol/L (136-145)
[2017-07-27] MEDS: CEFAZOLIN/Water 2 GM/20 ML SYRINGE SLOW IVP SCH ×3 (06:05→22:49)
[2017-07-27] MEDS: Potassium Chloride 40 MEQ in Premix Bag 1 BAG IVPB PRN (06:06)
[2017-07-27] MEDS: Amiodarone 200 MG TAB PO SCH ×2 (07:57→22:49)
[2017-07-27] MEDS: Enoxaparin Sodium 100 MG/ML SYRINGE SC SCH ×2 (07:58→22:49)
[2017-07-27] MEDS: Hydrocortisone Sod Succ/PF 100 mg/2 ml Vial IVP SCH ×2 (07:58→22:49)
[2017-07-27] MEDS: Morphine 4 MG/ML VIAL SLOW IVP PRN ×2 (08:06→17:22)
[2017-07-27] MEDS: hydrALAZINE 20 MG/ML VIAL SLOW IVP PRN (09:37)
[2017-07-27] MEDS ORDERED: Sodium Chloride 0.65% Nasal 44 ML BOT EA NARE PRN (11:34)
[2017-07-27] MEDS ORDERED: Metoprolol Tartrate 50 MG TAB PO SCH (12:00)
--- NOTE | 2017-07-27 12:02 | PDOC.PN ---
- Subjective Encounter Start Date: 07/27/17 Encounter Start Time: 12:01 Subjective: no diarrhea, weak, pain in surgical site - Objective Resuscitation Status: Resuscitation Status FULL:Full Resuscitation MAR Reviewed: Yes Vital Signs & Weight: Vital Signs (12 hours) Temp Pulse Resp BP Pulse Ox 07/27/17 09:54 92 21 H 95 07/27/17 09:37 88 206/93 H 07/27/17 07:00 97.6 F 07/27/17 06:11 88 22 H 94 L 07/27/17 04:00 98.4 F 07/27/17 02:25 84 16 100 Weight Admit Weight 190 lb Weight 219 lb 11.2 oz Most Recent Monitor Data Heart Rate from ECG 84 NIBP 185/87 NIBP BP-Mean 108 Respiration from ECG 23 SpO2 100 I&O: 07/26/17 07/27/17 07/28/17 06:59 06:59 06:59 Intake Total 1051 682.1 Output Total 2285 3235 310 Balance -1234 -2552.9 -310 Result Diagrams: 07/27/17 04:20 07/27/17 04:20 Additional Labs: Accuchecks 07/27/17 07/27/17 07/26/17 11:34 04:30 21:27 POC Glucose 101 101 90 07/26/17 18:44 POC Glucose 89 Phys Exam - Physical Examination Neck: no JVD Respiratory: clear to auscultation bilateral Cardiovascular: RRR, no significant murmur Gastrointestinal: soft, non-tender, positive bowel sounds Musculoskeletal: edema present Dx/Plan (1) HENRIETTA (acute kidney injury) Code(s): N17.9 - ACUTE KIDNEY FAILURE, UNSPECIFIED Status: Resolved Comment : Avoid nephrotoxic meds and limit contrast exposure, serial creatinine, follow I/O's and daily weight (2) Acute respiratory failure with hypoxia Code(s): J96.01 - ACUTE RESPIRATORY FAILURE WITH HYPOXIA Status: Resolved Comment: Continue SIMV at 40%, Rate 22, am ABG, PCXR, continue aggressive pulm support (3) Atrial fibrillation with RVR Code(s): I48.91 - UNSPECIFIED ATRIAL FIBRILLATION Status: Acute Comment: Continue rate control measures with IV Amiodarone (4) Necrotizing fasciitis due to Streptococcus pyogenes Code(s): M72.6 - NECROTIZING FASCIITIS; B95.0 - STREPTOCOCCUS, GROUP A, CAUSING DISEASES CLASSD ELSWHR Status: Acute Comment: Continue IV Ancef and Clindamycin, wound vac in place post-debridement (5) Septic shock Code(s): A41.9 - SEPSIS, UNSPECIFIED ORGANISM; R65.21 - SEVERE SEPSIS WITH SEPTIC SHOCK Status: Acute Comment: Continue Levophed and Vasopressin, IVF's , avoid antihypertensives, Hydrocortisone 50mg IV q6h (6) Hypertension Code(s): I10 - ESSENTIAL (PRIMARY) HYPERTENSION Status: Chronic Qualifiers: Hypertension type: essential hypertension Qualified Code(s): I10 - Essential (primary) hypertension (7) Dyslipidemia Code(s): E78.5 - HYPERLIPIDEMIA, UNSPECIFIED Status: Chronic (8) Cardiomyopathy Code(s): I42.9 - CARDIOMYOPATHY, UNSPECIFIED Status: Acute Qualifiers: Cardiomyopathy type: unspecified Qualified Code(s): I42.9 - Cardiomyopathy , unspecified (9) Atrial fibrillation with controlled ventricular response Code(s): I48.91 - UNSPECIFIED ATRIAL FIBRILLATION Status: Resolved (10) Diarrhea Code(s): R19.7 - DIARRHEA, UNSPECIFIED Status: Acute Qualifiers: Diarrhea type: unspecified type Qualified Code(s): R19.7 - Diarrhea, unspecified (11) Colitis due to Clostridium difficile Status: Acute (12) Respiratory alkalosis Code(s): E87.3 - ALKALOSIS Status: Acute (13) Hypokalemia Code(s): E87.6 - HYPOKALEMIA Status: Acute - Plan cont MS for pain -: cont po vancomycin for C diff -: cont iv antibx for sepsis, bacteremia -: po b-kelsey, amiodarone -: discuss with financial wellness coach * .
[2017-07-27] MEDS ORDERED: Spironolactone 25 MG TAB PO SCH (16:15)
--- NOTE | 2017-07-27 16:36 | PRG ---
DATE OF SERVICE: 07/27/2017 SUBJECTIVE: Harjinder feels well. She is awake and alert, no chest pain or pressure. OBJECTIVE: VITAL SIGNS: Blood pressure earlier was high 206/90. LUNGS: Clear. CARDIAC: Normal S1, normal S2. ABDOMEN: Soft, nontender. EXTREMITIES: Mild edema. The potassium is improved at 3.3. She received potassium after that. ASSESSMENT: 1. Paroxysmal atrial fibrillation. 2. Hypertension. 3. Hypokalemia. PLAN: 1. We will add spironolactone 25 mg a day should help with blood pressure and potassium. 2. She is on amiodarone and enoxaparin.
--- NOTE | 2017-07-27 21:52 | PRG ---
DATE OF SERVICE: 07/27/2017 SUBJECTIVE: Ms. Grande is afebrile. OBJECTIVE: VITAL SIGNS: Heart rates in the 80s, respirations 20, his oximetry is 97 on room air. LUNGS: Clear. HEART: Regular rhythm. ABDOMEN: Soft. EXTREMITIES: Without asymmetry. Her left upper extremity is bandaged. LABORATORY DATA: White count 9.3, hemoglobin 9.8, platelets 200,000. Sodium 140, potassium 3.3, chloride 103, bicarbonate 31, BUN 19, creatinine 0.59. All of her wound cultures grew strep pyogenes, but surprisingly her blood cultures did not. IMPRESSION: 1. Streptococcus pyogenes fasciitis status post amputation of her thumb, clinically stable. 2. Paroxysmal atrial fibrillation. 3. Hypertension. 4. Hypokalemia. PLAN: She was started back on Lopressor today 50 mg twice a day. She was on beta kelsey before. C jon critical care management.
[2017-07-27] MEDS: Pantoprazole 40 MG VIAL IVP SCH (22:49)
[2017-07-27] MEDS: Metoprolol Tartrate 50 MG TAB PO SCH (22:49)
[2017-07-27] MEDS: Fluticasone Propionate Nasal Spray 16 gm Bottle NASAL PRN (22:54)
[2017-07-28] MEDS: Vancomycin HCl 25 MG/ML Oral PO SCH ×4 (00:15→21:14)
[2017-07-28] MEDS: CEFAZOLIN/Water 2 GM/20 ML SYRINGE SLOW IVP SCH ×3 (05:32→22:32)
[2017-07-28 05:54] LABS: #Lymphocytes 1.3 thou/uL (1.20-3.40); #Monocytes 0.4 thou/uL (0.11-0.59); #Neutrophils 5.4 thou/uL (1.40-6.50); %Basophils 0.1 % (0.0-1.0); %Eosinophils 0.5 % (0.0-10.0); %Lymphocytes 18.2 % (21.0-51.0); %Monocytes 5.3 % (0.0-10.0); %Neutrophils 75.9 % (42.0-75.0); Hemoglobin 9.6 g/dL (12.0-16.0); Mean Corpuscular HGB CONC 34.2 g/dL (32.0-36.0); Mean Corpuscular Hemoglobin 34.1 pg (27.0-31.0); Mean Corpuscular Volume 99.7 fl (81.0-99.0); Mean Platelet Volume 9.1 fL (7.4-10.4); Platelet Count 236 thou/uL (130-400); White Blood Cell (WBC) Count 7.1 thou/uL (4.8-10.8)
[2017-07-28 06:04] LABS: ALT (SGPT) 20 U/L (8-55); AST (SGOT) 45 U/L (5-34); Albumin 2.6 g/dL (3.4-4.8); Alkaline Phosphatase 96 U/L (40-150); Anion Gap 9 mmol/L (10-20); BUN (Urea Nitrogen) 17 mg/dL (9.8-20.1); Bilirubin, Total 0.8 mg/dL (0.2-1.2); Calc. Creatinine Clearance 136 mL/min (70-130); Calcium 7.5 mg/dL (7.8-10.44); Carbon Dioxide 30 mmol/L (23-31); Chloride 104 mmol/L (98-107); Estimated GFR-MDRD Greater than 90; Globulin 2.3 g/dL (2.4-3.5); Glucose 116 mg/dL (83-110); Magnesium 1.6 mg/dL (1.6-2.6); Phosphorus 2.7 mg/dL (2.3-4.7); Potassium 3.2 mmol/L (3.5-5.1); Protein, Total 4.9 g/dL (6.0-8.3); Sodium 140 mmol/L (136-145)
[2017-07-28] MEDS: Potassium Chloride 40 MEQ in Premix Bag 1 BAG IVPB PRN (08:04)
[2017-07-28] MEDS: Morphine 4 MG/ML VIAL SLOW IVP PRN ×3 (08:55→21:37)
[2017-07-28] MEDS: Enoxaparin Sodium 100 MG/ML SYRINGE SC SCH ×2 (09:41→09:47)
[2017-07-28] MEDS: Metoprolol Tartrate 50 MG TAB PO SCH ×2 (09:41→21:15)
[2017-07-28] MEDS: Amiodarone 200 MG TAB PO SCH ×2 (09:41→21:15)
[2017-07-28] MEDS: Spironolactone 25 MG TAB PO SCH (09:41)
[2017-07-28] MEDS: Hydrocortisone Sod Succ/PF 100 mg/2 ml Vial IVP SCH ×2 (09:42→21:16)
[2017-07-28] MEDS ORDERED: Potassium Chloride 20 MEQ TAB PO SCH (10:45)
[2017-07-28] MEDS ORDERED: Furosemide 20 MG/2 ML VIAL SLOW IVP SCH (10:45)
--- NOTE | 2017-07-28 11:39 | PRG ---
DATE OF SERVICE: 07/28/2017 SUBJECTIVE: Ms. Grande is doing better. She is sitting up in a chair. Feels well. OBJECTIVE: VITAL SIGNS: Blood pressure is high 188/80, pulse 92 and sinus. LUNGS: Clear. CARDIAC: Normal S1, S2. EXTREMITIES: Left hand is bandaged. There is oozing and bleeding through the gauze. ASSESSMENT: 1. Paroxysmal atrial fibrillation, maintaining sinus rhythm. 2. Oozing from the gauze, Lovenox had to be held. 3. Hypertension. PLAN: 1. We will give her a single dose of furosemide. I think this will probably help her blood pressure . 2. Continue beta blockers. 3. Dr. Trevino to return tomorrow to continue care.
--- NOTE | 2017-07-28 13:34 | PRG ---
DATE OF SERVICE: 07/27/2017 SUBJECTIVE: Ms. Grande is feeling better. She has a Dobbhoff for nutritional input in place and area s of negative pressure dressing in the left upper extremity, following debridement of necrotizing fas ciitis. She is much more comfortably at rest. Her voice is unimpeded. She is breathing without any evidence of labor. Denies any chest pain or cough. No abdominal pain. She has developed sore thro at particularly on the right side over the past few days. OBJECTIVE: VITAL SIGNS: Showed normal temperature throughout. Other vital signs are not remarkable. O2 sats a re 98%-100% range on room air. SKIN EXAM: Shows the Dobhoff in the left, negative pressure dressing in the left upper extremity and a central line. LUNGS: Clear to auscultation and percussion. ABDOMEN: Soft and not distended. EXTREMITIES: She is able to move extremities with limitations imposed by the inflammatory process an d surgical debridement of left upper extremity. NEUROLOGIC: Cognitive function appears to be much improved. LABORATORY DATA: White cell count of 9.3, hemoglobin 9.8, platelets 200, 82% neutrophils and creatin ine 0.59. Liver profile normal. ASSESSMENT AND DISCUSSION: Group A strep necrotizing fasciitis, left upper extremity with the surgic al debridements and an aggressive management in the ICU with marked improvement. C. difficile coliti s following a few days of admission to the unit and now she has herpes simplex stomatitis identified in the oral exam. We will add acyclovir 5 mg/kg IV to the regimen. Continue cefazolin. I do not th ink she is going to require long-term treatment with cefazolin and probably will be able to discontin ue it in the next few days.
--- NOTE | 2017-07-28 13:50 | PRG ---
DATE OF SERVICE: 07/28/2017 SUBJECTIVE: Ms. Chrystal Grande is bleeding out through her dressing this morning. We have held her Lovenox this morning, actually discontinued it since she is in sinus rhythm and if s he get down the road, she is in and out of atrial fibrillation, we can always restart it. OBJECTIVE: VITAL SIGNS: Heart rate is 84, respiratory rate is 22, oximetry is 97 on room air, blood pressure 16 6/72. LUNGS: Clear. HEART: Regular rhythm. ABDOMEN: Soft. EXTREMITIES: Without asymmetry or edema. LABORATORY DATA: White count 7.1, hemoglobin 9.6, platelets 236. Sodium 140, potassium 3.2, chloride 104, bicarbonate 30, BUN 70, creatinine 0.59. IMPRESSION: 1. Status post strep pyogenes hand infection requiring multiple surgeries and thumb amputation. 2. Bleeding from her wound most likely related to Lovenox. 3. History of paroxysmal atrial fibrillation. 4. Blood loss anemia that is stable. 5. History of hypertension. PLAN: Continue with her antihypertensives, continue with the wound care. Continue with critical car e unit. She is getting close to being stable enough to move out, but apparently has moved out once t he room was too hot, could not be controlled. She had a panic attack and so she was moved back into the Critical Care Unit. Intermediate care may be an option where at the third floor, but she really needs to monitor with her history of atrial fibrillation.
[2017-07-28] MEDS ORDERED: Labetalol HCl 100 MG/20 ML VIAL SLOW IVP PRN (15:41)
--- NOTE | 2017-07-28 16:21 | PDOC.PN ---
- Subjective Encounter Start Date: 07/28/17 Encounter Start Time: 16:19 Patient seen and examined, no new issues or complaints, family at bedside, all questions answered. - Objective Resuscitation Status: Resuscitation Status FULL:Full Resuscitation Vital Signs & Weight: Vital Signs (12 hours) Temp Pulse Resp Pulse Ox 07/28/17 12:00 99.7 F H 07/28/17 11:00 90 24 H 100 07/28/17 08:00 99.8 F H 92 22 H 2 L 07/28/17 07:11 98 07/28/17 07:08 84 22 H 97 Weight Admit Weight 190 lb Weight 210 lb 1.608 oz Most Recent Monitor Data Heart Rate from ECG 93 NIBP 184/90 NIBP BP-Mean 109 Respiration from ECG 21 SpO2 98 I&O: 07/27/17 07/28/17 07/29/17 06:59 06:59 06:59 Intake Total 682.1 1149.5 440 Output Total 3235 2405 750 Balance -2552.9 -1255.5 -310 Result Diagrams: 07/28/17 05:30 07/28/17 05:30 Additional Labs: Accuchecks 07/28/17 07/28/17 07/28/17 16:04 11:51 05:31 POC Glucose 93 101 111 H 07/27/17 17:18 POC Glucose 91 Phys Exam - Physical Examination Constitutional: NAD HEENT: PERRLA, moist MMs, sclera anicteric herpetic lesions in oral cavity? Neck: no nodes, no JVD, supple Respiratory: no wheezing, no rales, no rhonchi Cardiovascular: RRR, no significant murmur, no rub Gastrointestinal: soft, non-tender, no distention Musculoskeletal: pulses present, edema present LUE in bandage with wound vac Neurological: non-focal, normal sensation Psychiatric: normal affect, A&O x 3 Dx/Plan (1) Necrotizing fasciitis Code(s): M72.6 - NECROTIZING FASCIITIS Status: Acute (2) Abscess of left hand Code(s): L02.512 - CUTANEOUS ABSCESS OF LEFT HAND Status: Acute Comment: s/ p I&D #1 5/2, to OR for #2 this afternoon. (3) Atrial fibrillation with RVR Code(s): I48.91 - UNSPECIFIED ATRIAL FIBRILLATION Status: Acute Comment: Continue rate control measures with IV Amiodarone (4) Cardiomyopathy Code(s): I42.9 - CARDIOMYOPATHY, UNSPECIFIED Status: Acute Qualifiers: Cardiomyopathy type: unspecified Qualified Code(s): I42.9 - Cardiomyopathy , unspecified (5) Cellulitis of left forearm Code(s): L03.114 - CELLULITIS OF LEFT UPPER LIMB Status: Acute (6) Colitis due to Clostridium difficile Status: Acute (7) Diarrhea Code(s): R19.7 - DIARRHEA, UNSPECIFIED Status: Acute Qualifiers: Diarrhea type: unspecified type Qualified Code(s): R19.7 - Diarrhea, unspecified (8) Hypertension Code(s): I10 - ESSENTIAL (PRIMARY) HYPERTENSION Status: Chronic Qualifiers: Hypertension type: essential hypertension Qualified Code(s): I10 - Essential (primary) hypertension (9) HENRIETTA (acute kidney injury) Code(s): N17.9 - ACUTE KIDNEY FAILURE, UNSPECIFIED Status: Resolved Comment : Avoid nephrotoxic meds and limit contrast exposure, serial creatinine, follow I/O's and daily weight - Plan * Acyclovir started by ID for probable herpetic infection * cont other abx for now for wound infection as well as C-diff * wound vac in place * vital signs stable * further management per subspecialists * patient is progressing well * case and plan d/w patient and family at length, they understand and agree with this plan
[2017-07-28] MEDS: Pantoprazole 40 MG VIAL IVP SCH (21:16)
[2017-07-29] MEDS: Vancomycin HCl 25 MG/ML Oral PO SCH ×6 (01:06→23:58)
[2017-07-29 04:46] LABS: #Lymphocytes 1.4 thou/uL (1.20-3.40); #Monocytes 0.4 thou/uL (0.11-0.59); #Neutrophils 4.4 thou/uL (1.40-6.50); %Basophils 0.6 % (0.0-1.0); %Eosinophils 0.5 % (0.0-10.0); %Lymphocytes 22.7 % (21.0-51.0); %Monocytes 6.2 % (0.0-10.0); %Neutrophils 70.1 % (42.0-75.0); Hemoglobin 8.9 g/dL (12.0-16.0); Mean Corpuscular HGB CONC 33.7 g/dL (32.0-36.0); Mean Corpuscular Hemoglobin 34.2 pg (27.0-31.0); Mean Platelet Volume 8.1 fL (7.4-10.4); Platelet Count 230 thou/uL (130-400); RBC Distribution Width 14.1 % (11.5-14.5); Red Blood Cell (RBC) Count 2.59 mill/uL (4.20-5.40); White Blood Cell (WBC) Count 6.3 thou/uL (4.8-10.8)
[2017-07-29 05:12] LABS: ALT (SGPT) 17 U/L (8-55); AST (SGOT) 38 U/L (5-34); Albumin 2.6 g/dL (3.4-4.8); Alkaline Phosphatase 84 U/L (40-150); Anion Gap 8 mmol/L (10-20); BUN (Urea Nitrogen) 19 mg/dL (9.8-20.1); Bilirubin, Total 0.7 mg/dL (0.2-1.2); Calc. Creatinine Clearance 121 mL/min (70-130); Calcium 7.7 mg/dL (7.8-10.44); Carbon Dioxide 29 mmol/L (23-31); Chloride 106 mmol/L (98-107); Estimated GFR-MDRD Greater than 90; Globulin 2.3 g/dL (2.4-3.5); Glucose 101 mg/dL (83-110); Magnesium 1.7 mg/dL (1.6-2.6); Phosphorus 3.2 mg/dL (2.3-4.7); Potassium 3.8 mmol/L (3.5-5.1); Protein, Total 4.9 g/dL (6.0-8.3); Sodium 139 mmol/L (136-145)
[2017-07-29] MEDS: CEFAZOLIN/Water 2 GM/20 ML SYRINGE SLOW IVP SCH ×3 (05:42→23:59)
[2017-07-29] MEDS: Morphine 4 MG/ML VIAL SLOW IVP PRN ×2 (05:49→15:42)
--- NOTE | 2017-07-29 07:41 | PRG ---
DATE OF SERVICE: 07/29/2017 SUBJECTIVE: The patient is doing well. She wants to get up and increase her activity. PHYSICAL EXAMINATION: VITAL SIGNS: Her temperature is 98.8, pulse 81, blood pressure 153/64. A 24-hour intake 149, output 2405. HEENT: Unremarkable. NECK: No JVD. CHEST: Clear without wheezing. CARDIAC: S1 and S2 regular. ABDOMEN: Soft. EXTREMITIES: She has a bandage over her left arm. LABORATORY DATA: White blood cell count 6.3, hematocrit 26.3, platelet count 230. Sodium 139, potas sium 3.8, chloride 106, CO2 29, BUN 19, creatinine 0.6, glucose 101. ASSESSMENT: 1. Necrotizing fasciitis. 2. Status post multiple episodes of acute respiratory failure. 3. Status post septic shock. PLAN: 1. She can move out to telemetry. 2. Restart anticoagulation when her bleeding risk has diminished from her hand - apparently she bled over the weekend. 3. Continue IV antibiotics per Dr. Whitaker. 4. Continue oral vancomycin for C. difficile colitis.
[2017-07-29] MEDS: Amiodarone 200 MG TAB PO SCH ×2 (08:16→23:58)
[2017-07-29] MEDS: Metoprolol Tartrate 50 MG TAB PO SCH ×2 (08:16→23:58)
[2017-07-29] MEDS: Hydrocortisone Sod Succ/PF 100 mg/2 ml Vial IVP SCH (08:16)
[2017-07-29] MEDS: Spironolactone 25 MG TAB PO SCH (08:16)
[2017-07-29] MEDS ORDERED: PROPOFOL 200 MG/20 ML VIAL ONE (11:22)
[2017-07-29] MEDS ORDERED: Lidocaine 1% PF 5 ML VIAL ONE (11:22)
[2017-07-29 11:40] VITALS: BMI 38.4
--- NOTE | 2017-07-29 15:10 | PDOC.PN ---
- Subjective Encounter Start Date: 07/29/17 Encounter Start Time: 10:00 Patient seen and examined, plan for OR today for closure of wound on LUE, no new issus or complaints, no family at bedside, all questions answered. - Objective Resuscitation Status: Resuscitation Status FULL:Full Resuscitation Vital Signs & Weight: Vital Signs (12 hours) Temp Pulse Resp Pulse Ox 07/29/17 08:00 98.5 F 83 18 98 07/29/17 07:19 99 07/29/17 07:00 98.5 F Weight Admit Weight 190 lb Weight 210 lb 1.608 oz Most Recent Monitor Data Heart Rate from ECG 83 NIBP 151/62 NIBP BP-Mean 80 Respiration from ECG 18 SpO2 94 I&O: 07/28/17 07/29/17 07/30/17 06:59 06:59 06:59 Intake Total 1149.5 1226.5 30 Output Total 2405 1915 350 Balance -1255.5 -688.5 -320 Result Diagrams: 07/29/17 04:42 07/29/17 04:42 Additional Labs: Accuchecks 07/29/17 07/28/17 12:12 16:04 POC Glucose 100 93 Phys Exam - Physical Examination Constitutional: NAD HEENT: PERRLA, moist MMs, sclera anicteric Neck: no nodes, no JVD, supple Respiratory: no wheezing, no rales Cardiovascular: RRR, no significant murmur, no rub Gastrointestinal: soft, non-tender, no distention Musculoskeletal: no edema, pulses present LUE wound vac present LUE in sling/bandage Neurological: non-focal, normal sensation Psychiatric: normal affect, A&O x 3 Dx/Plan (1) Necrotizing fasciitis Code(s): M72.6 - NECROTIZING FASCIITIS Status: Acute (2) Abscess of left hand Code(s): L02.512 - CUTANEOUS ABSCESS OF LEFT HAND Status: Acute Comment: s/ p I&D #1 /, to OR for #2 this afternoon. (3) Atrial fibrillation with RVR Code(s): I48.91 - UNSPECIFIED ATRIAL FIBRILLATION Status: Acute Comment: Continue rate control measures with IV Amiodarone (4) Cardiomyopathy Code(s): I42.9 - CARDIOMYOPATHY, UNSPECIFIED Status: Acute Qualifiers: Cardiomyopathy type: unspecified Qualified Code(s): I42.9 - Cardiomyopathy , unspecified (5) Cellulitis of left forearm Code(s): L03.114 - CELLULITIS OF LEFT UPPER LIMB Status: Acute (6) Colitis due to Clostridium difficile Status: Acute (7) Diarrhea Code(s): R19.7 - DIARRHEA, UNSPECIFIED Status: Acute Qualifiers: Diarrhea type: unspecified type Qualified Code(s): R19.7 - Diarrhea, unspecified (8) Hypertension Code(s): I10 - ESSENTIAL (PRIMARY) HYPERTENSION Status: Chronic Qualifiers: Hypertension type: essential hypertension Qualified Code(s): I10 - Essential (primary) hypertension (9) HENRIETTA (acute kidney injury) Code(s): N17.9 - ACUTE KIDNEY FAILURE, UNSPECIFIED Status: Resolved Comment : Avoid nephrotoxic meds and limit contrast exposure, serial creatinine, follow I/O's and daily weight - Plan * OR planned for today * continue all other medical plan of care w/o changes * ok to transfer to telemetry post surgery * case and plan d/w patient at length, she understands and agrees with this plan
--- NOTE | 2017-07-29 16:17 | PDOC.CTH ---
Cardiology Progress Note - Subjective She is dong much better. We had a normal conversation today, she is fully awake. No chest pain. - Objective Vital Signs Temp Pulse Resp Pulse Ox 07/29/17 12:00 98.5 F 07/29/17 08:00 98.5 F 83 18 98 07/29/17 07:19 99 07/29/17 07:00 98.5 F Admit Weight 190 lb Weight 210 lb 1.608 oz 07/28/17 07/29/17 07/30/17 06:59 06:59 06:59 Intake Total 1149.5 1226.5 30 Output Total 2405 1915 470 Balance -1255.5 -688.5 -440 - Physical Examination General/Neuro: alert & oriented x3, NAD Neck: no JVD present Lungs: CTA, unlabored respirations Heart: RRR Abdomen: NT/ND Extremities: + edema B (trace) - Telemetry Telemetry Rhythm: NSR - Labs Result Diagrams: 07/29/17 04:42 07/29/17 04:42 Troponin/CKMB CK-MB (CK-2) 3.2 ng/mL (0-6.6) 07/17/17 05:55 Troponin I Less than 0.010 ng/mL (< 0.028) 07/17/17 05:55 - Assessment/Plan 1. Afib RVR, currently in sinus. 2. Septic shock, resolved. 3. Strep pyogenes bacteremia. 4. Hand infection, primary source 5. Hypokalemia. 6. Mild LV dysfunction likely due to rapid afib. EF 40-45% 7. C-Diff colitis. 8. Acute systolic heart failure, improved. PLAN: - On PO amio and BB. - Lovenox on hold today as she will have surgery. - Will need Eliquis for stroke prophylaxis on discharge.
[2017-07-29] MEDS ORDERED: Fentanyl 100 MCG/2 ML VIAL ONE ×2 (17:11)
[2017-07-29] MEDS ORDERED: Midazolam HCl 2 mg/2 ml Vial ONE (17:11)
[2017-07-29] MEDS ORDERED: Bupivacaine PF 0.5% 30 ML VIAL ONE (17:15)
[2017-07-29] MEDS ORDERED: Thrombin 5000 UNITS/5 ML VIAL ONE (17:15)
[2017-07-29] MEDS ORDERED: Bacitracin Zinc Ointment 30 gm TUBE ONE (17:15)
[2017-07-29] MEDS ORDERED: Sodium Chloride 0.9% 30 ML ONE (17:15)
[2017-07-29] MEDS ORDERED: Propofol 1,000 MG/100 ML VIAL IV ONE (17:53)
[2017-07-29] MEDS ORDERED: Propofol 500 MG/50 ML VIAL ONE (20:12)
[2017-07-29] MEDS ORDERED: Promethazine HCl 25 MG/ML VIAL IM PRN ×2 (20:58→21:46)
[2017-07-29] MEDS ORDERED: Ondansetron HCl/PF 4 MG/2 ML Vial IVP PRN ×2 (20:58→21:46)
[2017-07-29] MEDS ORDERED: Promethazine HCl 25 MG/ML VIAL SLOW IVP PRN ×2 (20:58→21:46)
[2017-07-29] MEDS ORDERED: HYDROmorphone 0.5 MG/0.5 ML SYRINGE ONE ×4 (21:16→22:01)
[2017-07-29] MEDS ORDERED: HYDROmorphone 2 MG/ML VIAL SLOW IVP PRN (21:46)
[2017-07-30] MEDS: Morphine 4 MG/ML VIAL SLOW IVP PRN ×3 (00:15→10:26)
[2017-07-30] MEDS: Vancomycin HCl 25 MG/ML Oral PO SCH ×4 (04:47→23:27)
[2017-07-30 05:56] LABS: #Eosinphils 0.2 thou/uL (0.0-0.7); #Lymphocytes 1.5 thou/uL (1.20-3.40); #Monocytes 0.6 thou/uL (0.11-0.59); #Neutrophils 4.9 thou/uL (1.40-6.50); %Basophils 0.3 % (0.0-1.0); %Eosinophils 2.4 % (0.0-10.0); %Lymphocytes 20.7 % (21.0-51.0); %Monocytes 8.7 % (0.0-10.0); %Neutrophils 67.9 % (42.0-75.0); Hemoglobin 9.2 g/dL (12.0-16.0); Mean Corpuscular HGB CONC 33.2 g/dL (32.0-36.0); Mean Corpuscular Hemoglobin 33.5 pg (27.0-31.0); Mean Platelet Volume 8.6 fL (7.4-10.4); Platelet Count 265 thou/uL (130-400); RBC Distribution Width 14.1 % (11.5-14.5); Red Blood Cell (RBC) Count 2.76 mill/uL (4.20-5.40); White Blood Cell (WBC) Count 7.3 thou/uL (4.8-10.8)
[2017-07-30 06:18] LABS: ALT (SGPT) 17 U/L (8-55); AST (SGOT) 49 U/L (5-34); Albumin 2.7 g/dL (3.4-4.8); Alkaline Phosphatase 78 U/L (40-150); Anion Gap 8 mmol/L (10-20); BUN (Urea Nitrogen) 18 mg/dL (9.8-20.1); Bilirubin, Total 0.7 mg/dL (0.2-1.2); Calc. Creatinine Clearance 139 mL/min (70-130); Calcium 7.8 mg/dL (7.8-10.44); Carbon Dioxide 27 mmol/L (23-31); Chloride 106 mmol/L (98-107); Estimated GFR-MDRD Greater than 90; Globulin 2.4 g/dL (2.4-3.5); Glucose 80 mg/dL (83-110); Potassium 3.4 mmol/L (3.5-5.1); Protein, Total 5.1 g/dL (6.0-8.3); Sodium 138 mmol/L (136-145)
[2017-07-30] MEDS: CEFAZOLIN/Water 2 GM/20 ML SYRINGE SLOW IVP SCH ×3 (06:49→23:27)
--- NOTE | 2017-07-30 07:48 | OP ---
DATE OF PROCEDURE: 07/29/2017 PREOPERATIVE DIAGNOSES: Left thumb, hand, wrist, forearm and index finger wounds. POSTOPERATIVE DIAGNOSES: Left thumb hand, wrist, forearm and index finger wounds with findings of a minimal palmar distal phalanx index finger necrosis only dermal epidermal layer, not involving fat, s ubcutaneous tissue or exposing the tendon. PROCEDURES PERFORMED: 1. Debridement of wounds at the following sites; thumb, index finger, palmar wrist, dorsal wrist, fo rearm using the following techniques: A) Scissor technique; B) combination [place] blade, 11 blade k nife, tenotomy scissor, Hussain, curet and rongeur included at the thumb, some bone in the surfa ce that was exposed. Necrosis was found only at the thumb, at the index finger, distal phalanx over a 1 cm long area not involving the proximal phalangeal joint. The depth was down to and including b one at the thumb. 2. Closure, layer, over the forearm following wound dimensions 12 x 6, 8 x 2 and 6 x 2 wounds, 2 at the forearm. At the hand a 4 x 2 cm wound. 3. Split-thickness skin graft harvested from the lateral thigh. A total of 8 x 2 cm at the wrist gi steve a 25 x 8 cm in the forearm, arm, wrist and palm. 4. Application of 2 x 2 cm distal left thumb palmar region and dorsal region. Integra graft that wa s 2 x2. ESTIMATED BLOOD LOSS: 25 mL or less. TOURNIQUET TIME: None. SURGEON: Darwin Whalen M.D. FINDINGS: On the index finger palmar distal third had some minimal necrosis at the wound edge. DESCRIPTION OF PROCEDURE: After successful general LMA technique, the limb was prepped and draped. _ ____ stageable management at this time, hopefully since her white blood cell count was normal. She was nearly off the steroids, and she responded clinically respiratory-wilde. She was a good candidate . For this reason, she had a timeout done appropriately, the limb was prepped and draped after she h ad appropriate anesthesia and we had already moved to address this. We then evaluated each wound on its own merit, just wound edge debridement minimal at the primary incisions, found that the necrosis was nearly wet gangrene over a 1 cm area on the palmar distal phalanx, 5 mm from the nail bed edge of the index finger. This was resected using combination of [place] blade, 11 blade knife until we had some bleeding tissue. The peritenon was not exposed and neither was the joint, so it will be a skin graft candidate. Likewise, all of the wounds underwent similar debridement techniques as described a zhanna and then without tourniquet, we began first by covering the distal wound with a moist sponge nor mal saline soaked. Then we performed debridement and wound closure listed above on the three proxima l wounds and they could all be close independently because of some redundant skin without evidence of complications or excessive force. We did find the patient had a palmar wound on the wrist and forea rm that was partially closeable where the skin was found over to of almost 10 x 3 cm. Once we had done this, we adjusted dimensions of all wounds added up to be the amount given in the pr e and post-op diagnoses above and then we began systematically harvesting an appropriate size split-t hickness skin graft. Depth was 0.20 setting, the graft harvested according to the size of the wound and cut into appropriate positions for utilization. We then had completed the grafting and had closu re of the wound as stated above, 2 layers on the forearm, one layer in the hand and we were able to m aintain extra stability and finished the closures. The patient then had a bulky dressing applied, at this time no splint or brace and left the operative suite without evidence of anesthetic or operativ e complication.
[2017-07-30] MEDS: Amiodarone 200 MG TAB PO SCH ×2 (08:29→23:26)
[2017-07-30] MEDS: Spironolactone 25 MG TAB PO SCH (08:29)
[2017-07-30] MEDS: Metoprolol Tartrate 50 MG TAB PO SCH ×2 (08:29→23:27)
[2017-07-30] MEDS ORDERED: Potassium Chloride 20 MEQ TAB PO SCH (09:00)
--- NOTE | 2017-07-30 09:36 | PRG ---
DATE OF SERVICE: 07/30/2017 The patient is doing much better. She wants to get up and work with physical therapy. PHYSICAL EXAMINATION: VITAL SIGNS: Temperature 97.4, pulse 89, respiration 20, O2 sat 96% on 2 liters, blood pressure 178/ 83. HEENT: Unremarkable. NECK: No JVD. CHEST: Clear without wheezing or rhonchi. CARDIAC: S1, S2 regular. ABDOMEN: Soft. EXTREMITIES: No edema except for the left arm which is wrapped. LABORATORY DATA: White blood cell count 7.3, hematocrit 27.8, platelet count 265. Sodium 138, potas sium 3.4, chloride 106, CO2 27, BUN 18, creatinine 0.5, glucose 80. ASSESSMENT: 1. Status post necrotizing fasciitis of the left thumb. 2. Paroxysmal atrial fibrillation. 3. Deconditioning. PLAN: 1. She needs to get up with physical therapy. 2. Continue oral vancomycin for treatment of Clostridium difficile. 3. Continue acyclovir for stomatitis. 4. Discontinue cefazolin if okay with Dr. Whitaker. 5. Discontinue central line, place peripheral IV. 6. Discontinue Floyd catheter.
[2017-07-30] MEDS: hydrALAZINE 20 MG/ML VIAL SLOW IVP PRN (10:26)
--- NOTE | 2017-07-30 10:39 | PDOC.PN ---
- Subjective Encounter Start Date: 07/30/17 Encounter Start Time: 10:37 Patient seen and examined, s/p OR yesterday, no new issues, states she feels well with no issues. Family at bedside, all questions answered. - Objective Resuscitation Status: Resuscitation Status FULL:Full Resuscitation Vital Signs & Weight: Vital Signs (12 hours) Temp Pulse Resp BP BP Pulse Ox 07/30/17 08:25 97.4 F L 89 22 H 178/83 H 96 07/30/17 04:49 80 180/83 H 07/30/17 04:00 97.9 F 81 20 180/83 H 99 07/29/17 22:56 97.9 F 88 18 97 Weight Admit Weight 190 lb Weight 210 lb 1.608 oz Most Recent Monitor Data Heart Rate from ECG 82 NIBP 155/75 NIBP BP-Mean 111 Respiration from ECG 27 SpO2 94 I&O: 07/29/17 07/30/17 07/31/17 06:59 06:59 06:59 Intake Total 1226.5 30 Output Total 1915 710 Balance -688.5 -680 Result Diagrams: 07/30/17 04:45 07/30/17 04:45 Additional Labs: Accuchecks 07/30/17 07/29/17 07/29/17 06:05 17:34 12:12 POC Glucose 77 83 100 07/28/17 22:00 POC Glucose 95 Phys Exam - Physical Examination Constitutional: NAD HEENT: PERRLA, moist MMs, sclera anicteric Neck: no nodes, no JVD, supple, full ROM Respiratory: no wheezing, no rales, no rhonchi Cardiovascular: RRR, no significant murmur, no rub Gastrointestinal: soft, non-tender, no distention, positive bowel sounds Musculoskeletal: no edema, pulses present LUE in bandage Neurological: non-focal, normal sensation Psychiatric: normal affect, A&O x 3 Skin: no rash, normal turgor Dx/Plan (1) Necrotizing fasciitis Code(s): M72.6 - NECROTIZING FASCIITIS Status: Acute (2) Abscess of left hand Code(s): L02.512 - CUTANEOUS ABSCESS OF LEFT HAND Status: Acute Comment: s/ p I&D #1 /, to OR for #2 this afternoon. (3) Atrial fibrillation with RVR Code(s): I48.91 - UNSPECIFIED ATRIAL FIBRILLATION Status: Acute Comment: Continue rate control measures with IV Amiodarone (4) Cardiomyopathy Code(s): I42.9 - CARDIOMYOPATHY, UNSPECIFIED Status: Acute Qualifiers: Cardiomyopathy type: unspecified Qualified Code(s): I42.9 - Cardiomyopathy , unspecified (5) Cellulitis of left forearm Code(s): L03.114 - CELLULITIS OF LEFT UPPER LIMB Status: Acute (6) Colitis due to Clostridium difficile Status: Acute (7) Diarrhea Code(s): R19.7 - DIARRHEA, UNSPECIFIED Status: Acute Qualifiers: Diarrhea type: unspecified type Qualified Code(s): R19.7 - Diarrhea, unspecified (8) Hypertension Code(s): I10 - ESSENTIAL (PRIMARY) HYPERTENSION Status: Chronic Qualifiers: Hypertension type: essential hypertension Qualified Code(s): I10 - Essential (primary) hypertension (9) HENRIETTA (acute kidney injury) Code(s): N17.9 - ACUTE KIDNEY FAILURE, UNSPECIFIED Status: Resolved Comment : Avoid nephrotoxic meds and limit contrast exposure, serial creatinine, follow I/O's and daily weight - Plan * will continue current plan * continue PT for now * DC plans in AM to home with home PT vs rehab depending on PT evaluation * will obtain DC recs from subspecialists * case and plan d/w patient at length, she understands and agrees with this plan
--- NOTE | 2017-07-30 10:55 | PDOC.CTH ---
Cardiology Progress Note - Subjective She is doing well. - Objective Vital Signs Temp Pulse Resp BP BP Pulse Ox 07/30/17 08:25 97.4 F L 89 22 H 178/83 H 96 07/30/17 04:49 80 180/83 H 07/30/17 04:00 97.9 F 81 20 180/83 H 99 07/29/17 22:56 97.9 F 88 18 97 Admit Weight 190 lb Weight 210 lb 1.608 oz 07/29/17 07/30/17 07/31/17 06:59 06:59 06:59 Intake Total 1226.5 30 Output Total 1915 710 Balance -688.5 -680 - Physical Examination General/Neuro: alert & oriented x3, NAD Neck: no JVD present Lungs: CTA, unlabored respirations Heart: RRR Abdomen: NT/ND Extremities: + edema B (1+) - Telemetry Telemetry Rhythm: NSR - Labs Result Diagrams: 07/30/17 04:45 07/30/17 04:45 Troponin/CKMB CK-MB (CK-2) 3.2 ng/mL (0-6.6) 07/17/17 05:55 Troponin I Less than 0.010 ng/mL (< 0.028) 07/17/17 05:55 - Assessment/Plan 1. Afib RVR, currently in sinus. 2. Septic shock, resolved. 3. Strep pyogenes bacteremia. 4. Hand infection, primary source 5. Hypokalemia. 6. Mild LV dysfunction likely due to rapid afib. EF 40-45% 7. C-Diff colitis. PLAN: - On PO amio and BB. - Lovenox on hold today as she will have surgery. - Will need Eliquis 5 mg BID for stroke prophylaxis on discharge. - Will repeat echo today. _ Replace K.
[2017-07-30] MEDS: traMADol HCl 50 MG TAB PO PRN ×2 (16:19→23:25)
[2017-07-31] MEDS: Vancomycin HCl 25 MG/ML Oral PO SCH ×3 (03:21→14:42)
[2017-07-31 05:06] VITALS: TEMP 98
[2017-07-31] MEDS: CEFAZOLIN/Water 2 GM/20 ML SYRINGE SLOW IVP SCH ×2 (05:38→14:42)
[2017-07-31 06:41] LABS: #Eosinphils 0.2 thou/uL (0.0-0.7); #Lymphocytes 1.6 thou/uL (1.20-3.40); #Monocytes 0.6 thou/uL (0.11-0.59); #Neutrophils 2.9 thou/uL (1.40-6.50); %Basophils 0.8 % (0.0-1.0); %Eosinophils 4.5 % (0.0-10.0); %Lymphocytes 28.9 % (21.0-51.0); %Monocytes 11.3 % (0.0-10.0); %Neutrophils 54.5 % (42.0-75.0); Hemoglobin 8.4 g/dL (12.0-16.0); Mean Corpuscular HGB CONC 34.4 g/dL (32.0-36.0); Mean Corpuscular Hemoglobin 34.9 pg (27.0-31.0); Mean Platelet Volume 8.4 fL (7.4-10.4); Platelet Count 278 thou/uL (130-400); RBC Distribution Width 14.1 % (11.5-14.5); Red Blood Cell (RBC) Count 2.39 mill/uL (4.20-5.40); White Blood Cell (WBC) Count 5.4 thou/uL (4.8-10.8)
[2017-07-31 07:06] LABS: ALT (SGPT) 12 U/L (8-55); AST (SGOT) 42 U/L (5-34); Albumin 2.5 g/dL (3.4-4.8); Alkaline Phosphatase 74 U/L (40-150); Anion Gap 11 mmol/L (10-20); BUN (Urea Nitrogen) 13 mg/dL (9.8-20.1); Bilirubin, Total 0.7 mg/dL (0.2-1.2); Calc. Creatinine Clearance 134 mL/min (70-130); Calcium 7.8 mg/dL (7.8-10.44); Carbon Dioxide 27 mmol/L (23-31); Chloride 106 mmol/L (98-107); Estimated GFR-MDRD Greater than 90; Globulin 2.1 g/dL (2.4-3.5); Glucose 87 mg/dL (83-110); Potassium 3.2 mmol/L (3.5-5.1); Protein, Total 4.6 g/dL (6.0-8.3); Sodium 141 mmol/L (136-145)
[2017-07-31] MEDS ORDERED: Potassium Chloride 20 MEQ TAB PO SCH (08:15)
--- NOTE | 2017-07-31 08:39 | PDOC.PULPN ---
Progress Note: Subj/Obj - Subjective Date: 07/31/17 Time: 08:37 Narrative: Doing well. Able to transfer. Not walking much yet - Objective Allergies/Adverse Reactions: Allergies Allergy/AdvReac Type Severity Reaction Status Date / Time codeine Allergy Nausea Verified 07/17/17 12:07 Penicillins Allergy Rash Verified 07/17/17 12:07 malignant hyperthermia Allergy Uncoded 07/20/17 08:07 MAR Reviewed: Yes Vital Signs: Vital Signs Temp 98.0 F 07/31/17 04:00 Pulse 77 07/31/17 04:00 Resp 18 07/31/17 04:00 BP 158/72 H 07/31/17 04:00 Pulse Ox 97 07/31/17 04:00 Intake & Output 07/30/17 07/31/17 07/31/17 18:59 06:59 18:59 Output Total 225 Balance -225 Output: Output, Floyd 225 Other: Voiding Method Indwelling Catheter Bedside Commode Progress Note: Exam - Physical Exam Constitutional: NAD HEENT: PERRLA Neck: no nodes, no JVD Cardiovascular: RRR Respiratory: clear to auscultation bilaterally Gastrointestinal: soft, non-tender Musculoskeletal: no edema Deviation from normal: left arm wrapped Lymphatic: no nodes Psychiatric: normal affect, A&O x 3 Skin: no rash Progress Note: Data - Labs Result Diagrams: 07/31/17 05:49 07/31/17 05:49 Progress Note: A/P - Problems (1) Colitis due to Clostridium difficile Current Visit: Yes Status: Acute (2) Necrotizing fasciitis due to Streptococcus pyogenes Current Visit: Yes Status: Acute Code(s): M72.6 - NECROTIZING FASCIITIS; B95.0 - STREPTOCOCCUS, GROUP A, CAUSING DISEASES CLASSD [id number] (3) Acute respiratory failure with hypoxia Current Visit: Yes Status: Resolved Code(s): J96.01 - ACUTE RESPIRATORY FAILURE WITH HYPOXIA (4) Atrial fibrillation with controlled ventricular response Current Visit: Yes Status: Resolved Code(s): I48.91 - UNSPECIFIED ATRIAL FIBRILLATION - Plan Plan: Basically now a wound care and antibiotic issue. Respiratory status is stable I would suggest some time at inpt rehab
[2017-07-31] MEDS ORDERED: Lisinopril 10 MG TAB PO SCH ×2 (09:00→16:58)
[2017-07-31] MEDS: Metoprolol Tartrate 50 MG TAB PO SCH (09:03)
[2017-07-31] MEDS: Amiodarone 200 MG TAB PO SCH (09:03)
[2017-07-31] MEDS: Spironolactone 25 MG TAB PO SCH (09:03)
[2017-07-31] MEDS: traMADol HCl 50 MG TAB PO PRN ×2 (13:02→17:28)
[2017-07-31 13:04] VITALS: BP 141/70
--- NOTE | 2017-07-31 14:30 | PDOC.EVN ---
Event Note - Event Note Event Note: DC SUMMARY #[id number]
--- NOTE | 2017-07-31 16:57 | PDOC.CTH ---
Cardiology Progress Note - Subjective She is doing much better today. Her echo is pending. - Objective Vital Signs Temp Pulse Resp BP Pulse Ox 07/31/17 13:03 82 18 141/70 H 96 07/31/17 09:01 98.0 F 80 18 159/74 H 94 L 07/31/17 08:55 98.0 F 80 18 95 Admit Weight 190 lb Weight 210 lb 1.608 oz 07/30/17 07/31/17 08/01/17 06:59 06:59 06:59 Intake Total 30 Output Total 710 225 Balance -680 -225 - Physical Examination General/Neuro: alert & oriented x3, NAD Neck: no JVD present Lungs: CTA, unlabored respirations Heart: RRR Abdomen: NT/ND Extremities: + edema B (trace) - Telemetry Telemetry Rhythm: NSR - Labs Result Diagrams: 07/31/17 05:49 07/31/17 05:49 Troponin/CKMB CK-MB (CK-2) 3.2 ng/mL (0-6.6) 07/17/17 05:55 Troponin I Less than 0.010 ng/mL (< 0.028) 07/17/17 05:55 - Assessment/Plan 1. Afib RVR, currently in sinus. 2. Septic shock, resolved. 3. Strep pyogenes bacteremia. 4. Hand infection, primary source 5. Hypokalemia. 6. Mild LV dysfunction likely due to rapid afib. EF 40-45% 7. C-Diff colitis. PLAN: - On PO amio and BB. - Eliquis 5 mg BID for stroke prophylaxis on discharge to be started in 2 days. - Replace K before discharge. .- BB/ACEI for LV dysfunction. - May discharge any time from cardiac perspective. - Follow up in 1 month.
--- NOTE | 2017-08-01 01:36 | DIS ---
DATE OF ADMISSION: 07/17/2017 DATE OF DISCHARGE: 07/31/2017 ADMITTING DIAGNOSES: Septic shock, hypertension, hyperlipidemia. DISCHARGE DIAGNOSES: Septic shock secondary to necrotizing fasciitis of the left upper extremity, hy pertension, hyperlipidemia, C. difficile. HOSPITAL COURSE: This is a 72-year-old female who presented with severe pain in her left hand. She was apparently holding a rake yesterday. Shortly after raking, she had a little cut on her thumb are a, noticed some swelling and then it became cyanotic change in color. The patient apparently started to have chills and presented to the ER due to this. She was found to have severely low blood pressu re with septic shock, admitted to the ICU. The patient was followed by Internal Medicine, Cardiology , Hand Trauma, Infectious Disease and Pulmonary Critical Care team. The patient underwent multiple d ebridements for hand with wound VAC placement as well. The patient of note during her hospitalizatio n was noted to have Clostridium difficile diarrhea, was on p.o. vancomycin for this regimen. Also, d eveloped an oral herpetic lesions for which she was started on acyclovir as well. The [facility] in time of discharge was stable and her wound VAC removed and she will be required local wound car e for further management and care. The patient was given IV antibiotics for appropriate duration of time. Cleared by Infectious Disease to go home without antibiotics IV. P.o. antibiotics and antivir als were written by Infectious Disease team as needed. The patient was also given prescription for a miodarone, lisinopril, metoprolol, and Aldactone for blood pressure control and help with cardiac iss ues. The patient's condition at point in time of discharge was stable. She was back to her baseline apart from the left upper extremity bandage and wound. The patient denied any nausea, vomiting, bernadine rrhea, constipation, chest pains, fevers, chills or shortness of breath. DISPOSITION: Home with home health care for wound care and physical therapy. MEDICATIONS: See MAR. ACTIVITY: As tolerated with assistance as appropriate. The patient is to keep left upper extremity dry. Avoid going in pools or the ocean. CONDITION: Stable. PROGNOSIS: Good. DIET: Low fat, low calorie, high fiber diet. FOLLOWUP: Follow up with General Surgery within 1 week, Cardiology within 3 to 4 weeks and PCP withi n 3 to 4 weeks. Case and plan discussed with patient and family at length. They understand and agree with this plan.
[2017-08-02 13:32] LABS: Actual Bicarbonate (HCO3a) 15.1 mEq/L (22-26); Base Excess (BEa) -11.8 mEq/L (0 (+/-) 2.5); CO2 Tension 37.8 mmHg (35.0-45.0); Hematocrit-ABG 34.4 % (36.0-47.0); Hemoglobin (Hb) 11.3 g/dL (12.0-16.0); O2 Tension (PaO2) 97.3 mmHg (80.0-100.0); pH, Arterial 7.22 (7.35-7.45)
[2017-08-02 13:33] LABS: Analyzer IN Cardio OR; Calcium, Ionized 1.1 mmol/L (1.12-1.30); Puncture Site ALINE
== END 2017-07-31 17:48 | disposition home health service (06) | DRG 853 ==
LOC: ERS 05:29 → CCU 10:28 → 2NO 07-24 22:30 → CCU 07-25 13:04 → 2NO 07-29 23:20
PROVIDERS: ADMIT Internal Medicine Infectious Disease; ATTEND Internal Medicine Infectious Disease
PROC: 0LB40ZZ Excision of Left Upper Arm Tendon, Open Approach (ICD-10-PCS; 2017-07-17)
PROC: 0J9F0ZZ Drainage of Left Upper Arm Subcutaneous Tissue and Fascia, Open Approach (ICD-10-PCS; 2017-07-17)
PROC: 3E033XZ Introduction of Vasopressor into Peripheral Vein, Percutaneous Approach (ICD-10-PCS; 2017-07-17)
PROC: 5A1955Z Respiratory Ventilation, Greater than 96 Consecutive Hours (ICD-10-PCS; 2017-07-17)
PROC: 0BH17EZ Insertion of Endotracheal Airway into Trachea, Via Natural or Artificial Opening (ICD-10-PCS; 2017-07-17)
PROC: 0JBH0ZZ Excision of Left Lower Arm Subcutaneous Tissue and Fascia, Open Approach (ICD-10-PCS; 2017-07-18)
PROC: 0LB60ZZ Excision of Left Lower Arm and Wrist Tendon, Open Approach (ICD-10-PCS; 2017-07-20)
PROC: 0JBK0ZZ Excision of Left Hand Subcutaneous Tissue and Fascia, Open Approach (ICD-10-PCS; 2017-07-21)
PROC: 2W0 Placement, Anatomical Regions, Change (ICD-10-PCS; 2017-07-25)
PROC: 0PBS0ZZ Excision of Left Thumb Phalanx, Open Approach (ICD-10-PCS; principal; 2017-07-29)
PROC: 0HREX74 Replacement of Left Lower Arm Skin with Autologous Tissue Substitute, Partial Thickness, External Approach (ICD-10-PCS; 2017-07-29)
PROC: 0XQFXZZ Repair Left Lower Arm, External Approach (ICD-10-PCS; 2017-07-29)
PROC: 0HR Skin and Breast, Replacement (ICD-10-PCS; 2017-07-29)
PROC: 0HBJXZZ Excision of Left Upper Leg Skin, External Approach (ICD-10-PCS; 2017-07-29)
DX: A40.9 Streptococcal sepsis, unspecified (principal); M72.6 Necrotizing fasciitis; R65.21 Severe sepsis with septic shock; J96.01 Acute respiratory failure with hypoxia; I50.21 Acute systolic (congestive) heart failure; A04.72 Enterocolitis due to Clostridium difficile, not specified as recurrent; N17.9 Acute kidney failure, unspecified; I42.9 Cardiomyopathy, unspecified; L03.114 Cellulitis of left upper limb; L02.512 Cutaneous abscess of left hand; E87.3 Alkalosis; I47.1 Supraventricular tachycardia; E78.5 Hyperlipidemia, unspecified; Z85.3 Personal history of malignant neoplasm of breast; Z88.5 Allergy status to narcotic agent; Z88.0 Allergy status to penicillin; D69.6 Thrombocytopenia, unspecified; E87.6 Hypokalemia; I48.0 Paroxysmal atrial fibrillation; D50.0 Iron deficiency anemia secondary to blood loss (chronic); Z79.01 Long term (current) use of anticoagulants; I11.0 Hypertensive heart disease with heart failure; E66.9 Obesity, unspecified; E83.42 Hypomagnesemia; Z68.38 Body mass index [BMI] 38.0-38.9, adult; Z93.1 Gastrostomy status
CPT/HCPCS: 36415; 36416; 36556; 51702; 71045; 74018; 80053; 80202; 81003; 81015; 82553; 82805; 83605; 83690; 83735; 83880; 84100; 84484; 85025; 85049; 85060; 85300; 85362; 85379; 85384; 85610; 85730; 86850; 86900; 86901; 87070; 87077; 87102; 87186; 87205; 87206; 87324; 87449; 87493; 88304; 88305; 88331; 90471; 90715; 93005; 93010; 93306; 94002; 94003; 94640; 94660; 96361; 96365; 96366; 96367; 96368; 96374; 96376; A4216; C1758; C9113; C9363; G8978-GP-CM; G8979-GP-CK; G8996-GN-CI; G8996-GN-CK; G8996-GN-CL; G8997-GN-CI; G8997-GN-CJ; J0131; J0133; J0171; J0282; J0360; J0692; J1100; J1120; J1160; J1170; J1200; J1644; J1650; J1670; J1720; J1815; J1940; J1956; J2001; J2060; J2250; J2270; J2370; J2405; J2543; J2704; J2765; J3010; J3260; J3370; J3411; J3475; J3480; J3490; J7050; J7070; J7620; P9047; Q0162; S0020

== ENCOUNTER 2017-09-05 13:36 | Outpatient (CLI) | payer MEDICARE, OTHER ==
[2017-09-05 15:20] LABS: Anion Gap 14 mmol/L (10-20); BUN (Urea Nitrogen) 18 mg/dL (9.8-20.1); Calc. Creatinine Clearance 0 mL/min (70-130); Calcium 9.6 mg/dL (7.8-10.44); Carbon Dioxide 25 mmol/L (23-31); Chloride 105 mmol/L (98-107); Estimated GFR-MDRD 60; Glucose 72 mg/dL (83-110); Potassium 4.2 mmol/L (3.5-5.1); Sodium 140 mmol/L (136-145)
[2017-09-05 15:46] LABS: Band 1 % (5-11); Eosinophils 1 % (0-10); Hemoglobin 11.8 g/dL (12.0-16.0); Lymphocytes 15 % (21-51); MDiff Complete? YES; Mean Corpuscular HGB CONC 32.3 g/dL (32.0-36.0); Mean Corpuscular Hemoglobin 32.6 pg (27.0-31.0); Monocytes 2 % (0-10); Neutrophil 80 % (42-75); PLT Morphology Comment Appears Adequate; Platelet Count 295 thou/uL (130-400); RBC Distribution Width 13.3 % (11.5-14.5); Reactive Lymphocytes 1 % (0-10); Red Blood Cell (RBC) Count 3.63 mill/uL (4.20-5.40)
== END 2017-09-05 13:37 | disposition home or self-care (01) ==
LOC: LABBT 13:36
PROVIDERS: ATTEND Orthopaedic Surgery Hand Surgery
DX: Z01.812 Encounter for preprocedural laboratory examination (principal); S41.102A Unspecified open wound of left upper arm, initial encounter
CPT/HCPCS: 80048; 85007; 85027; 93005; 93010

== ENCOUNTER 2017-09-13 07:19 | Day surgery (SDC) | payer MEDICARE, OTHER ==
[2017-09-12 12:32] VITALS: BMI 29.8
[2017-09-13] MEDS ORDERED: CEFAZOLIN/Water 2 GM/20 ML SYRINGE ONE (08:06)
[2017-09-13] MEDS ORDERED: Clindamycin/D5W 600 mg/50 ml Premix Bag ONE (08:07)
[2017-09-13] MEDS ORDERED: Propofol 1,000 MG/100 ML VIAL IV ONE (08:40)
[2017-09-13] MEDS ORDERED: Fentanyl 100 MCG/2 ML VIAL ONE ×2 (08:43→11:42)
[2017-09-13] MEDS ORDERED: Thrombin 5000 UNITS/5 ML VIAL ONE (08:51)
[2017-09-13] MEDS ORDERED: Bacitracin Zinc Ointment 30 gm TUBE ONE (08:51)
[2017-09-13] MEDS ORDERED: Bupivacaine 0.25% HCL 30 ML VIAL ONE (08:51)
[2017-09-13] MEDS ORDERED: Sodium Chloride 0.9% 10 ML ONE (08:52)
[2017-09-13] MEDS ORDERED: PROPOFOL 200 MG/20 ML VIAL ONE (10:07)
[2017-09-13] MEDS ORDERED: PHENYLEPHRINE-NS 100 MCG/ML 10 ML SYRINGE ONE (10:07)
[2017-09-13] MEDS ORDERED: PROPOFOL 20 ML ONE (10:54)
[2017-09-13] MEDS ORDERED: HYDROmorphone 0.5 MG/0.5 ML SYRINGE ONE (11:42)
[2017-09-13] MEDS ORDERED: Ketorolac Tromethamine 30 MG/ML VIAL ONE (12:04)
[2017-09-13] MEDS ORDERED: Ondansetron HCl/PF 4 MG/2 ML Vial ONE (12:17)
[2017-09-13] MEDS ORDERED: Ondansetron ODT 4 MG TAB ONE (13:40)
[2017-09-13] MEDS ORDERED: Promethazine HCl 25 MG/ML VIAL ONE (14:22)
--- NOTE | 2017-09-14 04:39 | OP ---
PREOPERATIVE DIAGNOSES: 1. Left index finger wound 3 x 1.5 cm. 2. Left thumb wound 3 x 1.5 cm. POSTOPERATIVE DIAGNOSES: 1. Left index finger wound 3 x 1.5 cm. 2. Left thumb wound 3 x 1.5 cm. FINDINGS: 1. One and two as above with findings of incomplete healing of the skin graft to the index finger pa lmar, distal end of the proximal phalanx, palmar wound. 2. Complete take of the Integra graft including covering the flex pollicis longus tendon at the tip of the proximal phalanx of the thumb. PROCEDURE PERFORMED: 1. At the index finger debridement of wound. 2. Finger flap from the middle finger to the index finger, 3.5 x 1.5 cm. 3. At the middle finger, 3.0 x 2.0 cm, split-thickness skin graft harvested from the ipsilateral thi gh. 4. At the thumb, 3 x 1.5 cm split-thickness skin graft, both of which were meshed, thought from the left thigh. ESTIMATED BLOOD LOSS: 20 mL. TOURNIQUET TIME: 80 minutes. DESCRIPTION OF PROCEDURE: After successful general LMA technique, the limb was prepped and draped. T carmelo evaluated the thumb and the index finger. We found at the thumb that the Integra graft has 100% take including the palmar aspect where the flex pollicis longus tendon was located. It thus just nee d only skin grafting. We then inspected the index finger and found that over 70% skin grafting not taken, so we debrided th is with combination of [place] blade, 15-blade knife, tenotomy scissor access and a small curet. The index finger remained neurovascular after this and we visualized the flexor digitorum profundus to th is finger. There was no paratenon. For this reason, the skin grafting would not heal here, but since it was the proximal one half of the distal phalanx and the distal one half of the middle phalanx, and it was a palmar wound with an fareed cent finger. A rotational cross finger flap would be indicated and would be accomplished. We then i nflated the tourniquet. After all the debrided tissue finger was bleeding. After exsanguinati on of the limb, we deflated the tourniquet. Then, we created a cross finger flap leaving a paratenon , which we could see the blood vessels in the flap while paratenon was alive in the extensor mechanis m portion. This then, after taking this dissection, we had reached to a point where it could be radha ched, so released the tourniquet, had copious bleeding from the edges and graft was pink throughout. We then placed the index finger in this graft because the graft was angled to fit the defect, sutured in 4 corners and had excellent apposition and the graft remained pink and bleeding from the edges. We then sutured it 4 times more with interrupted 4-0 nylon and achieved appropriate tension. We place the split-thickness skin graft that was harvested from the ipsilateral thigh using 0.20 thic kness with a power Tinybop dermatone, split it equally and placed it over the thumb. All four sides, lateral, medial, dorsal and palmar all the way down to the base of the middle phalanx with skin defec t. We then placed this arm with appropriate small naveed. Bacitracin and Adaptic placed right over the meshed graft here, followed by a thrombin and mineral oil soaked gauze. The same technique was used to cover the donor site on the long finger/middle finger and it was secured appropriately as wel l. The actual thigh donor site for the skin graft was covered with a Tegaderm and so we harvested us ing thrombin-soaked Gelfoam and it became quite covered after the graft was harvested with only minim al bleeding. He then left the operating room with the index long finger together, no evidence of ope rative and anesthetic complications.
== END 2017-09-13 15:35 | disposition home or self-care (01) ==
LOC: SDC 07:19
PROVIDERS: ATTEND Orthopaedic Surgery Hand Surgery
PROC: 0HXGXZZ Transfer Left Hand Skin, External Approach (ICD-10-PCS; principal; 2017-09-13)
PROC: 0HRGX74 Replacement of Left Hand Skin with Autologous Tissue Substitute, Partial Thickness, External Approach (ICD-10-PCS; 2017-09-13)
DX: T81.89XA Other complications of procedures, not elsewhere classified, initial encounter (principal); I10 Essential (primary) hypertension; M72.6 Necrotizing fasciitis; M24.50 Contracture, unspecified joint; Z98.890 Other specified postprocedural states; Z88.0 Allergy status to penicillin; Z88.5 Allergy status to narcotic agent; Z79.899 Other long term (current) drug therapy
CPT/HCPCS: 96374; A4216; J1170; J1885; J2405; J2550; J2704; J3010; J3490; Q0162; S0020

== ENCOUNTER 2017-10-15 08:18 | Day surgery (SDC) | payer MEDICARE, OTHER ==
[2017-10-14 08:22] VITALS: BMI 30.2
[2017-10-15 08:56] LABS: #Eosinphils 0.2 thou/uL (0.0-0.7); #Lymphocytes 1.8 thou/uL (1.20-3.40); #Monocytes 0.5 thou/uL (0.11-0.59); #Neutrophils 2.9 thou/uL (1.40-6.50); %Basophils 0.3 % (0.0-1.0); %Lymphocytes 34.3 % (21.0-51.0); %Monocytes 8.7 % (0.0-10.0); %Neutrophils 53.7 % (42.0-75.0); Hemoglobin 13.1 g/dL (12.0-16.0); Mean Corpuscular HGB CONC 33.7 g/dL (32.0-36.0); Mean Corpuscular Hemoglobin 32.4 pg (27.0-31.0); Mean Corpuscular Volume 96.3 fL (78.0-98.0); Mean Platelet Volume 6.9 fL (7.4-10.4); Platelet Count 218 thou/uL (130-400); RBC Distribution Width 13.1 % (11.5-14.5); Red Blood Cell (RBC) Count 4.04 mill/uL (4.20-5.40); White Blood Cell (WBC) Count 5.4 thou/uL (4.8-10.8)
[2017-10-15] MEDS ORDERED: Propofol 500 MG/50 ML VIAL ONE ×4 (10:17→11:59)
[2017-10-15] MEDS ORDERED: Bacitracin Zinc Ointment 30 gm TUBE ONE ×2 (10:22→11:29)
[2017-10-15] MEDS ORDERED: Bupivacaine 0.25% HCL 30 ML VIAL ONE (10:22)
[2017-10-15] MEDS ORDERED: Thrombin 5000 UNITS/5 ML VIAL ONE (10:22)
[2017-10-15] MEDS ORDERED: Sodium Chloride 0.9% 0 ML ONE (10:22)
[2017-10-15] MEDS ORDERED: Clindamycin/D5W 900 mg/50 ml Premix Bag ONE (10:58)
[2017-10-15] MEDS ORDERED: Fentanyl 100 MCG/2 ML VIAL ONE ×2 (13:04→13:20)
[2017-10-15] MEDS ORDERED: Ketorolac Tromethamine 30 MG/ML VIAL ONE (13:25)
[2017-10-15] MEDS ORDERED: Morphine 4 MG/ML VIAL ONE ×2 (13:28→14:13)
--- NOTE | 2017-10-15 13:54 | OP ---
DATE OF PROCEDURE: 10/15/2017 SURGEON: Darwin Whalen M.D. PREOPERATIVE DIAGNOSES: Failed Integra skin graft to the palmar aspect of the residual limb of the t humb (proximal phalanx where the flexor tendon is also denuded). A successful cross finger flap, now 4 weeks old over the long finger to the index finger. FINDINGS: The area of the tissue over the palmar aspect, the entire palmar half, 2 cm long x 1.5 cm wide was necrotic eschar which was debrided. There was no gross infection, but it was not viable. L eft exposed bone over half this area and some tendon. The flap was for the cross finger flap, she had excellent circulation. PROCEDURE PERFORMED: 1. Separation of cross finger flap from long finger to index finger. 2. Debridement of thumb wound down to, but not including bone. 3. Reverse thenar flap for the thumb palmar random flap. 4. This flap had excellent circulation after raise and sutured with #1 second refill throughout incl uding the end that was sutured to the thumb. 5. Skin graft 2.5 x 1 cm with one-half cm full-thickness from the forearm. DESCRIPTION OF PROCEDURE: After successful general LMA technique, the limb was prepped and draped. Tourniquet applied sterilely. We then the cross finger flap, leaving enough tissue on both sides to close the inset portion of the flap on both digits with 5-0 nylon under no undue tension. Both digital and neurologic intact. No infection and good vasculature. We then did the debridement of the thumb wound using combination of tenotomy scissors, Mason blade, curet and Adson's irrigated with 250 mL and we had exposed bone area over at least 1.5 cm long area and 1-1/2-1 cm wide depending on the soft tissue envelope. There was some tendon at the base. We then visualized the hand and no ticed on the dorsum of the hand where the first and second dorsal metacarpal artery there we already placed a skin graft, making that flap not available, she could not reach a standard cross finger flap to the long finger or the top of the index finger, so we were left with some palmar based flap. For that reason, created a thenar flap, reversed on a wide 2 cm pedicle. Once it was raised, we left th e peritenon underneath intact and done with the tourniquet inflated but after 8 minutes, we released it and this flap was pink throughout, 1 second refill. We then placed a moist dressing over this art t to the forearm and harvested a 3 cm long x 1.5 cm wide full-thickness skin graft and then placed it in the bed of the flap with minimal bolster with bacitracin and Adaptic. It was held with 4-0 chrom ic in a running pattern. Then, we adducted the thumb to relax the flap, and then placed it to cover the bone completely with no undue tension using multiple 5-0 nylons. In this resting position, there was 1 second refill in the flap throughout with no undue tension. The sutures held on the dorsal sk in as well. Adaptic was placed on the index and long finger wounds, bacitracin and Adaptic along with a mineral o il soaked cotton balls were placed on the thumb and the graft was inset which was protected just with soft tissue with soft dressings only and an Javed wrap. She left the operating room without evidence of anesthetic or operative complication.
[2017-10-15] MEDS ORDERED: Ondansetron HCl/PF 4 MG/2 ML Vial ONE (14:36)
[2017-10-15] MEDS ORDERED: PROPOFOL 200 MG/20 ML VIAL ONE (15:17)
[2017-10-15] MEDS ORDERED: Labetalol 100 MG/20 ML MDV ONE (15:17)
== END 2017-10-15 15:52 | disposition home or self-care (01) ==
LOC: SDC 08:18
PROVIDERS: ATTEND Orthopaedic Surgery Hand Surgery
PROC: 0HXGXZZ Transfer Left Hand Skin, External Approach (ICD-10-PCS; principal; 2017-10-15)
PROC: 0JBK0ZZ Excision of Left Hand Subcutaneous Tissue and Fascia, Open Approach (ICD-10-PCS; 2017-10-15)
PROC: 0HRGX73 Replacement of Left Hand Skin with Autologous Tissue Substitute, Full Thickness, External Approach (ICD-10-PCS; 2017-10-15)
DX: T86.821 Skin graft (allograft) (autograft) failure (principal); S41.102A Unspecified open wound of left upper arm, initial encounter; M72.6 Necrotizing fasciitis; M24.549 Contracture, unspecified hand; Z79.899 Other long term (current) drug therapy; Z79.82 Long term (current) use of aspirin; Z88.0 Allergy status to penicillin; Z88.5 Allergy status to narcotic agent; Z96.652 Presence of left artificial knee joint; Z98.890 Other specified postprocedural states
CPT/HCPCS: 36415; 85025; 85652; 96372; 96374; 96375; 96376; A4216; J1885; J2270; J2405; J2704; J3010; J3490; S0020

== ENCOUNTER → 2017-11-19 | Day surgery (SDC) | payer MEDICARE, OTHER ==
[2017-11-14 10:55] VITALS: BMI 30.8
[~2017-11-19] MED LIST: Bacitracin Zinc Ointment 30 gm TUBE ONE; Bupivacaine PF 0.5% 30 ML VIAL ONE; Clindamycin/D5W 900 mg/50 ml Premix Bag ONE; Fentanyl 100 MCG/2 ML VIAL ONE; Ketorolac Tromethamine 30 MG/ML VIAL ONE; Lidocaine 1% PF 5 ML VIAL ONE; Ondansetron HCl/PF 4 MG/2 ML Vial ONE; PHENYLEPHRINE-NS 100 MCG/ML 10 ML SYRINGE ONE; PROPOFOL 200 MG/20 ML VIAL ONE; Propofol 1,000 MG/100 ML VIAL IV ONE; Sodium Chloride 0.9% 0 ML ONE
[2017-11-19 14:57] LABS: #Eosinphils 0.2 thou/uL (0.0-0.7); #Lymphocytes 2.6 thou/uL (1.20-3.40); #Monocytes 0.5 thou/uL (0.11-0.59); #Neutrophils 2.8 thou/uL (1.40-6.50); %Basophils 0.1 % (0.0-1.0); %Eosinophils 2.6 % (0.0-10.0); %Lymphocytes 42.4 % (21.0-51.0); %Monocytes 8.3 % (0.0-10.0); %Neutrophils 46.6 % (42.0-75.0); Hemoglobin 12.8 g/dL (12.0-16.0); Mean Corpuscular HGB CONC 33.1 g/dL (32.0-36.0); Mean Corpuscular Hemoglobin 31.7 pg (27.0-31.0); Mean Corpuscular Volume 95.6 fL (78.0-98.0); Mean Platelet Volume 7.3 fL (7.4-10.4); Platelet Count 238 thou/uL (130-400); RBC Distribution Width 13.4 % (11.5-14.5); Red Blood Cell (RBC) Count 4.03 mill/uL (4.20-5.40)
[2017-11-19 15:04] LABS: Anion Gap 12 mmol/L (10-20); BUN (Urea Nitrogen) 23 mg/dL (9.8-20.1); Calc. Creatinine Clearance 51 mL/min (70-130); Calcium 9.5 mg/dL (7.8-10.44); Carbon Dioxide 26 mmol/L (23-31); Chloride 107 mmol/L (98-107); Estimated GFR-MDRD 45; Glucose 82 mg/dL (83-110); Potassium 3.8 mmol/L (3.5-5.1); Sodium 141 mmol/L (136-145)
--- NOTE | 2017-11-20 15:04 | OP ---
PREOPERATIVE DIAGNOSIS: Left thumb thenar flap unseparated. POSTOPERATIVE DIAGNOSIS: Left thumb thenar flap with a flap intact viable. The amount of coverage of the flap with defect, it was almost 90% of the previous exposed flexor tendon and bone. ESTIMATED BLOOD LOSS: 10 mL. TOURNIQUET TIME: Zero. The flap was intact, greater than 3.5 cm long, no infection that was easily inset. DESCRIPTION OF PROCEDURE: After successful general endotracheal anesthesia, the patient's limb was p repped and draped. The patient then had the flap inspected without tourniquet inflation, we saw andrae bernal the was located and released it without loss of circulation and the finger flap was still pin k at this point. We then had the remaining portion of the skin grafted bed which sutured into the [place] palmar skin in line with the index finger and the second web space using interrupted 4-0 nylon in a simple p attern. The same 4-0 nylon was used to hold the flap that had been resected without complication. A bacitracin, Adaptic, and a gentle 4 x 4 gauze and a Kerlix were applied and the patient left the ope rating room with small Javed wrap and no evidence of anesthetic or operative complication.
--- NOTE | 2017-11-21 07:36 | EKG ---
Test Reason : PREOP Blood Pressure : / mmHG Vent. Rate : 065 BPM Atrial Rate : 065 BPM P-R Int : 162 ms QRS Dur : 086 ms QT Int : 446 ms P-R-T Axes : 024 -36 007 degrees QTc Int : 463 ms Normal sinus rhythm Left axis deviation Voltage criteria for left ventricular hypertrophy Abnormal ECG When compared with ECG of 05-SEP-2017 14:40, No significant change was found Confirmed by DR. Adan SLADE ([id number]) on 11/21/2017 7:36:45 AM Referred By: HERMINIO Confirmed By:DR. Adan SLADE
== END ==
LOC: SDC 11-15 12:26
PROVIDERS: ATTEND Orthopaedic Surgery Hand Surgery
PROC: 0HQGXZZ Repair Left Hand Skin, External Approach (ICD-10-PCS; principal; 2017-11-19)
DX: T86.828 Other complications of skin graft (allograft) (autograft) (principal); M24.549 Contracture, unspecified hand; M24.539 Contracture, unspecified wrist; M72.6 Necrotizing fasciitis; Z79.82 Long term (current) use of aspirin; Z79.899 Other long term (current) drug therapy; Z88.0 Allergy status to penicillin; Z88.5 Allergy status to narcotic agent; Z96.652 Presence of left artificial knee joint; Z98.890 Other specified postprocedural states
CPT/HCPCS: 80048; 85025; 93005; 93010; 96372; 96374; A4216; J0131; J1885; J2001; J2405; J2704; J3010; J3490; S0020

== ENCOUNTER 2018-01-14 05:51 | Day surgery (SDC) | payer MEDICARE, OTHER ==
[2018-01-13 15:22] VITALS: BMI 31.9
[2018-01-14] MEDS ORDERED: Lidocaine 1% (PF) 30 ML VIAL ONE (06:40)
[2018-01-14] MEDS ORDERED: Bacitracin Zinc Ointment 30 gm TUBE ONE (06:40)
[2018-01-14] MEDS ORDERED: Bupivacaine PF 0.5% 30 ML VIAL ONE (06:40)
[2018-01-14] MEDS ORDERED: Thrombin 5000 UNITS/5 ML VIAL ONE ×2 (06:40→06:56)
[2018-01-14] MEDS ORDERED: Midazolam HCl 2 mg/2 ml Vial ONE ×3 (06:45→07:11)
[2018-01-14] MEDS ORDERED: Fentanyl 100 MCG/2 ML VIAL ONE ×2 (06:45→06:52)
[2018-01-14] MEDS ORDERED: Clindamycin/D5W 600 mg/50 ml Premix Bag ONE (06:56)
[2018-01-14 07:01] LABS: #Eosinphils 0.1 thou/uL (0.0-0.7); #Lymphocytes 1.6 thou/uL (1.20-3.40); #Monocytes 0.5 thou/uL (0.11-0.59); #Neutrophils 2.1 thou/uL (1.40-6.50); %Basophils 0.9 % (0.0-1.0); %Eosinophils 3.2 % (0.0-10.0); %Lymphocytes 36.7 % (21.0-51.0); %Monocytes 12.1 % (0.0-10.0); %Neutrophils 47.2 % (42.0-75.0); Hemoglobin 12.9 g/dL (12.0-16.0); Mean Corpuscular HGB CONC 32.6 g/dL (32.0-36.0); Mean Corpuscular Hemoglobin 31.3 pg (27.0-31.0); Mean Corpuscular Volume 96.2 fL (78.0-98.0); Mean Platelet Volume 7.4 fL (7.4-10.4); Platelet Count 232 thou/uL (130-400); Red Blood Cell (RBC) Count 4.12 mill/uL (4.20-5.40); White Blood Cell (WBC) Count 4.4 thou/uL (4.8-10.8)
[2018-01-14 07:24] LABS: Anion Gap 12 mmol/L (10-20); BUN (Urea Nitrogen) 25 mg/dL (9.8-20.1); Calc. Creatinine Clearance 60 mL/min (70-130); Calcium 9.4 mg/dL (7.8-10.44); Carbon Dioxide 26 mmol/L (23-31); Chloride 108 mmol/L (98-107); Estimated GFR-MDRD 53; Glucose 104 mg/dL (83-110); Potassium 3.8 mmol/L (3.5-5.1); Sodium 142 mmol/L (136-145)
[2018-01-14] MEDS ORDERED: Ketorolac Tromethamine 30 MG/ML VIAL ONE (08:59)
[2018-01-14] MEDS ORDERED: Bupivacaine HCl 0.5%/Epinephrine 1:200,000/PF 30 ml Vial ONE (17:27)
[2018-01-14] MEDS ORDERED: PROPOFOL 200 MG/20 ML VIAL ONE (17:34)
--- NOTE | 2018-01-15 01:31 | OP ---
DATE OF PROCEDURE: 01/14/2018 PREOPERATIVE DIAGNOSIS: Left thumb no gross bone infection seen. PROCEDURE PERFORMED: 1. Resection, distal aspect middle phalanx, left thumb bone. 2. Wound debridement. 3. Wound closure 3.5 cm including the previous flap. BONE CULTURE SENT: Yes. FINDINGS: No gross infection and only mild necrosis. INDICATIONS: The patient returns for staged wound management after having a thenar flap designed to cover the end of her thumb as well as the flexor pollicis longus tendon with successful coverage, but then it retracted leaving the exposed portion of the distal phalanx, mid of the proximal phalanx dis tally. DESCRIPTION OF PROCEDURE: After successful general LMA technique, the limb was prepped and draped. We gave a 10 mL 0.5% Marcaine block, after doing a timeout the level of the thumb metacarpophalangea l joint. Then, we began by first resecting the visible bone finding no gross infection, we sent this to the lab anyway. We then finished with a wound debridement and then closure of the wound after we finished resecting the bone without evidence of anesthetic or operative complication. Culture was s ent along with the specimen to rule out osteomyelitis and the patient tolerated the procedure well an d was splinted.
== END 2018-01-14 09:30 | disposition home or self-care (01) ==
LOC: SDC 05:51
PROVIDERS: ATTEND Orthopaedic Surgery Hand Surgery
PROC: 0PBS0ZZ Excision of Left Thumb Phalanx, Open Approach (ICD-10-PCS; principal; 2018-01-14)
DX: M86.642 Other chronic osteomyelitis, left hand (principal); T86.828 Other complications of skin graft (allograft) (autograft); I96 Gangrene, not elsewhere classified; I10 Essential (primary) hypertension; Z79.82 Long term (current) use of aspirin; Z79.899 Other long term (current) drug therapy; Z88.0 Allergy status to penicillin; Z88.5 Allergy status to narcotic agent; Z98.890 Other specified postprocedural states
CPT/HCPCS: 36415; 80048; 85025; 85652; 87070; 87077; 87186; 87205; 88307; 88311; J0670; J1885; J2001; J2250; J2704; J3010; J3490; S0020

== ENCOUNTER 2018-12-16 14:04 | Outpatient (CLI) | payer MEDICARE, OTHER ==
--- NOTE | 2018-12-16 14:29 | RAD ---
Exam: Chest 2 views HISTORY:Dyspnea Comparison: 07/25/2017 FINDINGS: Lungs: There are patchy bibasilar opacities, with elevation of right hemidiaphragm Cardiac silhouette:Enlarged cardiac silhouette Pulmonary vessels: Mild prominence of central pulmonary vasculature Pleural Spaces: Pleural-based opacity at the inferior right chest may relate small volume pleural flu id Pneumothorax: None Osseous abnormalities: None of acuity. IMPRESSION: Bibasilar patchy densities which may be on the basis of pneumonitis in the correct clinic al context. Small right pleural effusion.
== END 2018-12-16 14:05 | disposition home or self-care (01) ==
LOC: RAD 14:04
PROVIDERS: ATTEND Internal Medicine Critical Care Medicine
DX: R06.00 Dyspnea, unspecified (principal); J18.9 Pneumonia, unspecified organism
CPT/HCPCS: 71046

== ENCOUNTER 2019-01-29 10:03 | Outpatient (CLI) | payer MEDICARE, OTHER | END 2019-01-29 10:04 | disposition home or self-care (01) | LOC: CP 10:03 | PROVIDERS: ATTEND Internal Medicine Critical Care Medicine | DX: R06.00 Dyspnea, unspecified (principal); R91.8 Other nonspecific abnormal finding of lung field | CPT/HCPCS: 94060; 94727; 94729 ==

== ENCOUNTER 2023-02-01 08:37 | Day surgery (SDC) | payer MEDICARE, OTHER ==
[2023-01-31 13:06] VITALS: BMI 26.9
[2023-02-01] MEDS ORDERED: Lidocaine 1% w/Epinephrine 1:100K 20 ML VIAL ONE (10:24)
== END 2023-02-01 12:00 | disposition home or self-care (01) ==
LOC: SDC 08:37
PROVIDERS: ATTEND Internal Medicine Cardiovascular Disease
PROC: 0JPT02Z Removal of Monitoring Device from Trunk Subcutaneous Tissue and Fascia, Open Approach (ICD-10-PCS; principal; 2023-02-01)
DX: I48.0 Paroxysmal atrial fibrillation (principal); I10 Essential (primary) hypertension; E78.5 Hyperlipidemia, unspecified; I42.0 Dilated cardiomyopathy; I47.10 Supraventricular tachycardia, unspecified; C50.919 Malignant neoplasm of unspecified site of unspecified female breast; Z88.0 Allergy status to penicillin; Z88.5 Allergy status to narcotic agent
CPT/HCPCS: 33286

== ENCOUNTER 2023-12-18 11:00 | Outpatient (CLI) | payer MEDICARE, OTHER | END 2023-12-18 11:01 | disposition home or self-care (01) | LOC: PET 11:00 | PROVIDERS: ATTEND Internal Medicine Hematology & Oncology | DX: C50.811 Malignant neoplasm of overlapping sites of right female breast (principal); C79.51 Secondary malignant neoplasm of bone | CPT/HCPCS: 78815; A9552 ==

== ENCOUNTER 2024-10-14 12:30 | Outpatient (CLI) | payer MEDICARE, OTHER | END 2024-10-14 12:31 | disposition home or self-care (01) | LOC: PET 12:30 | PROVIDERS: ATTEND Internal Medicine Hematology & Oncology | DX: D51.8 Other vitamin B12 deficiency anemias (principal); C50.811 Malignant neoplasm of overlapping sites of right female breast; C79.51 Secondary malignant neoplasm of bone; J90 Pleural effusion, not elsewhere classified | CPT/HCPCS: 78815; A9552 ==

== ENCOUNTER 2024-10-29 09:10 | Outpatient (CLI) | payer MEDICARE, OTHER | END 2024-10-29 09:11 | disposition home or self-care (01) | LOC: RAD 09:10 | PROVIDERS: ATTEND Internal Medicine Critical Care Medicine | DX: R06.00 Dyspnea, unspecified (principal); J98.4 Other disorders of lung; J98.6 Disorders of diaphragm | CPT/HCPCS: 71046 ==

== ENCOUNTER 2025-01-29 09:48 | Outpatient (CLI) | payer MEDICARE, OTHER | END 2025-01-29 09:49 | disposition home or self-care (01) | LOC: BICCT 09:48 | PROVIDERS: ATTEND Internal Medicine Critical Care Medicine | DX: J90 Pleural effusion, not elsewhere classified (principal); J98.4 Other disorders of lung | CPT/HCPCS: 71250 ==

== ENCOUNTER → 2025-02-24 | Day surgery (SDC) | payer MEDICARE, OTHER ==
[2025-02-23 15:59] VITALS: BMI 25.9
[2025-02-24 15:36] LABS: RBC Count-Automated (BF) 854 /cu.mm; WBC/Nucleated-Auto (BF) 431 /cu.mm
[2025-02-24 15:38] LABS: Fluid, pH - Pleural Fld Greater than 7.500 (7.60 - 7.66)
[2025-02-24 15:56] LABS: Fluid, Triglycerides 21 mg/dL (Not Available); Pleural Fluid, Amylase Less than 30 U/L (Not Available); Pleural Fluid, Glucose 96 mg/dL; Pleural Fluid, LDH 234 U/L (Not Available); Pleural Fluid, Protein 4.7 g/dL
[2025-02-24 16:12] LABS: Cell Count Non Hematic 25 %
== END ==
LOC: SDC 13:17
PROVIDERS: ATTEND Internal Medicine Critical Care Medicine
PROC: 0W993ZZ Drainage of Right Pleural Cavity, Percutaneous Approach (ICD-10-PCS; principal; 2025-02-24)
DX: J90 Pleural effusion, not elsewhere classified (principal); C50.919 Malignant neoplasm of unspecified site of unspecified female breast; Z88.0 Allergy status to penicillin; Z88.5 Allergy status to narcotic agent
CPT/HCPCS: 32555; 82150; 82945; 83615; 83986; 84157; 84478; 85060; 87116; 87206; 88112; 88305; 88341; 88342; 89051